=== PATIENT | male | born 1945 | race Caucasian/White ===

== ENCOUNTER 2020-03-22 06:31 | Outpatient (REF) | payer MEDICARE, SELFPAY ==
[2020-03-22 08:06] LABS: Cholesterol 104 mg/dL; Glucose Fasting 142 mg/dL (60-99); HDL Cholesterol 40 mg/dL; LDL Cholesterol Calculated 53 mg/dl; Triglycerides 58 mg/dL
[2020-03-22 10:31] LABS: Estimated Average Glucose 151 mg/dL; Hemoglobin A1c % 6.9 %
== END 2020-03-22 06:32 | disposition home or self-care (01) ==
LOC: HO.LAB 06:31
PROVIDERS: PCP Internal Medicine; Visit Provider Internal Medicine
DX: E11.9 Type 2 diabetes mellitus without complications (principal)
CPT/HCPCS: 36415; 80061; 82947; 83036

== ENCOUNTER → 2020-04-29 12:24 | Outpatient (BNVA) | payer MEDICARE, SELFPAY | PROVIDERS: PCP Internal Medicine; Referring Provider Internal Medicine; Visit Provider Internal Medicine Cardiovascular Disease | DX: I25.118 Atherosclerotic heart disease of native coronary artery with other forms of angina pectoris (principal); Z79.82 Long term (current) use of aspirin; Z79.899 Other long term (current) drug therapy | CPT/HCPCS: 99212 ==

== ENCOUNTER 2020-07-24 | Outpatient (REF) | payer MEDICARE, SELFPAY | END 2020-07-24 00:01 | disposition home or self-care (01) | LOC: HO.VC | PROVIDERS: Visit Provider Internal Medicine | DX: Z23 Encounter for immunization (principal) | CPT/HCPCS: 0011A ==

== ENCOUNTER 2020-08-20 | Outpatient (REF) | payer MEDICARE, SELFPAY | END 2020-08-20 00:01 | disposition home or self-care (01) | LOC: HO.VC | PROVIDERS: Visit Provider Internal Medicine | DX: Z23 Encounter for immunization (principal) | CPT/HCPCS: 0012A ==

== ENCOUNTER 2020-09-06 06:23 | Outpatient (REF) | payer MEDICARE, SELFPAY ==
[2020-09-06 07:34] LABS: Estimated Average Glucose 151 mg/dL; Hemoglobin A1c % 6.9 %
[2020-09-06 07:48] LABS: Cholesterol 114 mg/dL; HDL Cholesterol 42 mg/dL; LDL Cholesterol Calculated 57 mg/dl; Triglycerides 75 mg/dL
== END 2020-09-06 06:24 | disposition home or self-care (01) ==
LOC: HO.LAB 06:23
PROVIDERS: PCP Internal Medicine; Visit Provider Internal Medicine
DX: E11.9 Type 2 diabetes mellitus without complications (principal)
CPT/HCPCS: 36415; 80061; 83036

== ENCOUNTER → 2020-10-21 09:03 | Outpatient (BNVA) | payer MEDICARE, SELFPAY | PROVIDERS: PCP Internal Medicine; Referring Provider Internal Medicine; Visit Provider Internal Medicine Cardiovascular Disease | DX: I20.8 Other forms of angina pectoris (principal); I45.10 Unspecified right bundle-branch block | CPT/HCPCS: 99212 ==

== ENCOUNTER 2021-01-10 06:02 | Outpatient (REF) | payer MEDICARE, SELFPAY ==
[2021-01-10 08:07] LABS: Cholesterol 107 mg/dL; HDL Cholesterol 41 mg/dL; LDL Cholesterol Calculated 51 mg/dl; Triglycerides 75 mg/dL
[2021-01-10 08:12] LABS: Estimated Average Glucose 157 mg/dL; Hemoglobin A1c % 7.1 %
== END 2021-01-10 06:03 | disposition home or self-care (01) ==
LOC: HO.LAB 06:02
PROVIDERS: PCP Internal Medicine; Visit Provider Internal Medicine
DX: E11.9 Type 2 diabetes mellitus without complications (principal)
CPT/HCPCS: 36415; 80061; 83036

== ENCOUNTER 2021-03-17 08:51 | Outpatient (REF) | payer MEDICARE, SELFPAY | END 2021-03-17 08:52 | disposition home or self-care (01) | LOC: HO.LAB 08:51 | PROVIDERS: PCP Internal Medicine; Referring Provider Internal Medicine; Visit Provider Internal Medicine Cardiovascular Disease | DX: I25.10 Atherosclerotic heart disease of native coronary artery without angina pectoris (principal); I45.10 Unspecified right bundle-branch block | CPT/HCPCS: 36415; 84484; 93005; 99212 ==

== ENCOUNTER 2021-07-03 06:25 | Outpatient (REF) | payer MEDICARE, SELFPAY ==
[2021-07-03 06:35] LABS: MANUAL DIFF FLAG NO
[2021-07-03 07:17] LABS: Basophils Absolute Auto 0.1 X10*3/uL (0.0-0.2); Basophils Percent Auto 0.7 % (0-2); Eosinophils Percent Auto 0.2 % (0-4); Hematocrit 47.2 % (42.0-52.0); Hemoglobin 15.5 g/dl (14.0-18.0); Imm Gran Abs Auto 0.04 X10*3/uL (0.00-0.03); Imm Gran Pct Auto 0.5 % (0.0-0.4); Lymphocytes Absolute Auto 2.1 X10*3/uL (1.2-4.9); Lymphocytes Percent Auto 24.8 % (20-40); Mean Corpuscular HGB Conc 32.8 g/dl (31.0-36.0); Mean Corpuscular Hemoglobin 30.1 pg (27.0-33.0); Mean Corpuscular Volume 91.7 fL (80.0-98.0); Mean Platelet Volume 9.3 fL (9.4-12.4); Monocytes Absolute Auto 0.8 X10*3/uL (0.1-1.2); Monocytes Percent Auto 9.7 % (2-11); Neutrophils Absolute Auto 5.4 x10*3/uL (2.0-8.3); Neutrophils Percent Auto 64.1 % (45-73); Platelet Count 337 X10*3/uL (160-400); Red Blood Count 5.15 X10*6/uL (4.60-5.80); Red Cell Distribution Width 12.9 % (11.0-16.0); White Blood Count 8.4 X10*3/uL (4.8-10.8)
[2021-07-03 07:39] LABS: Alanine Aminotransferase 23 U/L (0-40); Alkaline Phosphatase 83 U/L (39-117); Anion Gap 10 (12-20); Aspartate Amino Transferase 18 U/L (5-37); Bilirubin Total 0.8 mg/dL (0.0-1.0); Blood Urea Nitrogen 18 mg/dL (9-16); Calcium 9.9 mg/dL (8.4-10.2); Carbon Dioxide 30 mmol/L (22-29); Chloride 104 mmol/L (96-108); Cholesterol 109 mg/dL; Estimated Glomerular Filt Rate > 60; Glucose Fasting 134 mg/dL (60-99); HDL Cholesterol 38 mg/dL; LDL Cholesterol Calculated 54 mg/dl; Potassium 4.7 mmol/L (3.3-5.1); Sodium 139 mmol/L (135-145); Total Protein 7.3 g/dL (6.5-8.0); Triglycerides 88 mg/dL
== END 2021-07-03 06:26 | disposition home or self-care (01) ==
LOC: HO.LAB 06:25
PROVIDERS: PCP Internal Medicine; Visit Provider Internal Medicine
DX: Z00.00 Encounter for general adult medical examination without abnormal findings (principal); Z13.0 Encounter for screening for diseases of the blood and blood-forming organs and certain disorders involving the immune mechanism
CPT/HCPCS: 36415; 80053; 80061; 85025

== ENCOUNTER → 2021-07-14 09:18 | Outpatient (BNVA) | payer MEDICARE, SELFPAY | PROVIDERS: PCP Internal Medicine; Referring Provider Internal Medicine; Visit Provider Internal Medicine Cardiovascular Disease | DX: I25.10 Atherosclerotic heart disease of native coronary artery without angina pectoris (principal); I45.10 Unspecified right bundle-branch block | CPT/HCPCS: 99212 ==

== ENCOUNTER 2021-11-20 09:58 | Outpatient (REF) | payer MEDICARE, SELFPAY ==
[2021-11-20 10:08] LABS: MANUAL DIFF FLAG NO
[2021-11-20 10:23] LABS: Basophils Percent Auto 0.5 % (0-2); Eosinophils Percent Auto 0.1 % (0-4); Hemoglobin 15.3 g/dl (14.0-18.0); Imm Gran Abs Auto 0.03 X10*3/uL (0.00-0.03); Imm Gran Pct Auto 0.4 % (0.0-0.4); Lymphocytes Absolute Auto 1.9 X10*3/uL (1.2-4.9); Lymphocytes Percent Auto 22.9 % (20-40); Mean Corpuscular Hemoglobin 30.7 pg (27.0-33.0); Mean Corpuscular Volume 90.4 fL (80.0-98.0); Mean Platelet Volume 9.4 fL (9.4-12.4); Monocytes Absolute Auto 0.9 X10*3/uL (0.1-1.2); Monocytes Percent Auto 10.5 % (2-11); Neutrophils Absolute Auto 5.3 x10*3/uL (2.0-8.3); Neutrophils Percent Auto 65.6 % (45-73); Platelet Count 315 X10*3/uL (160-400); Red Blood Count 4.98 X10*6/uL (4.60-5.80); Red Cell Distribution Width 13.4 % (11.0-16.0); White Blood Count 8.1 X10*3/uL (4.8-10.8)
[2021-11-20 10:40] LABS: Estimated Average Glucose 157 mg/dL; Hemoglobin A1c % 7.1 %
[2021-11-20 11:05] LABS: Alanine Aminotransferase 30 U/L (0-40); Albumin Level 4.2 g/dL (3.5-5.0); Alkaline Phosphatase 81 U/L (39-117); Anion Gap 12 (12-20); Aspartate Amino Transferase 21 U/L (5-37); Bilirubin Total 0.8 mg/dL (0.0-1.0); Blood Urea Nitrogen 18 mg/dL (9-16); Calcium 9.9 mg/dL (8.4-10.2); Carbon Dioxide 27 mmol/L (22-29); Chloride 103 mmol/L (96-108); Cholesterol 106 mg/dL; Estimated Glomerular Filt Rate > 60; Glucose Fasting 106 mg/dL (60-99); HDL Cholesterol 43 mg/dL; LDL Cholesterol Calculated 51 mg/dl; Potassium 4.8 mmol/L (3.3-5.1); Sodium 137 mmol/L (135-145); Total Protein 7.3 g/dL (6.5-8.0); Triglycerides 61 mg/dL
== END 2021-11-20 09:59 | disposition home or self-care (01) ==
LOC: HO.LAB 09:58
PROVIDERS: PCP Internal Medicine; Visit Provider Internal Medicine
DX: Z00.00 Encounter for general adult medical examination without abnormal findings (principal); E11.9 Type 2 diabetes mellitus without complications; Z13.0 Encounter for screening for diseases of the blood and blood-forming organs and certain disorders involving the immune mechanism
CPT/HCPCS: 36415; 80053; 80061; 83036; 85025

== ENCOUNTER → 2022-02-19 14:38 | Outpatient (BNVA) | payer MEDICARE, SELFPAY | PROVIDERS: PCP Internal Medicine; Referring Provider Internal Medicine; Visit Provider Nurse Practitioner Family | DX: I25.10 Atherosclerotic heart disease of native coronary artery without angina pectoris (principal); I49.3 Ventricular premature depolarization; I45.10 Unspecified right bundle-branch block; E78.5 Hyperlipidemia, unspecified | CPT/HCPCS: 93005; 99212 ==

== ENCOUNTER 2022-03-12 09:24 | Inpatient (IN) | payer MEDICARE, SELFPAY ==
--- NOTE | ~2022-03-12 | NM_ITS ---
RADIONUCLIDE GASTROINTESTINAL BLEEDING STUDY CLINICAL INDICATION: Suspected GI bleeding. PROCEDURE: Following the bolus intravenous administration of 25 millicuries technetium 99m labeled autologous red blood cells, rapid sequence dynamic gamma scintillation camera images were obtained over the abdomen and pelvis for an initial observation interval of 90 minutes. Subsequent frontal, lateral images were also obtained. FINDINGS: No abnormal accumulations of activity are seen in the abdomen or pelvis. Incidental note is made of progressive filling of distended bladder. NM/NM GI bleeding IMPRESSION: No gastrointestinal hemorrhage is identified. This critical result was discussed with Tonia Olson NP at 4:47 PM on 03/12/2022 and it was ascertained that the content and urgency of the report was understood at the time of direct communication.
[2022-03-12 09:35] VITALS: BP 128/76; PULSE 68; RESP 18; TEMP 36.2; O2SAT 95; BMI 25.0
--- NOTE | 2022-03-12 09:42 | ECG_ITS ---
Test Reason : gi bleed Blood Pressure : / mmHG Vent. Rate : 066 BPM Atrial Rate : 066 BPM P-R Int : 178 ms QRS Dur : 110 ms QT Int : 394 ms P-R-T Axes : 015 -24 036 degrees QTc Int : 413 ms Normal sinus rhythm Incomplete right bundle branch block Borderline ECG When compared with ECG of 07-JUL-2018 17:26, Premature ventricular complexes are no longer Present Referred By: Generic ED Physician Electronically Signed By:KAYLIN VELAZQUEZ
[2022-03-12 10:05] LABS: MANUAL DIFF FLAG NO
[2022-03-12 10:07] LABS: Basophils Absolute Auto 0.1 X10*3/uL (0.0-0.2); Basophils Percent Auto 0.5 % (0-2); Eosinophils Percent Auto 0.1 % (0-4); Hematocrit 40.8 % (42.0-52.0); Hemoglobin 13.8 g/dl (14.0-18.0); Imm Gran Abs Auto 0.03 X10*3/uL (0.00-0.03); Imm Gran Pct Auto 0.3 % (0.0-0.4); Lymphocytes Absolute Auto 1.7 X10*3/uL (1.2-4.9); Mean Corpuscular HGB Conc 33.8 g/dl (31.0-36.0); Mean Corpuscular Hemoglobin 30.6 pg (27.0-33.0); Mean Corpuscular Volume 90.5 fL (80.0-98.0); Mean Platelet Volume 9.2 fL (9.4-12.4); Monocytes Absolute Auto 0.9 X10*3/uL (0.1-1.2); Monocytes Percent Auto 9.3 % (2-11); Neutrophils Absolute Auto 6.6 x10*3/uL (2.0-8.3); Neutrophils Percent Auto 71.8 % (45-73); Platelet Count 319 X10*3/uL (160-400); Red Blood Count 4.51 X10*6/uL (4.60-5.80); Red Cell Distribution Width 12.8 % (11.0-16.0); White Blood Count 9.2 X10*3/uL (4.8-10.8)
[2022-03-12 10:23] LABS: Alanine Aminotransferase 23 U/L (0-40); Albumin Level 4.1 g/dL (3.5-5.0); Alkaline Phosphatase 74 U/L (39-117); Anion Gap 13 (12-20); Aspartate Amino Transferase 17 U/L (5-37); Bilirubin Direct 0.4 mg/dL (0.0-0.5); Bilirubin Total 0.9 mg/dL (0.0-1.0); Blood Urea Nitrogen 24 mg/dL (9-16); Calcium 9.2 mg/dL (8.4-10.2); Carbon Dioxide 26 mmol/L (22-29); Chloride 103 mmol/L (96-108); Creatinine Clr Calc Pharmacy 81.9; Estimated Glomerular Filt Rate > 60; Glucose Random 170 mg/dL (60-115); Lipase 35 U/L (8-78); Potassium 4.8 mmol/L (3.3-5.1); Sodium 137 mmol/L (135-145); Total Protein 6.9 g/dL (6.5-8.0)
[2022-03-12 10:28] LABS: Troponin-I High Sensitivity 9.7 ng/L (<3.5-35.0)
[2022-03-12 10:30] LABS: COVID-19 Test Negative (Negative); IDNOW Serial# 55D5AD1C
[2022-03-12 11:57] VITALS: BP 133/81; PULSE 62; RESP 18; TEMP 36.5; O2SAT 99
--- NOTE | 2022-03-12 11:58 | ED_ITS ---
HPI - GI Bleed General Chief complaint: GI Bleed Stated complaint: GI Bleed Time Seen by Provider: 03/12/22 10:26 Source: patient and family Mode of arrival: ambulatory Limitations: no limitations History of Present Illness HPI Narrative: 76 yo male with history of CAD on 81 mg ASA, divert with partial colectomy, HLD here with complaints of BRB per rectum since yesterday up to 6 episodes filling the toilet bowl with lower abdominal cramping. No nausea, vomiting, diarrhea, fevers, chills, urinary symptoms Last scope [address] Loza showed diverticulosis, colitis Related Data Home Medications Medication Instructions Recorded Confirmed aspirin 81 mg tablet,delayed 81 mg PO DAILY 04/29/20 03/12/22 release esomeprazole magnesium 40 mg 40 mg PO DAILY 04/29/20 03/12/22 capsule,delayed release mesalamine 0.375 gram 1.5 g PO DAILY 04/29/20 03/12/22 capsule,extended release 24 hr Previous Rx's Medication Instructions Recorded atorvastatin 40 mg tablet 40 mg PO DAILY #90 tabs 02/09/22 Allergies Allergy/AdvReac Type Severity Reaction Status Date / Time amoxicillin [Augmentin] Allergy Severe ANAPHYLAXIS Verified 02/19/22 14:52 clavulanic acid Allergy Severe ANAPHYLAXIS Verified 02/19/22 14:52 [CLAVULANIC ACID] Penicillins [PENICILLINS] Allergy Severe ANAPHYLAXIS Verified 02/19/22 14:52 sulfamethoxazole Allergy Severe Rash Verified 02/19/22 14:52 [From Bactrim] trimethoprim [From Bactrim] Allergy Severe Rash Verified 02/19/22 14:52 metronidazole [From FLAGYL] Allergy Intermediate RASH,NAUSEA Verified 02/19/22 14:52 VOMITING ciprofloxacin [From CIPRO] Allergy Mild RASH Verified 02/19/22 14:52 Iodinated Contrast Media Allergy Unknown RASH Verified 02/19/22 14:52 [IV Dye, Iodine Containing] levofloxacin [From LEVAQUIN] Allergy Unknown RASH Verified 02/19/22 14:52 metoprolol Allergy Unknown rash Verified 02/19/22 14:52 piperacillin [Zosyn] Allergy Unknown UNK. Verified 02/19/22 14:52 Sulfa (Sulfonamide Allergy Unknown rash Verified 02/19/22 14:52 Antibiotics) tazobactam [Zosyn] Allergy Unknown UNK. Verified 02/19/22 14:52 Review of Systems Review of Systems: Yes all other systems are reviewed and are negative Constitutional: Constitutional: Reports no additional constitutional complaints, Denies body ache(s), Denies chills, Denies fever(s), Denies he adache(s) and Denies weakness Eyes: Eyes: Reports no additional eye complaints and Denies change in vision ENT: Reports system reviewed and no additional complaints, except as documented, Denies dizziness, Denies headache(s), Denies nasal congestion, Denies nasal discharge and Denies neck pain Cardiovascular: Cardiovascular: Reports no additional cardiovascular complaints, Denies chest pain, Denies leg edema and Denies dyspnea Respiratory: Respiratory: Reports no additional respiratory complaints, Denies cough and Denies dyspnea Gastrointestinal: Gastrointestinal: Reports no additional gastrointestinal complaints, Reports abdominal pain, Reports hematochezia, Denies diarrhea, Denies nausea and Denies vomiting Genitourinary: Genitourinary: Denies urinary incontinence Musculoskeletal: Musculoskeletal: Reports no additional musculoskeletal complaints, Denies back pain, Denies arthralgias, Denies joint swelling, Denies neck pain, Denies numbness and Denies tingling Integumentary/Breasts: Skin/Breast: Reports system reviewed and no additional complaints, except as docu and Denies rash Neurologic: Reports system reviewed and no additional complaints, except as documented, Denies Abnormal speech present, Denies dizziness, Denies headache(s), Denies numbness, Denies tingling and Denies weakness PMFSH Past Medical History Attestation statement: The following information was validated with the patient. Source: old records reviewed and nursing notes reviewed Medical History CAD (coronary artery disease) Colitis Diverticulitis GERD (gastroesophageal reflux disease) Hepatic abscess Hyperglycemia Hyperlipidemia PVC (premature ventricular contraction) RBBB Stable angina Surgical History H/O colectomy History of colonoscopy History of surgery on arm Hx of hernia repair Family History Family History Family/Other Prostate cancer CVD (cardiovascular disease) Father CVD (cardiovascular disease) Social History Social History (Reviewed 03/12/22 @ 18:02 by MASSIEL Delvalle Housing: House Alcohol intake: current Alcohol intake frequency: holidays/special occasions only Patient Tobacco Use Status: Former Tobacco user e-Cigarette/Vaping Use: Never Used Second Hand Smoke Exposure: No Use of substances other than those prescribed or required for medical reasons: No Advance Directives: No Advance Directives Information Provided: No service: No Current occupational status: retired Cognitive needs: No Hearing needs: No Vision needs: No Physical Exam Vital Signs: Vital Signs: Last Vital Signs Temp 97.7 F 03/12/22 11:57 Pulse 67 03/12/22 16:18 Resp 18 03/12/22 11:57 BP 127/74 03/12/22 16:18 Pulse Ox 96 03/12/22 16:18 O2 Del Method 03/12/22 16:18 BMI result Body Mass Index 25.0 Const: General: cooperative, healthy appearing, comfortable and no acute distress Orientation/consciousness: patient oriented x3 Limitations: no limitations HEENT: Head: Yes normal to inspection Ears: hearing grossly normal bilaterally General nose exam: Normal external nose present Face and sinus: Yes normal facial exam Mouth: Normal oral and palatal mucosa present Throat: Yes posterior oropharynx normal Eyes: General: appearance normal, both eyes and all related structures Pupils: Equal, round and reactive pupils present Neck: Neck: Yes normal visual inspection Chest: Chest palpation & inspection: normal inspection of the chest Resp: Effort & Inspection: normal respiratory effort Auscultation: clear to auscultation bilaterally Cardio: Rate: regular rate Rhythm: regular rhythm Peripheral pulses: Peripheral pulses 2+ throughout GI: Other: Rectal exam with BRB Inspection: Yes normal to inspection Palpation (GI): Soft to palpation and Tenderness to palpation present (GI) (LLQ AP/no rebound or guarding ) Auscultation: normal bowel sounds Back/Spine/Pelvis: Thoracic/Lumbar Spine: thoracic and lumbar spine normal to inspection Skin: General skin exam: no rashes or lesions noted Neuro: General: patient oriented x3, no focal motor deficits and normal sensa tion to monofilament Cranial nerves: Yes Equal, round and reactive pupils present Cognition (Neuro): normal cognition Speech: No Abnormal speech present Gait exam (Neuro): Normal gait present Motor exam (neuro): 5/5 motor strength present throughout Extrem: General: Yes normal to inspection Course Course Course Narrative: After I saw the patient he went to the bathroom and had approximately 100ml of BRB in a hat. Spoke to Dr Loza. Recommended NM GIB study Reevaluation(s) Reevaluation #1: 1500-patient was seen at the bedside Dr. Mcclure. I did speak to the medicine te am (Dr Albert). At this point they are not comfortable admitting the patient and till his nuclear scan is back. They feel if he has active bleeding he will need transfer to a tertiary care center for IR angio. They will admit the patient if there is no active bleeding seen. Reevaluation #2: 1615-patient returned from nuclear med and had a large bowel movement of bloody stools 200ml. Nursing to place a 2nd IV. Blood pressure is stable. Will r epeat CBC Reevaluation #3: 1650-Received call from radiology. No active GIB on nuclear medicine study. distended bladder. will have patient void and obtain post void bladder scan. After patient returned from nuclear medicine he went to the bathroom and had 200ml of BRB from rectum in the hat. I did discuss this again with Dr Mcclure who recommended admission and observation, trending hemoglobin and keeping NPO if procedure is needed. Will speak to medicine. Additional Reevaluation(s): 1715-Spoke to Ellen HEIN who accepted admission. MDM - GI Bleed MDM Narrative Medical decision making narrative: 76 yo male here with BRB from rectum multiple episodes since yesterday with lower abdominal cramping on ASA only. Rectal exam with BRB Mild tenderness to LLQ Likely GIB. Would like to obtain GIB CT but patient reports he cannot have contrast allergy with reports of hives, chills. HGB in November 15.3, today 13.8. BUN elevated. Will repeat CBC, check lactic acid, PT/INR Will discuss with GI Differential Diagnosis Differential diagnosis: Likely Lower gastrointestinal hemorrhage Medical Records Attestation: I reviewed the patient's medical records. Lab Data Attestation: I reviewed the patient's lab results. Result diagrams: 03/12/22 22:17 03/12/22 09:57 Labs: Lab Results 03/12/22 03/12/22 03/12/22 Range/Units 09:57 09:57 09:57 WBC 9.2 (4.8-10.8) X10*3/uL RBC 4.51 L (4.60-5.80) X10*6/uL Hgb 13.8 L (14.0-18.0) g/dl Hct 40.8 L (42.0-52.0) % MCV 90.5 (80.0-98.0) fL MCH 30.6 (27.0-33.0) pg MCHC 33.8 (31.0-36.0) g/dl RDW 12.8 (11.0-16.0) % Plt Count 319 (160-400) X10*3/uL MPV 9.2 L (9.4-12.4) fL Immature Gran % (Auto) 0.3 (0.0-0.4) % Neut % (Auto) 71.8 (45-73) % Lymph % (Auto) 18.0 L (20-40) % [place] % (Auto) 9.3 (2-11) % Eos % (Auto) 0.1 (0-4) % Baso % (Auto) 0.5 (0-2) % Lymph # (Auto) 1.7 (1.2-4.9) X10*3/uL [place] # (Auto) 0.9 (0.1-1.2) X10*3/uL Eos # (Auto) 0.0 (0.0-0.4) X10*3/uL Baso # (Auto) 0.1 (0.0-0.2) X10*3/uL Abs Immat Gran (auto) 0.03 (0.00-0.03) X10*3/uL Absolute Neuts (auto) 6.6 (2.0-8.3) x10*3/uL Absolute Nucleated RBC 0.000 (0.0-0.012) X10*3/uL Nucleated RBC % (auto) 0.0 (0.0-0.2) /100WBC PT (10.0-13.1) SEC INR (0.9-1.1) Sodium 137 (135-145) mmol/L Potassium 4.8 (3.3-5.1) mmol/L Chloride 103 (96-108) mmol/L Carbon Dioxide 26 (22-29) mmol/L Anion Gap 13 (12-20) BUN 24 H (9-16) mg/dL Creatinine 0.73 (0.5-1.4) mg/dL Estim Creat Clear Calc 81.9 Estimated GFR > 60 Random Glucose 170 H (60-115) mg/dL Lactic Acid (0.5-2.0) mmol/L Calcium 9.2 D (8.4-10.2) mg/dL Total Bilirubin 0.9 (0.0-1.0) mg/dL Direct Bilirubin 0.4 (0.0-0.5) mg/dL AST 17 (5-37) U/L ALT 23 (0-40) U/L Alkaline Phosphatase 74 (39-117) U/L Troponin I High Sens 9.7 (<3.5-35.0) ng/L Total Protein 6.9 (6.5-8.0) g/dL Albumin 4.1 (3.5-5.0) g/dL Lipase 35 (8-78) U/L Stool Occult Blood (NEGATIVE) COVID-19 (DENISE) (Negative) COVID-19 Clin Com Blood Type Antibody Screen 03/12/22 03/12/22 03/12/22 Range/Units 09:57 09:57 12:16 WBC (4.8-10.8) X10*3/uL RBC (4.60-5.80) X10*6/uL Hgb (14.0-18.0) g/dl Hct (42.0-52.0) % MCV (80.0-98.0) fL MCH (27.0-33.0) pg MCHC (31.0-36.0) g/dl RDW (11.0-16.0) % Plt Count (160-400) X10*3/uL MPV (9.4-12.4) fL Immature Gran % (Auto) (0.0-0.4) % Neut % (Auto) (45-73) % Lymph % (Auto) (20-40) % [place] % (Auto) (2-11) % Eos % (Auto) (0-4) % Baso % (Auto) (0-2) % Lymph # (Auto) (1.2-4.9) X10*3/uL [place] # (Auto) (0.1-1.2) X10*3/uL Eos # (Auto) (0.0-0.4) X10*3/uL Baso # (Auto) (0.0-0.2) X10*3/uL Abs Immat Gran (auto) (0.00-0.03) X10*3/uL Absolute Neuts (auto) (2.0-8.3) x10*3/uL Absolute Nucleated RBC (0.0-0.012) X10*3/uL Nucleated RBC % (auto) (0.0-0.2) /100WBC PT (10.0-13.1) SEC INR (0.9-1.1) Sodium (135-145) mmol/L Potassium (3.3-5.1) mmol/L Chloride (96-108) mmol/L Carbon Dioxide (22-29) mmol/L Anion Gap (12-20) BUN (9-16) mg/dL Creatinine (0.5-1.4) mg/dL Estim Creat Clear Calc Estimated GFR Random Glucose (60-115) mg/dL Lactic Acid (0.5-2.0) mmol/L Calcium (8.4-10.2) mg/dL Total Bilirubin (0.0-1.0) mg/dL Direct Bilirubin (0.0-0.5) mg/dL AST (5-37) U/L ALT (0-40) U/L Alkaline Phosphatase (39-117) U/L Troponin I High Sens (<3.5-35.0) ng/L Total Protein (6.5-8.0) g/dL Albumin (3.5-5.0) g/dL Lipase (8-78) U/L Stool Occult Blood POSITIVE (NEGATIVE) COVID-19 (DENISE) Negative (Negative) COVID-19 Clin Com See Note Blood Type O Negative Antibody Screen NEGATIVE 03/12/22 03/12/22 03/12/22 Range/Units 12:21 12:21 12:21 WBC 8.7 (4.8-10.8) X10*3/uL RBC 4.48 L (4.60-5.80) X10*6/uL Hgb 13.5 L (14.0-18.0) g/dl Hct 40.8 L (42.0-52.0) % MCV 91.1 (80.0-98.0) fL MCH 30.1 (27.0-33.0) pg MCHC 33.1 (31.0-36.0) g/dl RDW 12.8 (11.0-16.0) % Plt Count 326 (160-400) X10*3/uL MPV 9.5 (9.4-12.4) fL Immature Gran % (Auto) 0.5 H (0.0-0.4) % Neut % (Auto) 68.0 (45-73) % Lymph % (Auto) 22.2 (20-40) % [place] % (Auto) 8.6 (2-11) % Eos % (Auto) 0.1 (0-4) % Baso % (Auto) 0.6 (0-2) % Lymph # (Auto) 1.9 (1.2-4.9) X10*3/uL [place] # (Auto) 0.8 (0.1-1.2) X10*3/uL Eos # (Auto) 0.0 (0.0-0.4) X10*3/uL Baso # (Auto) 0.1 (0.0-0.2) X10*3/uL Abs Immat Gran (auto) 0.04 H (0.00-0.03) X10*3/uL Absolute Neuts (auto) 5.9 (2.0-8.3) x10*3/uL Absolute Nucleated RBC 0.000 (0.0-0.012) X10*3/uL Nucleated RBC % (auto) 0.0 (0.0-0.2) /100WBC PT 13.3 H (10.0-13.1) SEC INR 1.2 H (0.9-1.1) Sodium (135-145) mmol/L Potassium (3.3-5.1) mmol/L Chloride (96-108) mmol/L Carbon Dioxide (22-29) mmol/L Anion Gap (12-20) BUN (9-16) mg/dL Creatinine (0.5-1.4) mg/dL Estim Creat Clear Calc Estimated GFR Random Glucose (60-115) mg/dL Lactic Acid 1.0 (0.5-2.0) mmol/L Calcium (8.4-10.2) mg/dL Total Bilirubin (0.0-1.0) mg/dL Direct Bilirubin (0.0-0.5) mg/dL AST (5-37) U/L ALT (0-40) U/L Alkaline Phosphatase (39-117) U/L Troponin I High Sens (<3.5-35.0) ng/L Total Protein (6.5-8.0) g/dL Albumin (3.5-5.0) g/dL Lipase (8-78) U/L Stool Occult Blood (NEGATIVE) COVID-19 (DENISE) (Negative) COVID-19 Clin Com Blood Type Antibody Screen 03/12/22 Range/Units 16:26 WBC 8.7 (4.8-10.8) X10*3/uL RBC 4.39 L (4.60-5.80) X10*6/uL Hgb 13.6 L (14.0-18.0) g/dl Hct 40.0 L (42.0-52.0) % MCV 91.1 (80.0-98.0) fL MCH 31.0 (27.0-33.0) pg MCHC 34.0 (31.0-36.0) g/dl RDW 12.8 (11.0-16.0) % Plt Count 312 (160-400) X10*3/uL MPV 9.2 L (9.4-12.4) fL Immature Gran % (Auto) 0.7 H (0.0-0.4) % Neut % (Auto) 65.6 (45-73) % Lymph % (Auto) 23.4 (20-40) % [place] % (Auto) 9.5 (2-11) % Eos % (Auto) 0.1 (0-4) % Baso % (Auto) 0.7 (0-2) % Lymph # (Auto) 2.0 (1.2-4.9) X10*3/uL [place] # (Auto) 0.8 (0.1-1.2) X10*3/uL Eos # (Auto) 0.0 (0.0-0.4) X10*3/uL Baso # (Auto) 0.1 (0.0-0.2) X10*3/uL Abs Immat Gran (auto) 0.06 H (0.00-0.03) X10*3/uL Absolute Neuts (auto) 5.7 (2.0-8.3) x10*3/uL Absolute Nucleated RBC 0.000 (0.0-0.012) X10*3/uL Nucleated RBC % (auto) 0.0 (0.0-0.2) /100WBC PT (10.0-13.1) SEC INR (0.9-1.1) Sodium (135-145) mmol/L Potassium (3.3-5.1) mmol/L Chloride (96-108) mmol/L Carbon Dioxide (22-29) mmol/L Anion Gap (12-20) BUN (9-16) mg/dL Creatinine (0.5-1.4) mg/dL Estim Creat Clear Calc Estimated GFR Random Glucose (60-115) mg/dL Lactic Acid (0.5-2.0) mmol/L Calcium (8.4-10.2) mg/dL Total Bilirubin (0.0-1.0) mg/dL Direct Bilirubin (0.0-0.5) mg/dL AST (5-37) U/L ALT (0-40) U/L Alkaline Phosphatase (39-117) U/L Troponin I High Sens (<3.5-35.0) ng/L Total Protein (6.5-8.0) g/dL Albumin (3.5-5.0) g/dL Lipase (8-78) U/L Stool Occult Blood (NEGATIVE) COVID-19 (DENISE) (Negative) COVID-19 Clin Com Blood Type Antibody Screen Imaging Data nuclear medicine GIB study: Attestation: I personally reviewed and interpreted this imaging study as follows: Radiologist's impression: TECHNIQUE: Ultrasound of the deep veins is performed from the hip to the calf with compression sonography and color and pulse Doppler assessment. Spectral analysis with color-flow imaging is performed. FINDINGS: There is normal venous compression and respiratory variation and augmented flow. The visualized common femoral vein, superficial femoral vein, profunda femoral vein, popliteal vein, and the trifurcation region shows no evidence of deep venous thrombosis. ? There is a complex Hayden's cyst in the popliteal fossa measuring a maximum length of 3.3 cm. If the patient's symptoms persist, followup ultrasound in 5 days 7 days might be of value to exclude proximal propagation from a non-visualized calf vein. US/US venous duplex LE LT IMPRESSION: Left-sided Hayden's cyst as described above. No DVT demonstrated in the left lower extremity. ECG Data Attestation: I personally reviewed and interpreted this ECG as follows: ECG interpretation date: 03/12/22 ECG interpretation time: 09:46 Interpretation: NSR with rate 66, normal pr, normal qrs, normal qt, RBBB Discharge Plan Discharge Clinical Impression: Bright red rectal bleeding Patient Disposition: Admitted As Inpatient
[2022-03-12 12:27] LABS: MANUAL DIFF FLAG NO
[2022-03-12 12:42] LABS: OBS Int Ctl Valid YES; OBS1 POSITIVE (NEGATIVE)
[2022-03-12 12:42] LABS: Basophils Absolute Auto 0.1 X10*3/uL (0.0-0.2); Basophils Percent Auto 0.6 % (0-2); Eosinophils Percent Auto 0.1 % (0-4); Hematocrit 40.8 % (42.0-52.0); Hemoglobin 13.5 g/dl (14.0-18.0); Imm Gran Abs Auto 0.04 X10*3/uL (0.00-0.03); Imm Gran Pct Auto 0.5 % (0.0-0.4); Lymphocytes Absolute Auto 1.9 X10*3/uL (1.2-4.9); Lymphocytes Percent Auto 22.2 % (20-40); Mean Corpuscular HGB Conc 33.1 g/dl (31.0-36.0); Mean Corpuscular Hemoglobin 30.1 pg (27.0-33.0); Mean Corpuscular Volume 91.1 fL (80.0-98.0); Mean Platelet Volume 9.5 fL (9.4-12.4); Monocytes Absolute Auto 0.8 X10*3/uL (0.1-1.2); Monocytes Percent Auto 8.6 % (2-11); Neutrophils Absolute Auto 5.9 x10*3/uL (2.0-8.3); Platelet Count 326 X10*3/uL (160-400); Red Blood Count 4.48 X10*6/uL (4.60-5.80); Red Cell Distribution Width 12.8 % (11.0-16.0); White Blood Count 8.7 X10*3/uL (4.8-10.8)
[2022-03-12 12:46] LABS: INTERNATIONAL NORM RATIO 1.2 (0.9-1.1); Prothrombin Time 13.3 SEC (10.0-13.1)
--- NOTE | 2022-03-12 13:19 | PHA.MEDREC ---
Pharmacy Consult ? Medication Reconciliation Pharmacy has completed the medication reconciliation. Patient states he was on mesalamine 2 qd (his doctor told him to decrease dose) but now went back to 4 caps. Thanks Julissa
--- NOTE | 2022-03-12 15:13 | P.EN_ITS ---
Event Note Date of Service: 03/12/22 Event Note: GI Consult-Full note dictated. Patient is being seen in the [facility] Med Dept during his bleeding scan. Imp: Lower GI bleed most c/w a diverticular bleed. I don't think this is due to his underlying colitis. He seems to have stabilized since arrival in the ER. His Hgb is only minimally decreased and has remained stable, and the scan does not seem to be showing any activity in first 15 minutes. His abdominal exam is benign. Rec: Supportive care, follow Hgb, NPO for today. I don't think he will need a colonoscopy at this time given the most recent exam being in 2019. If he has active bleeding he may need IR angiography for control of bleeding. Will follow with you. D/W patient in detail. Thanks
[2022-03-12 16:18] VITALS: BP 127/74; PULSE 67; O2SAT 96
[2022-03-12] MEDS: Acetaminophen 325 MG TABLET 975 MG PO (16:19)
[2022-03-12 16:31] LABS: MANUAL DIFF FLAG NO
[2022-03-12 16:33] LABS: Basophils Absolute Auto 0.1 X10*3/uL (0.0-0.2); Basophils Percent Auto 0.7 % (0-2); Eosinophils Percent Auto 0.1 % (0-4); Hemoglobin 13.6 g/dl (14.0-18.0); Imm Gran Abs Auto 0.06 X10*3/uL (0.00-0.03); Imm Gran Pct Auto 0.7 % (0.0-0.4); Lymphocytes Percent Auto 23.4 % (20-40); Mean Corpuscular Volume 91.1 fL (80.0-98.0); Mean Platelet Volume 9.2 fL (9.4-12.4); Monocytes Absolute Auto 0.8 X10*3/uL (0.1-1.2); Monocytes Percent Auto 9.5 % (2-11); Neutrophils Absolute Auto 5.7 x10*3/uL (2.0-8.3); Neutrophils Percent Auto 65.6 % (45-73); Platelet Count 312 X10*3/uL (160-400); Red Blood Count 4.39 X10*6/uL (4.60-5.80); Red Cell Distribution Width 12.8 % (11.0-16.0); White Blood Count 8.7 X10*3/uL (4.8-10.8)
--- NOTE | 2022-03-12 16:50 | PC.NURSE ---
pt up to bathroom, 40z piotr blood in hat, PROFESSOR OF THEOLOGY Tonia made aware, repeat CBC ordered
--- NOTE | 2022-03-12 17:55 | PM.IMHP ---
History of Present Illness Date of Service: 03/12/22 Attending physician on admission: Keiko Hsieh Chief Complaint: Rectal Bleeding This is a 76-year-old male who presents to the emergency department today with complaints of rectal bleeding. Patient began having crampy lower abdominal pain followed by bouts of rectal bleeding. No significant associated diarrhea, no fever, no chills. Patient has history of recurrent diverticulitis necessitating laparoscopic sigmoid colectomy in 2010. He had recurrent episode diverticular bleeding in 2013. Since that time he has not had any issues with rectal bleeding or diverticulitis. He has had multiple episodes of rectal bleeding yesterday as well as today. Today in the emergency department he had few episodes of rectal bleeding including clots. He underwent a nuclear bleeding scan which showed no evidence of acute GI bleeding. He was seen in the emergency department by GI who recommended admission for close monitoring and conservative management. His H/H was repeated in the ED and has remained stable as well as his vital sign despite multiple episodes of rectal bleeding. He will be admitted to the hospital for further management. COVID-19 vaccination status: Moderna x2 as well as 2 booster shots Review of Systems Review of Systems: Yes all other systems are reviewed and are negative Constitutional: Constitutional: Denies chills and Denies fever(s) ENT: Reports dizziness Cardiovascular: Cardiovascular: Denies chest pain and Denies palpitations Respiratory: Respiratory: Denies cough Gastrointestinal: Gastrointestinal: Reports abdominal pain, Reports hematochezia, Denies nausea and Denies vomiting Neurologic: Reports dizziness Endocrine: Endocrine: Denies palpitations [facility] Medical History CAD (coronary artery disease) Colitis Diverticulitis GERD (gastroesophageal reflux disease) Hepatic abscess Hyperglycemia Hyperlipidemia PVC (premature ventricular contraction) RBBB Stable angina Functional capacity: independent ambulation Family History Family/Other Prostate cancer CVD (cardiovascular disease) Father CVD (cardiovascular disease) Surgical History H/O colectomy History of colonoscopy History of surgery on arm Hx of hernia repair Social History Housing: House Alcohol intake: current Alcohol intake frequency: holidays/special occasions only Patient Tobacco Use Status: Former Tobacco user e-Cigarette/Vaping Use: Never Used Second Hand Smoke Exposure: No Use of substances other than those prescribed or required for medical reasons: No Advance Directives: No Advance Directives Information Provided: No service: No Current occupational status: retired Cognitive needs: No Hearing needs: No Vision needs: No Meds Allergies Allergy/AdvReac Type Severity Reaction Status Date / Time amoxicillin [Augmentin] Allergy Severe ANAPHYLAXIS Verified 02/19/22 14:52 clavulanic acid Allergy Severe ANAPHYLAXIS Verified 02/19/22 14:52 [CLAVULANIC ACID] Penicillins [PENICILLINS] Allergy Severe ANAPHYLAXIS Verified 02/19/22 14:52 sulfamethoxazole Allergy Severe Rash Verified 02/19/22 14:52 [From Bactrim] trimethoprim [From Bactrim] Allergy Severe Rash Verified 02/19/22 14:52 metronidazole [From FLAGYL] Allergy Intermediate RASH,NAUSEA Verified 02/19/22 14:52 VOMITING ciprofloxacin [From CIPRO] Allergy Mild RASH Verified 02/19/22 14:52 Iodinated Contrast Media Allergy Unknown RASH Verified 02/19/22 14:52 [IV Dye, Iodine Containing] levofloxacin [From LEVAQUIN] Allergy Unknown RASH Verified 02/19/22 14:52 metoprolol Allergy Unknown rash Verified 02/19/22 14:52 piperacillin [Zosyn] Allergy Unknown UNK. Verified 02/19/22 14:52 Sulfa (Sulfonamide Allergy Unknown rash Verified 02/19/22 14:52 Antibiotics) tazobactam [Zosyn] Allergy Unknown UNK. Verified 02/19/22 14:52 Active Medications: Current Medications Acetaminophen (Acetaminophen 325 Mg Tablet) 650 mg PO Q6H PRN PRN Reason: Pain, Mild (Pain Scale 1-3) Melatonin (Melatonin 3 Mg Tablet) 3 mg PO BEDTIME PRN PRN Reason: Insomnia Ondansetron HCl (Ondansetron Hcl 4 Mg/2 Ml Vial) 4 mg IVPUSH Q8H PRN PRN Reason: Nausea and Vomiting Pharmacy Consult (Consult Rx Perform Med Rec) 1 each MISCELLANE ONCE PRN PRN Reason: Consult order Sodium Chloride (0.9 % Sodium Chloride Flush 3 Ml Syringe) 3 ml IVFLUSH [facility] Medications Medication Instructions Recorded Confirmed Last Taken Type aspirin 81 mg tablet,delayed 81 mg PO DAILY 04/29/20 03/12/22 03/11/22 History release esomeprazole magnesium 40 mg 40 mg PO DAILY 04/29/20 03/12/22 03/12/22 History capsule,delayed release mesalamine 0.375 gram 1.5 g PO DAILY 04/29/20 03/12/22 03/12/22 History capsule,extended release 24 hr Physical Exam Vital Signs and Narrative: Vital Signs: Last Vital Signs Temp 97.7 F 03/12/22 11:57 Pulse 67 03/12/22 16:18 Resp 18 03/12/22 11:57 BP 127/74 03/12/22 16:18 Pulse Ox 96 03/12/22 16:18 O2 Del Method 03/12/22 16:18 BMI result Body Mass Index 25.0 Const: General: cooperative, comfortable, alert and awake Nutritional Appearance: average body habitus Orientation/consciousness: patient oriented x3 Resp: Effort & Inspection: normal respiratory effort and able to speak in complete sentences Cardio: Rate: regular rate Heart sounds: S1 normal heart sound present and S2 normal heart sound present GI: Inspection: No distended Palpation (GI): Soft to palpation and nontender Neuro: General: patient oriented x3 and CN's II-XI intact bilaterally Extrem: Other: Able to move all 4 extremities spontaneously General: Yes no pedal edema Results Labs CBC and Chem 7: 03/12/22 16:26 03/12/22 09:57 Labs: Laboratory Results - last 24 hr 03/12/22 03/12/22 03/12/22 09:57 09:57 09:57 MCV 90.5 MCH 30.6 MCHC 33.8 RDW 12.8 Plt Count 319 MPV 9.2 L Immature Gran % (Auto) 0.3 Neut % (Auto) 71.8 Lymph % (Auto) 18.0 L [place] % (Auto) 9.3 Eos % (Auto) 0.1 Baso % (Auto) 0.5 Lymph # (Auto) 1.7 [place] # (Auto) 0.9 Eos # (Auto) 0.0 Baso # (Auto) 0.1 Abs Immat Gran (auto) 0.03 Absolute Neuts (auto) 6.6 Absolute Nucleated RBC 0.000 Nucleated RBC % (auto) 0.0 PT INR Anion Gap 13 Estim Creat Clear Calc 81.9 Estimated GFR > 60 Random Glucose 170 H Lactic Acid Calcium 9.2 D Total Bilirubin 0.9 Direct Bilirubin 0.4 AST 17 ALT 23 Alkaline Phosphatase 74 Total Protein 6.9 Albumin 4.1 Lipase 35 Stool Occult Blood COVID-19 (DENISE) Negative COVID-19 Clin Com See Note Blood Type Antibody Screen 03/12/22 03/12/22 03/12/22 09:57 12:16 12:21 MCV 91.1 MCH 30.1 MCHC 33.1 RDW 12.8 Plt Count 326 MPV 9.5 Immature Gran % (Auto) 0.5 H Neut % (Auto) 68.0 Lymph % (Auto) 22.2 [place] % (Auto) 8.6 Eos % (Auto) 0.1 Baso % (Auto) 0.6 Lymph # (Auto) 1.9 [place] # (Auto) 0.8 Eos # (Auto) 0.0 Baso # (Auto) 0.1 Abs Immat Gran (auto) 0.04 H Absolute Neuts (auto) 5.9 Absolute Nucleated RBC 0.000 Nucleated RBC % (auto) 0.0 PT INR Anion Gap Estim Creat Clear Calc Estimated GFR Random Glucose Lactic Acid Calcium Total Bilirubin Direct Bilirubin AST ALT Alkaline Phosphatase Total Protein Albumin Lipase Stool Occult Blood POSITIVE COVID-19 (DENISE) COVID-19 Clin Com Blood Type O Negative Antibody Screen NEGATIVE 03/12/22 03/12/22 03/12/22 12:21 12:21 16:26 MCV 91.1 MCH 31.0 MCHC 34.0 RDW 12.8 Plt Count 312 MPV 9.2 L Immature Gran % (Auto) 0.7 H Neut % (Auto) 65.6 Lymph % (Auto) 23.4 [place] % (Auto) 9.5 Eos % (Auto) 0.1 Baso % (Auto) 0.7 Lymph # (Auto) 2.0 [place] # (Auto) 0.8 Eos # (Auto) 0.0 Baso # (Auto) 0.1 Abs Immat Gran (auto) 0.06 H Absolute Neuts (auto) 5.7 Absolute Nucleated RBC 0.000 Nucleated RBC % (auto) 0.0 PT 13.3 H INR 1.2 H Anion Gap Estim Creat Clear Calc Estimated GFR Random Glucose Lactic Acid 1.0 Calcium Total Bilirubin Direct Bilirubin AST ALT Alkaline Phosphatase Total Protein Albumin Lipase Stool Occult Blood COVID-19 (DENISE) COVID-19 Clin Com Blood Type Antibody Screen Imaging Radiologist's Impressions: Impressions GI Bleed Scan Nuclear Medicine 03/12/22 16:00 IMPRESSION: No gastrointestinal hemorrhage is identified. This critical result was discussed with Tonia Olson NP at 4:47 PM on 03/12/2022 and it was ascertained that the content and urgency of the report was understood at the time of direct communication. Assessment and Plan (1) Bright red rectal bleeding: Status: Acute Plan This is a 76-year-old male with history of recurrent diverticulitis status post sigmoid colectomy in 2010, CAD, gerd who presents to the ED with rectal bleeding Acute GI bleeding Probable diverticular bleeding Negative nuclear bleeding scan Hemodynamically stable -keep NPO -follow q.6 hours CBC -seen by HENRY, jc appreciated -H/H thus far stable, transfuse prn CAD has been unable to tolerate BB asa on hold for GIB, will hold statin as well while NPO gerd continue dvt ppx - mechanical devices due to GIB attending - dr. kowalski HCP - Code status - Full code Given persistent rectal bleeding patient will likely require 2 midnight stay in the hospital for management of GI bleeding Quality Stroke Does the patient have a stroke diagnosis?: No VTE Prior VTE?: No VTE Risk Level:: Medical - moderate - high VTE Device Contraindication: N/A - Device Ordered VTE Drug Contraindication: Treatment Not Indicated
[2022-03-12] MEDS: Lactated Ringers 1,000 ML 100 ML IVCONT (18:14)
[2022-03-12 22:22] LABS: Hemoglobin 11.9 g/dl (14.0-18.0); Mean Corpuscular Hemoglobin 30.4 pg (27.0-33.0); Mean Corpuscular Volume 89.3 fL (80.0-98.0); Mean Platelet Volume 9.1 fL (9.4-12.4); Platelet Count 273 X10*3/uL (160-400); Red Blood Count 3.92 X10*6/uL (4.60-5.80); Red Cell Distribution Width 12.9 % (11.0-16.0); White Blood Count 8.6 X10*3/uL (4.8-10.8)
[2022-03-13] VITALS (7 sets, daily range): BP systolic 102–159; BP diastolic 64–76; PULSE 67–92; RESP 15–20; TEMP 36–36.6; O2SAT 95–99
--- NOTE | 2022-03-13 04:15 | CONS_ITS ---
DATE OF SERVICE: 03/12/2022 REASON FOR CONSULTATION: Lower GI bleeding. HISTORY OF PRESENT ILLNESS: The patient is a 76-year-old male with a known history of diverticular disease, as well as some underlying colitis, who was in his usual state of health up until yesterday. He describes having had a couple of loose brown stools during the day. He was otherwise feeling well. He was awakened in the middle of the night, which was at about 3 a.m. this morning with the sudden onset of hematochezia with bright red blood. This occurred several more times at home prompting his ER visit. During this time, he did have some cramping in association with the urge to have the bowel movement and bleeding, but no other abdominal pain. He did not have any associated nausea, nor vomiting. He did not notice any melena. In the ER, he did have 1 more episode of bleeding which he describes as somewhat darker in color. He remained hemodynamically stable and did not have any significant drop in the hemoglobin. At the time of this interview with him, he is actually having a nuclear medicine bleeding scan. He does take a daily aspirin and 1 Advil every other day. He does not smoke nor use any significant amount of alcohol. His most recent colonoscopy was in August 2019 that described some diverticulosis but with a normal sigmoid anastomosis other than some mild inflammation. Internal hemorrhoids were noted. There were no polyps at that time. MEDICATIONS: At home included aspirin 81 mg, atorvastatin, esomeprazole, and mesalamine 1.5 g daily. His medications here include only acetaminophen. He has not yet been admitted to the hospital and is still an ER patient. PAST MEDICAL HISTORY: Sigmoid resection for diverticulitis. Colon polyps. Colitis. Hepatic abscesses. Reflux. Hyperlipidemia. He denies any history of [place], diabetes, lung disease, stroke, nor kidney disease. Surgeries have included hernia, sigmoid resection, and appendectomy. SOCIAL HISTORY: He is . He does not smoke nor drink. FAMILY HISTORY: Noncontributory. REVIEW OF SYSTEMS: CONSTITUTIONAL: Prior to yesterday, he was feeling well with good energy and good appetite. SKIN: No rash. No pruritus. CARDIAC: No chest pain. PULMONARY: No cough and no hemoptysis. GI: As above. PHYSICAL EXAMINATION: GENERAL: The patient is presently laying on the nuclear medicine table, but appears very comfortable. SKIN: Warm and dry. Nonjaundiced. HEENT: Anicteric sclerae. NECK: Supple. ABDOMEN: Soft, nondistended, and nontender. LABORATORY DATA: The initial phase of the nuclear medicine bleeding scan in the first 15 minutes does not show any active sign of bleeding by my reading. His initial hemoglobin was 13.8 with a repeat of 13.5. Hemoglobin in November 2021 was 15.3. Platelets 326,000. PT 13.3 with INR 1.2. Normal electrolytes, BUN 24, creatinine 0.7. LFTs normal. Lipase 35. IMPRESSION: Given the patient's clinical history, this seems quite consistent with a lower GI bleed in relation to a diverticular source of bleeding. I do not think this represents a flare of his underlying colitis nor any other pathology such as neoplasm. At this point, things do seem to have spontaneously stabilized based on his description of less bleeding and just somewhat darker blood than when he was home. At this point, since he appears stable. I do not think any other intervention is required such as colonoscopy nor angiography. Given the colonoscopy done in 2019, as well as his previous exams, I do not think he requires a colonoscopy during this admission nor in general as long as he remains stable. Clearly if he begins having active bleeding, then he may need reassessment for interventional radiology angiography for treatment of the bleeding. In the meantime, I will continue supportive measures, follow his hemoglobin, and keep him n.p.o. for at least today. Obviously hold his aspirin and all NSAIDs. This has all been discussed in detail with the patient and he is comfortable with this plan. Thank you for the consultation. MD WILFRID Gustafson/QING / [id number] LETY
[2022-03-13 05:20] LABS: Hematocrit 34.3 % (42.0-52.0); Hemoglobin 11.6 g/dl (14.0-18.0); Mean Corpuscular HGB Conc 33.8 g/dl (31.0-36.0); Mean Corpuscular Hemoglobin 30.7 pg (27.0-33.0); Mean Corpuscular Volume 90.7 fL (80.0-98.0); Mean Platelet Volume 9.7 fL (9.4-12.4); Platelet Count 285 X10*3/uL (160-400); Red Blood Count 3.78 X10*6/uL (4.60-5.80); Red Cell Distribution Width 12.8 % (11.0-16.0); White Blood Count 7.6 X10*3/uL (4.8-10.8)
[2022-03-13 05:41] LABS: Anion Gap 14 (12-20); Blood Urea Nitrogen 21 mg/dL (9-16); Calcium 8.6 mg/dL (8.4-10.2); Carbon Dioxide 22 mmol/L (22-29); Chloride 105 mmol/L (96-108); Estimated Glomerular Filt Rate > 60; Glucose Random 126 mg/dL (60-115); Potassium 4.3 mmol/L (3.3-5.1); Sodium 137 mmol/L (135-145)
[2022-03-13] MEDS: Omeprazole 20 MG CAPSULE.DR PO (06:10)
[2022-03-13 09:05] LABS: Hematocrit 36.4 % (42.0-52.0); Hemoglobin 12.2 g/dl (14.0-18.0); Mean Corpuscular HGB Conc 33.5 g/dl (31.0-36.0); Mean Corpuscular Hemoglobin 30.8 pg (27.0-33.0); Mean Corpuscular Volume 91.9 fL (80.0-98.0); Mean Platelet Volume 9.8 fL (9.4-12.4); Platelet Count 331 X10*3/uL (160-400); Red Blood Count 3.96 X10*6/uL (4.60-5.80); Red Cell Distribution Width 12.9 % (11.0-16.0); White Blood Count 10.2 X10*3/uL (4.8-10.8)
[2022-03-13] MEDS: Acetaminophen 325 MG TABLET 650 MG PO (10:18)
[2022-03-13] MEDS: 0.9 % Sodium Chloride Flush 3 ML SYRINGE IVFLUSH (10:18)
[2022-03-13] MEDS: Lactated Ringers 1,000 ML 100 ML IVCONT ×3 (10:19→21:29)
--- NOTE | 2022-03-13 10:54 | MHC.CM.PN ---
IMM 03/13/22 Male 76 DX GIB. He lives with his with. He is independent with all functional mobility. VAXX status: Moderna x3 A copy of the pt's HCP has been requested. DP home no services. The patient's will provide transportation home.
--- NOTE | 2022-03-13 13:01 | HO.PM.IMPN ---
Subjective Subjective Date of Service: 03/13/22 Interval History: seen and examined this morning follow up for GI bleeding had episode of bleeding overnight around midnight and this am around 8 Still with intermittent crampy abdominal pain. No nausea, vomiting. No fever, chills. Denies dizziness Review of Systems Review of Systems: Yes all other systems are reviewed and are negative Constitutional Constitutional: Denies chills and Denies fever(s) ENT Ears, Nose, Mouth, and Throat: Denies dizziness Cardiovascular Cardiovascular: Denies chest pain, Denies palpitations and Denies dyspnea Respiratory Respiratory: Denies cough and Denies dyspnea Gastrointestinal Gastrointestinal: Reports abdominal pain, Reports hematochezia, Denies nausea and Denies vomiting Neurologic Neurologic: Denies dizziness Endocrine Endocrine: Denies palpitations Physical Exam Vital Signs: Vital Signs: Last Vital Signs Temp 97.1 F 03/13/22 11:31 Pulse 88 03/13/22 11:31 Resp 20 03/13/22 11:31 BP 108/68 03/13/22 11:31 Pulse Ox 96 03/13/22 11:31 O2 Del Method 03/13/22 11:31 BMI result Body Mass Index 25.0 Const: General: cooperative, comfortable, alert and awake Nutritional Appearance: average body habitus Orientation/consciousness: patient oriented x3 Resp: Effort & Inspection: normal respiratory effort and able to speak in complete sentences Cardio: Rate: regular rate Heart sounds: S1 normal heart sound present and S2 normal heart sound present GI: Inspection: No distended Palpation (GI): Soft to palpation and nontender Neuro: General: patient oriented x3 and CN's II-XI intact bilaterally Extrem: Other: Able to move all 4 extremities spontaneously General: Yes no pedal edema Objective Data Active Medications Acetaminophen (Acetaminophen 325 Mg Tablet) 650 mg PO Q6H PRN PRN Reason: Pain, Mild (Pain Scale 1-3) Last Admin: 03/13/22 10:18 Dose: 650 mg Documented By: RICHARD Lactated Ringer's (Lr) 1,000 mls @ 100 mls/hr IVCONT .Q10H IRASEMA Last Admin: 03/13/22 10:19 Dose: 100 mls/hr Documented By: RICHARD Melatonin (Melatonin 3 Mg Tablet) 3 mg PO BEDTIME PRN PRN Reason: Insomnia Morphine Sulfate (Morphine Sulfate 2 Mg/Ml Cartridge) 2 mg IVPUSH Q3H PRN; Protocol PRN Reason: Pain, Severe (Pain Scale 7-10) Non-Formulary Medication (Mesalamine) 1.5 gm PO DAILY [facility] Omeprazole (Omeprazole 20 Mg Capsule.Dr) 20 mg PO DAILY@0630 [facility] Last Admin: 03/13/22 06:10 Dose: 20 mg Documented By: JUAN C Ondansetron HCl (Ondansetron Hcl 4 Mg/2 Ml Vial) 4 mg IVPUSH Q8H PRN PRN Reason: Nausea and Vomiting Pharmacy Consult (Consult Rx Perform Med Rec) 1 each MISCELLANE ONCE PRN PRN Reason: Consult order Sodium Chloride (0.9 % Sodium Chloride Flush 3 Ml Syringe) 3 ml IVFLUSH QSHIFT [facility] Last Admin: 03/13/22 10:18 Dose: 3 ml Documented By: RICHARD Labs CBC & Chem 7: 03/13/22 08:56 03/13/22 04:45 Labs: Laboratory Results - last 24 hr 03/12/22 03/12/22 03/13/22 16:26 22:17 04:45 MCV 91.1 89.3 90.7 MCH 31.0 30.4 30.7 MCHC 34.0 34.0 33.8 RDW 12.8 12.9 12.8 Plt Count 312 273 285 MPV 9.2 L 9.1 L 9.7 Immature Gran % (Auto) 0.7 H Neut % (Auto) 65.6 Lymph % (Auto) 23.4 [place] % (Auto) 9.5 Eos % (Auto) 0.1 Baso % (Auto) 0.7 Lymph # (Auto) 2.0 [place] # (Auto) 0.8 Eos # (Auto) 0.0 Baso # (Auto) 0.1 Abs Immat Gran (auto) 0.06 H Absolute Neuts (auto) 5.7 Absolute Nucleated RBC 0.000 0.000 0.000 Nucleated RBC % (auto) 0.0 0.0 0.0 Anion Gap Estim Creat Clear Calc Estimated GFR Random Glucose Calcium 03/13/22 03/13/22 04:45 08:56 MCV 91.9 MCH 30.8 MCHC 33.5 RDW 12.9 Plt Count 331 MPV 9.8 Immature Gran % (Auto) Neut % (Auto) Lymph % (Auto) [place] % (Auto) Eos % (Auto) Baso % (Auto) Lymph # (Auto) [place] # (Auto) Eos # (Auto) Baso # (Auto) Abs Immat Gran (auto) Absolute Neuts (auto) Absolute Nucleated RBC 0.000 Nucleated RBC % (auto) 0.0 Anion Gap 14 Estim Creat Clear Calc 92.0 Estimated GFR > 60 Random Glucose 126 H Calcium 8.6 D Assessment and Plan (1) Bright red rectal bleeding: Status: Acute Plan This is a 76-year-old male with history of recurrent diverticulitis status post sigmoid colectomy in 2010, CAD, gerd who presents to the ED with rectal bleeding Acute GI bleeding. Small amount of bleeding Probable diverticular bleeding Negative nuclear bleeding scan Hemodynamically stable -keep NPO -follow CBC -seen by GI, recs appreciated -if persistent bleeding may require IR angiography Acute blood loss anemia r/t acute GIB slight dop in H/H overnight -follow CBC CAD has been unable to tolerate BB in past asa on hold for GIB, will hold statin as well while NPO gerd continue chronic colitis, not defined continue mesalamine not infectious dvt ppx - mechanical devices due to GIB attending - dr. Heredia HCP - Code status - Full code Requires ongoing inpatient hospitalization for close monitoring due to active GI bleeding Quality Stroke Does the patient have a stroke diagnosis?: No VTE Prior VTE?: No VTE Risk Level:: Medical - moderate - high VTE Device Contraindication: N/A - Device Ordered VTE Drug Contraindication: Treatment Not Indicated
--- NOTE | 2022-03-13 15:58 | PM.GIPN ---
Subjective Subjective Date of Service: 03/13/22 Interval History: streaks of old blood today cramping better Critical Care Time (minutes): 0 Physical Exam Vital Signs: Vital Signs: Last Vital Signs Temp 96.9 F 03/13/22 15:18 Pulse 86 03/13/22 15:18 Resp 18 03/13/22 15:18 BP 122/76 03/13/22 15:18 Pulse Ox 98 03/13/22 15:18 O2 Del Method 03/13/22 15:18 BMI result Body Mass Index 25.0 GI: Other: abdomen is soft and nontender Objective Data Labs CBC & Chem 7: 03/13/22 08:56 03/13/22 04:45 Procedures Date of Service Date of Service: 03/13/22 Progress Note: A&P Assessment and plan (1) Bright red rectal bleeding: Status: Acute Assessment and Plan: bleeding appears to have stopped start clear liquids, advance diet as [place] should be ok fir dc in am if stable Time Spent With Patient Time: Total time spent is greater than 50% in coordination of care (as documented) at patient's floor/unit and/or counseling patient: Quality Stroke Does the patient have a stroke diagnosis?: No VTE Prior VTE?: No VTE Risk Level:: Medical - moderate - high VTE Device Contraindication: N/A - Device Ordered VTE Drug Contraindication: Treatment Not Indicated
[2022-03-13 18:10] LABS: Hematocrit 33.6 % (42.0-52.0); Hemoglobin 11.3 g/dl (14.0-18.0); Mean Corpuscular HGB Conc 33.6 g/dl (31.0-36.0); Mean Corpuscular Hemoglobin 30.5 pg (27.0-33.0); Mean Corpuscular Volume 90.8 fL (80.0-98.0); Mean Platelet Volume 9.6 fL (9.4-12.4); Platelet Count 309 X10*3/uL (160-400); Red Cell Distribution Width 12.8 % (11.0-16.0); White Blood Count 10.1 X10*3/uL (4.8-10.8)
[2022-03-14 03:15] VITALS: BP 112/65; PULSE 78; RESP 15; TEMP 36.4; O2SAT 98
[2022-03-14] MEDS: Omeprazole 20 MG CAPSULE.DR PO (05:28)
[2022-03-14 06:30] LABS: Hematocrit 26.7 % (42.0-52.0); Mean Corpuscular HGB Conc 33.7 g/dl (31.0-36.0); Mean Corpuscular Hemoglobin 30.3 pg (27.0-33.0); Mean Corpuscular Volume 89.9 fL (80.0-98.0); Mean Platelet Volume 9.8 fL (9.4-12.4); Platelet Count 247 X10*3/uL (160-400); Red Blood Count 2.97 X10*6/uL (4.60-5.80); Red Cell Distribution Width 12.8 % (11.0-16.0)
[2022-03-14 07:40] VITALS: BP 109/71; PULSE 86; RESP 18; TEMP 36.1; O2SAT 98
[2022-03-14] MEDS: 0.9 % Sodium Chloride Flush 3 ML SYRINGE IVFLUSH (08:33)
--- NOTE | 2022-03-14 10:54 | HO.PM.IMPN ---
Subjective Subjective Date of Service: 03/14/22 Interval History: Seen and examined this morning Follow-up for GI bleeding Had rectal bleeding overnight until around 03:00. Abdominal pain has improved this morning. Review of Systems Review of Systems: Yes all other systems are reviewed and are negative Constitutional Constitutional: Denies chills and Denies fever(s) Cardiovascular Cardiovascular: Denies chest pain, Denies palpitations and Denies dyspnea Respiratory Respiratory: Denies dyspnea Gastrointestinal Gastrointestinal: Reports abdominal pain, Reports hematochezia, Denies nausea and Denies vomiting Endocrine Endocrine: Denies palpitations Physical Exam Vital Signs: Vital Signs: Last Vital Signs Temp 97.0 F 03/14/22 07:40 Pulse 86 03/14/22 07:40 Resp 18 03/14/22 07:40 BP 109/71 03/14/22 07:40 Pulse Ox 98 03/14/22 07:40 O2 Del Method 03/14/22 07:40 BMI result Body Mass Index 25.0 Const: General: cooperative, comfortable, alert and awake Nutritional Appearance: average body habitus Orientation/consciousness: patient oriented x3 Resp: Effort & Inspection: normal respiratory effort and able to speak in complete sentences Cardio: Rate: regular rate Heart sounds: S1 normal heart sound present and S2 normal heart sound present GI: Inspection: No distended Palpation (GI): Soft to palpation and nontender Neuro: General: patient oriented x3 and CN's II-XI intact bilaterally Extrem: Other: Able to move all 4 extremities spontaneously General: Yes no pedal edema Objective Data Active Medications Acetaminophen (Acetaminophen 325 Mg Tablet) 650 mg PO Q6H PRN PRN Reason: Pain, Mild (Pain Scale 1-3) Last Admin: 03/13/22 10:18 Dose: 650 mg Documented By: RICHARD Melatonin (Melatonin 3 Mg Tablet) 3 mg PO BEDTIME PRN PRN Reason: Insomnia Morphine Sulfate (Morphine Sulfate 2 Mg/Ml Cartridge) 2 mg IVPUSH Q3H PRN; Protocol PRN Reason: Pain, Severe (Pain Scale 7-10) Non-Formulary Medication (Mesalamine) 1.5 gm PO DAILY [facility] Omeprazole (Omeprazole 20 Mg Capsule.) 20 mg PO DAILY@0630 [facility] Last Admin: 03/14/22 05:28 Dose: 20 mg Documented By: BROCK Ondansetron HCl (Ondansetron Hcl 4 Mg/2 Ml Vial) 4 mg IVPUSH Q8H PRN PRN Reason: Nausea and Vomiting Pharmacy Consult (Consult Rx Perform Med Rec) 1 each MISCELLANE ONCE PRN PRN Reason: Consult order Sodium Chloride (0.9 % Sodium Chloride Flush 3 Ml Syringe) 3 ml IVFLUSH QSHIFT [facility] Last Admin: 03/14/22 08:33 Dose: 3 ml Documented By: CRISTOFER Labs CBC & Chem 7: 03/14/22 06:01 03/13/22 04:45 Labs: Laboratory Results - last 24 hr 03/13/22 03/14/22 18:03 06:01 MCV 90.8 89.9 MCH 30.5 30.3 MCHC 33.6 33.7 RDW 12.8 12.8 Plt Count 309 247 MPV 9.6 9.8 Absolute Nucleated RBC 0.000 0.000 Nucleated RBC % (auto) 0.0 0.0 Assessment and Plan (1) Bright red rectal bleeding: Status: Acute Plan This is a 76-year-old male with history of recurrent diverticulitis status post sigmoid colectomy in 2010, CAD, gerd who presents to the ED with rectal bleeding Acute GI bleeding. had more rectal bleeding overnight with drop in H/H today Probable diverticular bleeding Negative nuclear bleeding scan Hemodynamically stable -advanced to clear liquids -seen by GI, recs appreciated -follow CBC -if persistent bleeding may require IR angiography Acute blood loss anemia r/t acute GIB drop in H/H overnight, no indication from transfusion at this time; H/H has dropped from 13.5/40.8 on day of admission to 9.0/26.7 -follow CBC CAD has been unable to tolerate BB in past asa on hold for GIB, will hold statin as well until tolerating regular diet gerd continue chronic colitis, not defined continue mesalamine not infectious dvt ppx - mechanical devices due to GIB attending - dr. Mcmanus HCP - Code status - Full code Requires ongoing inpatient hospitalization for close monitoring due to active GI bleeding Quality Stroke Does the patient have a stroke diagnosis?: No VTE Prior VTE?: No VTE Risk Level:: Medical - moderate - high VTE Device Contraindication: N/A - Device Ordered VTE Drug Contraindication: Treatment Not Indicated
[2022-03-14] MEDS: Lactated Ringers 1,000 ML 100 ML IVCONT ×2 (11:05→23:29)
[2022-03-14 12:00] VITALS: BP 130/69; PULSE 77; RESP 18; TEMP 36.7; O2SAT 99
[2022-03-14 16:00] VITALS: BP 108/63; PULSE 80; RESP 18; TEMP 36.8; O2SAT 98
[2022-03-14 20:00] VITALS: BP 107/64; PULSE 80; RESP 20; TEMP 37.2; O2SAT 98
[2022-03-15] VITALS (13 sets, daily range): BP systolic 100–139; BP diastolic 50–75; PULSE 67–93; RESP 14–20; TEMP 36.3–37.2; O2SAT 97–100
[2022-03-15] MEDS: Omeprazole 20 MG CAPSULE.DR PO (06:02)
[2022-03-15] MEDS: Lactated Ringers 1,000 ML 100 ML IVCONT (08:56)
--- NOTE | 2022-03-15 10:13 | HO.PM.IMPN ---
Subjective Subjective Date of Service: 03/15/22 Interval History: Seen and examined this morning Follow-up for GI bleeding Had 2 epsisode dark maroon stool overnight, Abdominal pain has improved this morning. no dizziness Review of Systems dark stool no dizziness, no sob Physical Exam Vital Signs: Vital Signs: Last Vital Signs Temp 97.4 F 03/15/22 07:51 Pulse 93 03/15/22 07:51 Resp 18 03/15/22 07:51 BP 109/56 L 03/15/22 07:51 Pulse Ox 99 03/15/22 07:51 O2 Del Method 03/15/22 07:51 BMI result Body Mass Index 25.0 Const: General: cooperative, comfortable, alert and awake Nutritional Appearance: average body habitus Orientation/consciousness: patient oriented x3 Resp: Effort & Inspection: normal respiratory effort and able to speak in complete sentences Cardio: Rate: regular rate Heart sounds: S1 normal heart sound present and S2 normal heart sound present GI: Inspection: No distended Palpation (GI): Soft to palpation and nontender Neuro: General: patient oriented x3 and CN's II-XI intact bilaterally Extrem: Other: Able to move all 4 extremities spontaneously General: Yes no pedal edema Objective Data Active Medications Acetaminophen (Acetaminophen 325 Mg Tablet) 650 mg PO Q6H PRN PRN Reason: Pain, Mild (Pain Scale 1-3) Last Admin: 03/13/22 10:18 Dose: 650 mg Documented By: RICHARD Lactated Ringer's (Lr) 1,000 mls @ 100 mls/hr IVCONT .Q10H [facility] Last Admin: 03/15/22 08:56 Dose: 100 mls/hr Documented By: CRISTOFER Melatonin (Melatonin 3 Mg Tablet) 3 mg PO BEDTIME PRN PRN Reason: Insomnia Morphine Sulfate (Morphine Sulfate 2 Mg/Ml Cartridge) 2 mg IVPUSH Q3H PRN; Protocol PRN Reason: Pain, Severe (Pain Scale 7-10) Non-Formulary Medication (Mesalamine) 1.5 gm PO DAILY [facility] Omeprazole (Omeprazole 20 Mg Capsule.) 20 mg PO DAILY@0630 [facility] Last Admin: 03/15/22 06:02 Dose: 20 mg Documented By: PHYLLIS Ondansetron HCl (Ondansetron Hcl 4 Mg/2 Ml Vial) 4 mg IVPUSH Q8H PRN PRN Reason: Nausea and Vomiting Pharmacy Consult (Consult Rx Perform Med Rec) 1 each MISCELLANE ONCE PRN PRN Reason: Consult order Sodium Chloride (0.9 % Sodium Chloride Flush 3 Ml Syringe) 3 ml IVFLUSH QSHIFT [facility] Last Admin: 03/15/22 08:53 Dose: Not Given Documented By: CRISTOFER Non-Admin Reason: IV Running Labs CBC & Chem 7: 03/14/22 06:01 03/13/22 04:45 Assessment and Plan (1) Bright red rectal bleeding: Status: Acute Plan This is a 76-year-old male with history of recurrent diverticulitis status post sigmoid colectomy in 2010, CAD, gerd who presents to the ED with rectal bleeding Acute GI bleeding. had more rectal bleeding overnight, H/H pending this morning Probable diverticular bleeding but doesn't sound active right now Negative nuclear bleeding scan Hemodynamically stable -advanced to clear liquids -seen by GI, recs appreciated -follow CBC -if persistent bleeding may require IR angiography Acute blood loss anemia r/t acute GIB drop in H/H overnight, no indication from transfusion at this time; H/H has dropped from 13.5/40.8 on day of admission to 9.0/26.7 on 03/14, repeat pending -follow CBC CAD has been unable to tolerate BB in past asa on hold for GIB, will hold statin as well until tolerating regular diet gerd continue chronic colitis, not defined continue mesalamine not infectious dvt ppx - mechanical devices due to GIB attending - dr. Mcmanus HCP - Code status - Full code Requires ongoing inpatient hospitalization for close monitoring due to active GI bleeding, and frequent lab check if H/H stable, DC tomorrow Quality Stroke Does the patient have a stroke diagnosis?: No VTE Prior VTE?: No VTE Risk Level:: Medical - moderate - high VTE Device Contraindication: N/A - Device Ordered VTE Drug Contraindication: Treatment Not Indicated
[2022-03-15 10:21] LABS: Hematocrit 22.5 % (42.0-52.0); Hemoglobin 7.4 g/dl (14.0-18.0); Mean Corpuscular HGB Conc 32.9 g/dl (31.0-36.0); Mean Corpuscular Hemoglobin 30.2 pg (27.0-33.0); Mean Corpuscular Volume 91.8 fL (80.0-98.0); Mean Platelet Volume 9.5 fL (9.4-12.4); Platelet Count 293 X10*3/uL (160-400); Red Blood Count 2.45 X10*6/uL (4.60-5.80); Red Cell Distribution Width 13.2 % (11.0-16.0); White Blood Count 10.6 X10*3/uL (4.8-10.8)
--- NOTE | 2022-03-15 13:16 | PM.GIPN ---
Subjective Subjective Date of Service: 03/15/22 Interval History: Asked by Dr Moore to evaluate this patient due to LGI bleeding. Pt was admitted with LGI bleeding on 03/12/22. Pt was started on a regular diet evening of 03/13/22 No BM yesterday and passed 3 marroon/burgundy large BMs today containing some clots this morning. Pt notes some lower abdominal cramps which subside after he has a BM. He denies additional BMs since 10:00 am today. He has a hx of diverticular bleeding 2010 and had sigmoid colectomy (per pt 9 of colon was removed) He had a self limited episode of LGI bleeding in 2013 and none since. Last colonoscopy [place] [address] Loza and showed mild sigmoid diverticulosis. Anastomosis at 25 cms with focal ulcerations at anastomotic site. Critical Care Time (minutes): 26 Physical Exam Vital Signs: Vital Signs: Last Vital Signs Temp 97.6 F 03/15/22 12:59 Pulse 74 03/15/22 12:59 Resp 14 03/15/22 12:59 BP 113/65 03/15/22 12:59 Pulse Ox 100 03/15/22 12:45 O2 Del Method 03/15/22 12:45 BMI result Body Mass Index 25.0 Const: General: cooperative and no acute distress Nutritional Appearance: average body habitus Orientation/consciousness: patient oriented x3 Limitations: no limitations HEENT: Head: Yes normal to inspection Ears: hearing grossly normal bilaterally Eyes: Sclerae: sclerae normal Pupils: Equal, round and reactive pupils present Neck: Neck: Yes normal visual inspection Chest: Chest palpation & inspection: normal inspection of the chest Resp: Effort & Inspection: normal respiratory effort Auscultation: clear to auscultation bilaterally Cardio: Palpation: normal PMI Rate: regular rate Rhythm: regular rhythm Heart sounds: S1 normal heart sound present, S2 normal heart sound present and no murmurs GI: Palpation (GI): Soft to palpation, nontender and No hepatosplenomegaly present Auscultation: normal bowel sounds Rectal Exam - Male: Yes deferred Skin: General skin exam: no rashes or lesions noted Neuro: General: patient oriented x3 Cranial nerves: Yes Equal, round and reactive pupils present Psych: Appearance: grossly normal Mental Status: mental status grossly normal Objective Data Labs CBC & Chem 7: 03/18/22 06:43 03/13/22 04:45 Labs: Laboratory Results - last 24 hr 03/15/22 03/15/22 10:01 11:29 WBC 10.6 RBC 2.45 L Hgb 7.4 L Hct 22.5 L MCV 91.8 MCH 30.2 MCHC 32.9 RDW 13.2 Plt Count 293 MPV 9.5 Absolute Nucleated RBC 0.000 Nucleated RBC % (auto) 0.0 Blood Type O Negative Antibody Screen NEGATIVE Crossmatch See Detail Procedures Date of Service Date of Service: 03/15/22 Progress Note: A&P Assessment and plan (1) Bright red rectal bleeding: Status: Resolved (2) Diverticulosis of colon: Status: Acute Plan 76 YM admitted on 03/12/22 with LGI bleeding on 03/12/22. Pt passed 3 marroon/burgundy large BMs today containing some clots this morning and no additional BMs since 10:00 am today. Not orthostatic at present on physical exam. Last colonoscopy [place] [address] Loza and showed mild sigmoid diverticulosis. Anastomosis at 25 cms with focal ulcerations at anastomotic site RECOMMENDATIONS: 1. Agree with transfusion of 2 units of PRBC and check repeat H & H 2 hrs post transfusion. 2. Clear liquid diet with golytely prep today for COLON +/- EGD in the am 3. If pt has recurrent bleeding obtain urgent tagged red cell scan. If scan is positive for bleeding, pt can be transferred to [facility] for angiography with embolization. Pt and family are reluctant for angiography due to a hx of contrast allergy. Pt reports he developed generalized skin rash with some shortness of breath after coronary angiography despite pre-medication. Time Spent With Patient Time: Total time spent is greater than 50% in coordination of care (as documented) at patient's floor/unit and/or counseling patient: Quality Stroke Does the patient have a stroke diagnosis?: No VTE Prior VTE?: No VTE Risk Level:: Medical - moderate - high VTE Device Contraindication: N/A - Device Ordered VTE Drug Contraindication: Treatment Not Indicated
[2022-03-15 13:34] LABS: Hematocrit 22.4 % (42.0-52.0); Hemoglobin 7.5 g/dl (14.0-18.0); Mean Corpuscular HGB Conc 33.5 g/dl (31.0-36.0); Mean Corpuscular Hemoglobin 30.6 pg (27.0-33.0); Mean Corpuscular Volume 91.4 fL (80.0-98.0); Mean Platelet Volume 9.5 fL (9.4-12.4); Platelet Count 254 X10*3/uL (160-400); Red Blood Count 2.45 X10*6/uL (4.60-5.80); Red Cell Distribution Width 13.3 % (11.0-16.0); White Blood Count 9.8 X10*3/uL (4.8-10.8)
--- NOTE | 2022-03-15 13:57 | P.CONGS_ITS ---
History of Present Illness Consult details Consult date: 03/15/22 Narrative: 76-year-old male referred for rectal bleeding. He has a history of diverticular disease and had undergone sigmoid resection in 2010 for diverticulitis with a phlegmon at that time. He was admitted in 2013 because of rectal bleeding deemed to be diverticular in origin. He has had multiple multiple colonoscopies throughout the years. His last colonoscopy was in 2018 and at that time, he was noted to some sigmoid diverticulosis He had been in his usual state of health when he again started to pass bright blood per rectum periodically while he was on vacation in [place] last . They therefore came back home to the area and were admitted by the ER after calling his military technology specialist Dr. Loza. He had tumor episodes of bright blood per rectum on his 1st day of admission. This had on its own so he was restarted on diet yesterday. He says that the bathroom at around 03:00 o'clock this morning and again had an episode of bright blood per rectum. He had another episode around 09:00 o'clock this morning. He has had no further episodes since then. His hemoglobin was down to 7.4 this morning so he was started on blood transfusion. He currently says he feels well does not seem to be orthostatic. Review of Systems Constitutional: Constitutional: Denies chills and Denies fever(s) Cardiovascular: Cardiovascular: Denies chest pain, Denies dyspnea and Denies dyspnea on exertion Respiratory: Respiratory: Denies cough, Denies dyspnea and Denies dyspnea on exertion Gastrointestinal: Gastrointestinal: Reports hematochezia and Denies change in bowel habits Genitourinary: Genitourinary: Denies hematuria and Denies difficulty urinating Musculoskeletal: Musculoskeletal: Denies back pain and Denies limited range of motion Neurologic: Denies focal weakness and Denies convulsions Psychiatric: Psychiatric: Denies depression and Denies mood swings [facility] Past Medical History Medical History CAD (coronary artery disease) Colitis Diverticulitis GERD (gastroesophageal reflux disease) Hepatic abscess Hyperglycemia Hyperlipidemia PVC (premature ventricular contraction) RBBB Stable angina Functional capacity: independent ambulation Family History Family History Family/Other Prostate cancer CVD (cardiovascular disease) Father CVD (cardiovascular disease) Surgical History Surgical History H/O colectomy History of colonoscopy History of surgery on arm Hx of hernia repair Social History Social History Household Members: Spouse Housing: House Do you presently have visiting nurse or other home services: No Alcohol intake: current Alcohol intake frequency: holidays/special occasions only Patient Tobacco Use Status: Former Tobacco user Quit Date: Tobacco use type: Cigarette e-Cigarette/Vaping Use: Never Used Second Hand Smoke Exposure: No service: Yes Current occupational status: retired Cognitive needs: No Hearing needs: No Vision needs: No Meds Allergies Allergy/AdvReac Type Severity Reaction Status Date / Time amoxicillin [Augmentin] Allergy Severe ANAPHYLAXIS Verified 02/19/22 14:52 clavulanic acid Allergy Severe ANAPHYLAXIS Verified 02/19/22 14:52 [CLAVULANIC ACID] Penicillins [PENICILLINS] Allergy Severe ANAPHYLAXIS Verified 02/19/22 14:52 sulfamethoxazole Allergy Severe Rash Verified 02/19/22 14:52 [From Bactrim] trimethoprim [From Bactrim] Allergy Severe Rash Verified 02/19/22 14:52 metronidazole [From FLAGYL] Allergy Intermediate RASH,NAUSEA Verified 02/19/22 14:52 VOMITING ciprofloxacin [From CIPRO] Allergy Mild RASH Verified 02/19/22 14:52 Iodinated Contrast Media Allergy Unknown RASH Verified 02/19/22 14:52 [IV Dye, Iodine Containing] levofloxacin [From LEVAQUIN] Allergy Unknown RASH Verified 02/19/22 14:52 metoprolol Allergy Unknown rash Verified 02/19/22 14:52 piperacillin [Zosyn] Allergy Unknown UNK. Verified 02/19/22 14:52 Sulfa (Sulfonamide Allergy Unknown rash Verified 02/19/22 14:52 Antibiotics) tazobactam [Zosyn] Allergy Unknown UNK. Verified 02/19/22 14:52 Active Medications: Current Medications Acetaminophen (Acetaminophen 325 Mg Tablet) 650 mg PO Q6H PRN PRN Reason: Pain, Mild (Pain Scale 1-3) Last Admin: 03/13/22 10:18 Dose: 650 mg Lactated Ringer's (Lr) 1,000 mls @ 100 mls/hr IVCONT .Q10H [facility] Last Admin: 03/15/22 08:56 Dose: 100 mls/hr Melatonin (Melatonin 3 Mg Tablet) 3 mg PO BEDTIME PRN PRN Reason: Insomnia Morphine Sulfate (Morphine Sulfate 2 Mg/Ml Cartridge) 2 mg IVPUSH Q3H PRN; Protocol PRN Reason: Pain, Severe (Pain Scale 7-10) Non-Formulary Medication (Mesalamine) 1.5 gm PO DAILY [facility] Omeprazole (Omeprazole 20 Mg Capsule.) 20 mg PO DAILY@0630 [facility] Last Admin: 03/15/22 06:02 Dose: 20 mg Ondansetron HCl (Ondansetron Hcl 4 Mg/2 Ml Vial) 4 mg IVPUSH Q8H PRN PRN Reason: Nausea and Vomiting Pharmacy Consult (Consult Rx Perform Med Rec) 1 each MISCELLANE ONCE PRN PRN Reason: Consult order Sodium Chloride (0.9 % Sodium Chloride Flush 3 Ml Syringe) 3 ml IVFLUSH QSHIFT [facility] Last Admin: 03/15/22 08:53 Dose: Not Given Home Medications Medication Instructions Recorded Confirmed Last Taken Type aspirin 81 mg tablet,delayed 81 mg PO DAILY 04/29/20 03/12/22 03/11/22 History release esomeprazole magnesium 40 mg 40 mg PO DAILY 04/29/20 03/12/22 03/12/22 History capsule,delayed release mesalamine 0.375 gram 1.5 g PO DAILY 04/29/20 03/12/22 03/12/22 History capsule,extended release 24 hr Physical Exam Vital Signs: Vital Signs: Last Vital Signs Temp 97.9 F 03/15/22 13:16 Pulse 74 03/15/22 13:16 Resp 14 03/15/22 13:16 BP 117/69 03/15/22 13:16 Pulse Ox 100 03/15/22 12:45 O2 Del Method 03/15/22 12:45 BMI result Body Mass Index 25.0 Const: General: comfortable and no acute distress Orientation/consciousness: patient oriented x3 Neck: Neck: Yes no lymphadenopathy Resp: Auscultation: clear to auscultation bilaterally Cardio: Rhythm: regular rhythm GI: Palpation (GI): Soft to palpation, nontender and no guarding Neuro: General: patient oriented x3 Results Labs Result diagrams: 03/18/22 06:43 03/13/22 04:45 Labs: Abnormal lab results 03/15/22 03/15/22 03/15/22 Range/Units 10:01 11:29 13:26 RBC 2.45 L 2.45 L (4.60-5.80) X10*6/uL Hgb 7.4 L 7.5 L (14.0-18.0) g/dl Hct 22.5 L 22.4 L (42.0-52.0) % Crossmatch See Detail Short CBC 03/15/22 03/15/22 Range/Units 10:01 13:26 WBC 10.6 9.8 (4.8-10.8) X10*3/uL Hgb 7.4 L 7.5 L (14.0-18.0) g/dl Hct 22.5 L 22.4 L (42.0-52.0) % Plt Count 293 254 (160-400) X10*3/uL All other labs normal. Assessment and Plan (1) Bright red rectal bleeding: Status: Acute He has had periodic passage of bright blood per rectum. This likely diverticular in origin. He has been ordered to be transfused today because of a hemoglobin of 7.4 this morning. He has had no passage of rectum since around 09:00 o'clock this morning he states. I would keep him NPO for now. His hemoglobin should be followed closely. I had a long discussion with the family about management. I explained to them that standard of care would be to do an angiogram if he has significant bleeding again to localize source. Angiogram can also be therapeutic as the bleeding vessel embolized or plugged with a hemostatic agent/ coil to stop the bleeding. Otherwise, the other option would be to proceed with a subtotal colectomy with a likely ileostomyif he again bleeds actively without any localization of the source. The patient and the family of stated that the would like to avoid surgery as best as possible. In the meantime, he appears to be hemodynamically stable. His hemoglobin should be followed. The gastroenterology service is also following for possible repeat colonoscopy. Procedures Date of Service Date of Service: 03/15/22
[2022-03-15] MEDS: PEG 3350/Na Sulf,Bicarb,Cl/KCL 4,000 ML SOLN.RECON 4000 ML PO (16:36)
--- NOTE | 2022-03-15 17:00 | PC.NURSE ---
Pt received 2 units PRBC's 03/15/22 - confirmed with blood bank
--- NOTE | 2022-03-15 17:57 | PM.EVENT ---
Event Note Date of Service: 03/16/22 Event Note: seen on late afternoon rounds appears comfortable sitting on chair no further episodes of rectal bleeding stable VS followed by GI - colonoscopy planned for tomorrow bowel prep started
[2022-03-15] MEDS: 0.9 % Sodium Chloride Flush 3 ML SYRINGE IVFLUSH (23:18)
[2022-03-16] VITALS (11 sets, daily range): BP systolic 102–134; BP diastolic 58–69; PULSE 63–84; RESP 12–18; TEMP 36.3–36.8; O2SAT 96–99
[2022-03-16] MEDS: Omeprazole 20 MG CAPSULE.DR PO (05:26)
[2022-03-16] MEDS: 0.9 % Sodium Chloride Flush 3 ML SYRINGE IVFLUSH ×2 (07:34→20:17)
--- NOTE | 2022-03-16 07:59 | P.PNGS_ITS ---
Subjective Subjective Date of Service: 03/17/22 Interval history: feels well had bowel prep overnight - no bleeding Physical Exam Vital Signs: Vital Signs: Last Vital Signs Temp 97.8 F 03/16/22 03:17 Pulse 79 03/16/22 03:17 Resp 18 03/16/22 03:17 BP 114/65 03/16/22 03:17 Pulse Ox 98 03/16/22 03:17 O2 Del Method 03/16/22 03:17 BMI result Body Mass Index 25.0 Const: General: comfortable and no acute distress Resp: Effort & Inspection: normal respiratory effort Cardio: Rate: regular rate GI: Palpation (GI): Soft to palpation, not firm and nontender Objective Data Active Medications Acetaminophen (Acetaminophen 325 Mg Tablet) 650 mg PO Q6H PRN PRN Reason: Pain, Mild (Pain Scale 1-3) Last Admin: 03/13/22 10:18 Dose: 650 mg Documented By: RICHARD Lactated Ringer's (Lr) 1,000 mls @ 100 mls/hr IVCONT .Q10H [facility] Last Admin: 03/15/22 23:18 Dose: Not Given Documented By: PERRY Non-Admin Reason: on hold Melatonin (Melatonin 3 Mg Tablet) 3 mg PO BEDTIME PRN PRN Reason: Insomnia Morphine Sulfate (Morphine Sulfate 2 Mg/Ml Cartridge) 2 mg IVPUSH Q3H PRN; Protocol PRN Reason: Pain, Severe (Pain Scale 7-10) Non-Formulary Medication (Mesalamine) 1.5 gm PO DAILY [facility] Omeprazole (Omeprazole 20 Mg Capsule.Dr) 20 mg PO DAILY@0630 [facility] Last Admin: 03/16/22 05:26 Dose: 20 mg Documented By: PERRY Ondansetron HCl (Ondansetron Hcl 4 Mg/2 Ml Vial) 4 mg IVPUSH Q8H PRN PRN Reason: Nausea and Vomiting Pharmacy Consult (Consult Rx Perform Med Rec) 1 each MISCELLANE ONCE PRN PRN Reason: Consult order Sodium Chloride (0.9 % Sodium Chloride Flush 3 Ml Syringe) 3 ml IVFLUSH QSHIFT [facility] Last Admin: 03/16/22 07:34 Dose: 3 ml Documented By: JABARI Labs CBC & Chem 7: 03/17/22 05:39 03/13/22 04:45 Labs: Laboratory Results - last 24 hr 03/15/22 03/15/22 03/15/22 10:01 11:29 13:26 MCV 91.8 91.4 MCH 30.2 30.6 MCHC 32.9 33.5 RDW 13.2 13.3 Plt Count 293 254 MPV 9.5 9.5 Absolute Nucleated RBC 0.000 0.000 Nucleated RBC % (auto) 0.0 0.0 Blood Type O Negative Antibody Screen NEGATIVE Crossmatch See Detail Procedures Date of Service Date of Service: 03/17/22 Progress Note: A&P Assessment and plan (1) Bright red rectal bleeding: Status: Acute Assessment and Plan: no bleeding overnight looks well was transfused yesterday colonoscopy planned by GI today has been stable Time Spent With Patient Time: Total time spent is greater than 50% in coordination of care (as documented) at patient's floor/unit and/or counseling patient: Quality Stroke Does the patient have a stroke diagnosis?: No VTE Prior VTE?: No VTE Risk Level:: Medical - moderate - high VTE Device Contraindication: N/A - Device Ordered VTE Drug Contraindication: Treatment Not Indicated
[2022-03-16 08:10] LABS: MANUAL DIFF FLAG NO
[2022-03-16 08:13] LABS: Basophils Percent Auto 0.4 % (0-2); Hematocrit 23.2 % (42.0-52.0); Imm Gran Abs Auto 0.06 X10*3/uL (0.00-0.03); Imm Gran Pct Auto 0.9 % (0.0-0.4); Lymphocytes Absolute Auto 1.5 X10*3/uL (1.2-4.9); Lymphocytes Percent Auto 22.7 % (20-40); Mean Corpuscular HGB Conc 34.5 g/dl (31.0-36.0); Mean Corpuscular Hemoglobin 31.1 pg (27.0-33.0); Mean Corpuscular Volume 90.3 fL (80.0-98.0); Mean Platelet Volume 9.6 fL (9.4-12.4); Monocytes Absolute Auto 0.6 X10*3/uL (0.1-1.2); Monocytes Percent Auto 9.4 % (2-11); Neutrophils Absolute Auto 4.5 x10*3/uL (2.0-8.3); Neutrophils Percent Auto 66.6 % (45-73); Platelet Count 232 X10*3/uL (160-400); Red Blood Count 2.57 X10*6/uL (4.60-5.80); Red Cell Distribution Width 14.6 % (11.0-16.0); White Blood Count 6.8 X10*3/uL (4.8-10.8)
--- NOTE | 2022-03-16 09:39 | HO.PM.IMPN ---
Subjective Subjective Date of Service: 03/16/22 Interval History: [facility]Ac[facility] blood loss anemia Had episodes of bleeding yesterday with drop in H/H and was transfused 2 units overnight and had not had further bleeding since, and remains hemodynamically stable. Review of Systems no bloody bm overnight no dizziness, no sob Physical Exam Vital Signs: Vital Signs: Last Vital Signs Temp 97.7 F 03/16/22 07:57 Pulse 67 03/16/22 07:57 Resp 12 03/16/22 07:57 BP 118/58 L 03/16/22 07:57 Pulse Ox 97 03/16/22 07:57 O2 Del Method 03/16/22 07:57 BMI result Body Mass Index 25.0 Const: General: cooperative, comfortable, alert and awake Nutritional Appearance: average body habitus Orientation/consciousness: patient oriented x3 Resp: Effort & Inspection: normal respiratory effort and able to speak in complete sentences Cardio: Rate: regular rate Heart sounds: S1 normal heart sound present and S2 normal heart sound present GI: Inspection: No distended Palpation (GI): Soft to palpation and nontender Neuro: General: patient oriented x3 and CN's II-XI intact bilaterally Extrem: Other: Able to move all 4 extremities spontaneously General: Yes no pedal edema Objective Data Active Medications Acetaminophen (Acetaminophen 325 Mg Tablet) 650 mg PO Q6H PRN PRN Reason: Pain, Mild (Pain Scale 1-3) Last Admin: 03/13/22 10:18 Dose: 650 mg Documented By: RICHARD Lactated Ringer's (Lr) 1,000 mls @ 100 mls/hr IVCONT .Q10H COUNTS INCLUDE 234 BEDS AT THE [facility] Last Admin: 03/15/22 23:18 Dose: Not Given Documented By: PERRY Non-Admin Reason: on hold Melatonin (Melatonin 3 Mg Tablet) 3 mg PO BEDTIME PRN PRN Reason: Insomnia Morphine Sulfate (Morphine Sulfate 2 Mg/Ml Cartridge) 2 mg IVPUSH Q3H PRN; Protocol PRN Reason: Pain, Severe (Pain Scale 7-10) Non-Formulary Medication (Mesalamine) 1.5 gm PO DAILY COUNTS INCLUDE 234 BEDS AT THE [facility] Omeprazole (Omeprazole 20 Mg Capsule.Dr) 20 mg PO DAILY@0630 COUNTS INCLUDE 234 BEDS AT THE [facility] Last Admin: 03/16/22 05:26 Dose: 20 mg Documented By: HO.N-DRAKJ Ondansetron HCl (Ondansetron Hcl 4 Mg/2 Ml Vial) 4 mg IVPUSH Q8H PRN PRN Reason: Nausea and Vomiting Pharmacy Consult (Consult Rx Perform Med Rec) 1 each MISCELLANE ONCE PRN PRN Reason: Consult order Sodium Chloride (0.9 % Sodium Chloride Flush 3 Ml Syringe) 3 ml IVFLUSH QSHIFT COUNTS INCLUDE 234 BEDS AT THE [facility] Last Admin: 03/16/22 07:34 Dose: 3 ml Documented By: JABARI Labs CBC & Chem 7: 03/16/22 07:38 03/13/22 04:45 Labs: Laboratory Results - last 24 hr 03/15/22 03/15/22 03/15/22 10:01 11:29 13:26 MCV 91.8 91.4 MCH 30.2 30.6 MCHC 32.9 33.5 RDW 13.2 13.3 Plt Count 293 254 MPV 9.5 9.5 Immature Gran % (Auto) Neut % (Auto) Lymph % (Auto) [place] % (Auto) Eos % (Auto) Baso % (Auto) Lymph # (Auto) [place] # (Auto) Eos # (Auto) Baso # (Auto) Abs Immat Gran (auto) Absolute Neuts (auto) Absolute Nucleated RBC 0.000 0.000 Nucleated RBC % (auto) 0.0 0.0 Blood Type O Negative Antibody Screen NEGATIVE Crossmatch See Detail 03/16/22 07:38 MCV 90.3 MCH 31.1 MCHC 34.5 RDW 14.6 Plt Count 232 MPV 9.6 Immature Gran % (Auto) 0.9 H Neut % (Auto) 66.6 Lymph % (Auto) 22.7 [place] % (Auto) 9.4 Eos % (Auto) 0.0 Baso % (Auto) 0.4 Lymph # (Auto) 1.5 [place] # (Auto) 0.6 Eos # (Auto) 0.0 Baso # (Auto) 0.0 Abs Immat Gran (auto) 0.06 H Absolute Neuts (auto) 4.5 Absolute Nucleated RBC 0.000 Nucleated RBC % (auto) 0.0 Blood Type Antibody Screen Crossmatch Assessment and Plan (1) Diverticulosis of colon: Status: Acute (2) Bright red rectal bleeding: Status: Acute Plan This is a 76-year-old male with history of recurrent diverticulitis status post sigmoid colectomy in 2010, CAD, gerd who presents to the ED with rectal bleeding #Acute GI bleeding. #Acute blood loss anemia No further BM overnight Probable diverticular bleeding but doesn't sound active right now Negative nuclear bleeding scan -Hemodynamically stable -For colonoscopy today Hgb has dropped from 13.8 to 7.4 s/p 2 units of RBC on 03/15--> hgb 8 today -follow CBC -if persistent bleeding may require IR angiography (he is allergic to dye) #CAD has been unable to tolerate BB in past asa on hold for GIB, will hold statin as well until tolerating regular diet #Gerd continue #chronic colitis, not defined continue mesalamine not infectious dvt ppx - mechanical devices due to GIB attending - dr. Mcmanus HCP - Code status - Full code Requires ongoing inpatient hospitalization for close monitoring due to active GI bleeding, and frequent lab check and need for colonoscopy Quality Stroke Does the patient have a stroke diagnosis?: No VTE Prior VTE?: No VTE Risk Level:: Medical - moderate - high VTE Device Contraindication: N/A - Device Ordered VTE Drug Contraindication: Treatment Not Indicated
--- NOTE | 2022-03-16 11:38 | MHC.CM.PN ---
Per ROUNDS discussion, Patient is not yet medically cleared for dc (GIB/COLONOSCOPY TODAY); Home is the goal and CM will follow.
--- NOTE | 2022-03-16 13:30 | PC.NURSE ---
Pt to colonscop at this time via transport and stretcher.
--- NOTE | 2022-03-16 15:10 | HO.ANESPROP2 ---
[facility] Active Problems Active Problems: All Active Problems (Updated 03/15/22 @ 15:10 by Ovi Valencia MD) Diverticulosis of colon (Acute) Bright red rectal bleeding (Acute) PVC (premature ventricular contraction) (Acute) Preop exam for internal medicine (Acute) Adult general medical exam (Acute) Hyperglycemia (Acute) Hyperlipidemia (Acute) RBBB (Acute) Stable angina (Acute) CAD (coronary artery disease) (Acute) Diverticulitis (Acute) Past Medical History Medical History CAD (coronary artery disease) Colitis Diverticulitis GERD (gastroesophageal reflux disease) Hepatic abscess Hyperglycemia Hyperlipidemia PVC (premature ventricular contraction) RBBB Stable angina Functional capacity: independent ambulation Family History Family History Family/Other Prostate cancer CVD (cardiovascular disease) Father CVD (cardiovascular disease) Family history of problems with anesthesia: No Surgical History Surgical History H/O colectomy History of colonoscopy History of surgery on arm Hx of hernia repair History of Problems with Anesthesia: No Social History Social History Household Members: Spouse Housing: House Do you presently have visiting nurse or other home services: No Alcohol intake: current Alcohol intake frequency: holidays/special occasions only Patient Tobacco Use Status: Former Tobacco user Quit Date: Tobacco use type: Cigarette Smoked in Last 30 Days: No e-Cigarette/Vaping Use: Never Used Patient Interested in Nicotine Replacement: No Date Education Initiated: 03/13/22 Second Hand Smoke Exposure: No Use of substances other than those prescribed or required for medical reasons: No Currently Displaying Signs/Symptoms of Drug Intoxication Withdrawal: No Have you been hit, kicked, punched, or otherwise hurt by someone within the past year? If so, by whom?: No Do you feel safe in your current relationship?: Yes Is there a partner from a previous relationship who is making you feel unsafe now?: No Are you made to feel afraid or neglected: No Are you DNR?: No Advance Directives: No Advance Directives Information Provided: No Advance Directives on File: No Do you have thoughts of harming others: None Do you have a plan to hurt others: No Plan Recently lost weight without trying: No Eating poorly because of decreased appetite: No Nutrition Risks: No Nutritional Risk Poor oral hygiene: No service: Yes Current occupational status: retired Cognitive needs: No Hearing needs: No Vision needs: No Meds Allergies Allergy/AdvReac Type Severity Reaction Status Date / Time amoxicillin [Augmentin] Allergy Severe ANAPHYLAXIS Verified 02/19/22 14:52 clavulanic acid Allergy Severe ANAPHYLAXIS Verified 02/19/22 14:52 [CLAVULANIC ACID] Penicillins [PENICILLINS] Allergy Severe ANAPHYLAXIS Verified 02/19/22 14:52 sulfamethoxazole Allergy Severe Rash Verified 02/19/22 14:52 [From Bactrim] trimethoprim [From Bactrim] Allergy Severe Rash Verified 02/19/22 14:52 metronidazole [From FLAGYL] Allergy Intermediate RASH,NAUSEA Verified 02/19/22 14:52 VOMITING ciprofloxacin [From CIPRO] Allergy Mild RASH Verified 02/19/22 14:52 Iodinated Contrast Media Allergy Unknown RASH Verified 02/19/22 14:52 [IV Dye, Iodine Containing] levofloxacin [From LEVAQUIN] Allergy Unknown RASH Verified 02/19/22 14:52 metoprolol Allergy Unknown rash Verified 02/19/22 14:52 piperacillin [Zosyn] Allergy Unknown UNK. Verified 02/19/22 14:52 Sulfa (Sulfonamide Allergy Unknown rash Verified 02/19/22 14:52 Antibiotics) tazobactam [Zosyn] Allergy Unknown UNK. Verified 02/19/22 14:52 Active Medications: Current Medications Acetaminophen (Acetaminophen 325 Mg Tablet) 650 mg PO Q6H PRN PRN Reason: Pain, Mild (Pain Scale 1-3) Last Admin: 03/13/22 10:18 Dose: 650 mg Melatonin (Melatonin 3 Mg Tablet) 3 mg PO BEDTIME PRN PRN Reason: Insomnia Morphine Sulfate (Morphine Sulfate 2 Mg/Ml Cartridge) 2 mg IVPUSH Q3H PRN; Protocol PRN Reason: Pain, Severe (Pain Scale 7-10) Non-Formulary Medication (Mesalamine) 1.5 gm PO DAILY [facility] Omeprazole (Omeprazole 20 Mg Capsule.Dr) 20 mg PO DAILY@0630 [facility] Last Admin: 03/16/22 05:26 Dose: 20 mg Ondansetron HCl (Ondansetron Hcl 4 Mg/2 Ml Vial) 4 mg IVPUSH Q8H PRN PRN Reason: Nausea and Vomiting Pharmacy Consult (Consult Rx Perform Med Rec) 1 each MISCELLANE ONCE PRN PRN Reason: Consult order Sodium Chloride (0.9 % Sodium Chloride Flush 3 Ml Syringe) 3 ml IVFLUSH QSHIFT [facility] Last Admin: 03/16/22 07:34 Dose: 3 ml Home Medications Medication Instructions Recorded Confirmed Last Taken Type aspirin 81 mg tablet,delayed 81 mg PO DAILY 04/29/20 03/12/22 03/11/22 History release esomeprazole magnesium 40 mg 40 mg PO DAILY 04/29/20 03/12/22 03/12/22 History capsule,delayed release mesalamine 0.375 gram 1.5 g PO DAILY 04/29/20 03/12/22 03/12/22 History capsule,extended release 24 hr Exam Exam Date and Time: March 16, 2022 1510 Height,Weight and Vital Signs: Height 5 ft 8 in Weight 74.843 kg Last Vital Signs Temp 98.3 F 03/16/22 13:47 Pulse 63 03/16/22 13:47 Resp 16 03/16/22 13:47 BP 113/69 03/16/22 13:47 Pulse Ox 98 03/16/22 13:47 O2 Del Method 03/16/22 13:47 Pertinent Lab Results Pertinent Lab Results: Laboratory Tests 03/12/22 03/12/22 03/12/22 09:57 09:57 09:57 WBC 9.2 RBC 4.51 L Hgb 13.8 L Hct 40.8 L MCV 90.5 MCH 30.6 MCHC 33.8 RDW 12.8 Plt Count 319 MPV 9.2 L Immature Gran % (Auto) 0.3 Neut % (Auto) 71.8 Lymph % (Auto) 18.0 L [place] % (Auto) 9.3 Eos % (Auto) 0.1 Baso % (Auto) 0.5 Lymph # (Auto) 1.7 [place] # (Auto) 0.9 Eos # (Auto) 0.0 Baso # (Auto) 0.1 Abs Immat Gran (auto) 0.03 Absolute Neuts (auto) 6.6 Absolute Nucleated RBC 0.000 Nucleated RBC % (auto) 0.0 PT INR Sodium 137 Potassium 4.8 Chloride 103 Carbon Dioxide 26 Anion Gap 13 BUN 24 H Creatinine 0.73 Estim Creat Clear Calc 81.9 Estimated GFR > 60 Random Glucose 170 H Lactic Acid Calcium 9.2 D Total Bilirubin 0.9 Direct Bilirubin 0.4 AST 17 ALT 23 Alkaline Phosphatase 74 Troponin I High Sens 9.7 Total Protein 6.9 Albumin 4.1 Lipase 35 Stool Occult Blood COVID-19 (DENISE) COVID-19 Clin Com Blood Type Antibody Screen Crossmatch 03/12/22 03/12/22 03/12/22 09:57 09:57 12:16 WBC RBC Hgb Hct MCV MCH MCHC RDW Plt Count MPV Immature Gran % (Auto) Neut % (Auto) Lymph % (Auto) [place] % (Auto) Eos % (Auto) Baso % (Auto) Lymph # (Auto) [place] # (Auto) Eos # (Auto) Baso # (Auto) Abs Immat Gran (auto) Absolute Neuts (auto) Absolute Nucleated RBC Nucleated RBC % (auto) PT INR Sodium Potassium Chloride Carbon Dioxide Anion Gap BUN Creatinine Estim Creat Clear Calc Estimated GFR Random Glucose Lactic Acid Calcium Total Bilirubin Direct Bilirubin AST ALT Alkaline Phosphatase Troponin I High Sens Total Protein Albumin Lipase Stool Occult Blood POSITIVE COVID-19 (DENISE) Negative COVID-19 Clin Com See Note Blood Type O Negative Antibody Screen NEGATIVE Crossmatch 03/12/22 03/12/22 03/12/22 12:21 12:21 12:21 WBC 8.7 RBC 4.48 L Hgb 13.5 L Hct 40.8 L MCV 91.1 MCH 30.1 MCHC 33.1 RDW 12.8 Plt Count 326 MPV 9.5 Immature Gran % (Auto) 0.5 H Neut % (Auto) 68.0 Lymph % (Auto) 22.2 [place] % (Auto) 8.6 Eos % (Auto) 0.1 Baso % (Auto) 0.6 Lymph # (Auto) 1.9 [place] # (Auto) 0.8 Eos # (Auto) 0.0 Baso # (Auto) 0.1 Abs Immat Gran (auto) 0.04 H Absolute Neuts (auto) 5.9 Absolute Nucleated RBC 0.000 Nucleated RBC % (auto) 0.0 PT 13.3 H INR 1.2 H Sodium Potassium Chloride Carbon Dioxide Anion Gap BUN Creatinine Estim Creat Clear Calc Estimated GFR Random Glucose Lactic Acid 1.0 Calcium Total Bilirubin Direct Bilirubin AST ALT Alkaline Phosphatase Troponin I High Sens Total Protein Albumin Lipase Stool Occult Blood COVID-19 (DENISE) COVID-19 Clin Com Blood Type Antibody Screen Crossmatch 03/12/22 03/12/22 03/13/22 16:26 22:17 04:45 WBC 8.7 8.6 7.6 RBC 4.39 L 3.92 L 3.78 L Hgb 13.6 L 11.9 L 11.6 L Hct 40.0 L 35.0 L 34.3 L MCV 91.1 89.3 90.7 MCH 31.0 30.4 30.7 MCHC 34.0 34.0 33.8 RDW 12.8 12.9 12.8 Plt Count 312 273 285 MPV 9.2 L 9.1 L 9.7 Immature Gran % (Auto) 0.7 H Neut % (Auto) 65.6 Lymph % (Auto) 23.4 [place] % (Auto) 9.5 Eos % (Auto) 0.1 Baso % (Auto) 0.7 Lymph # (Auto) 2.0 [place] # (Auto) 0.8 Eos # (Auto) 0.0 Baso # (Auto) 0.1 Abs Immat Gran (auto) 0.06 H Absolute Neuts (auto) 5.7 Absolute Nucleated RBC 0.000 0.000 0.000 Nucleated RBC % (auto) 0.0 0.0 0.0 PT INR Sodium Potassium Chloride Carbon Dioxide Anion Gap BUN Creatinine Estim Creat Clear Calc Estimated GFR Random Glucose Lactic Acid Calcium Total Bilirubin Direct Bilirubin AST ALT Alkaline Phosphatase Troponin I High Sens Total Protein Albumin Lipase Stool Occult Blood COVID-19 (DENISE) COVID-19 Clin Com Blood Type Antibody Screen Crossmatch 03/13/22 03/13/22 03/13/22 04:45 08:56 18:03 WBC 10.2 10.1 RBC 3.96 L 3.70 L Hgb 12.2 L 11.3 L Hct 36.4 L 33.6 L MCV 91.9 90.8 MCH 30.8 30.5 MCHC 33.5 33.6 RDW 12.9 12.8 Plt Count 331 309 MPV 9.8 9.6 Immature Gran % (Auto) Neut % (Auto) Lymph % (Auto) [place] % (Auto) Eos % (Auto) Baso % (Auto) Lymph # (Auto) [place] # (Auto) Eos # (Auto) Baso # (Auto) Abs Immat Gran (auto) Absolute Neuts (auto) Absolute Nucleated RBC 0.000 0.000 Nucleated RBC % (auto) 0.0 0.0 PT INR Sodium 137 Potassium 4.3 Chloride 105 Carbon Dioxide 22 Anion Gap 14 BUN 21 H Creatinine 0.65 Estim Creat Clear Calc 92.0 Estimated GFR > 60 Random Glucose 126 H Lactic Acid Calcium 8.6 D Total Bilirubin Direct Bilirubin AST ALT Alkaline Phosphatase Troponin I High Sens Total Protein Albumin Lipase Stool Occult Blood COVID-19 (DENISE) COVID-19 Clin Com Blood Type Antibody Screen Crossmatch 03/14/22 03/15/22 03/15/22 06:01 10:01 11:29 WBC 10.0 10.6 RBC 2.97 L 2.45 L Hgb 9.0 L D 7.4 L Hct 26.7 L D 22.5 L MCV 89.9 91.8 MCH 30.3 30.2 MCHC 33.7 32.9 RDW 12.8 13.2 Plt Count 247 293 MPV 9.8 9.5 Immature Gran % (Auto) Neut % (Auto) Lymph % (Auto) [place] % (Auto) Eos % (Auto) Baso % (Auto) Lymph # (Auto) [place] # (Auto) Eos # (Auto) Baso # (Auto) Abs Immat Gran (auto) Absolute Neuts (auto) Absolute Nucleated RBC 0.000 0.000 Nucleated RBC % (auto) 0.0 0.0 PT INR Sodium Potassium Chloride Carbon Dioxide Anion Gap BUN Creatinine Estim Creat Clear Calc Estimated GFR Random Glucose Lactic Acid Calcium Total Bilirubin Direct Bilirubin AST ALT Alkaline Phosphatase Troponin I High Sens Total Protein Albumin Lipase Stool Occult Blood COVID-19 (DENISE) COVID-19 Clin Com Blood Type O Negative Antibody Screen NEGATIVE Crossmatch See Detail 03/15/22 03/16/22 13:26 07:38 WBC 9.8 6.8 RBC 2.45 L 2.57 L Hgb 7.5 L 8.0 L Hct 22.4 L 23.2 L MCV 91.4 90.3 MCH 30.6 31.1 MCHC 33.5 34.5 RDW 13.3 14.6 Plt Count 254 232 MPV 9.5 9.6 Immature Gran % (Auto) 0.9 H Neut % (Auto) 66.6 Lymph % (Auto) 22.7 [place] % (Auto) 9.4 Eos % (Auto) 0.0 Baso % (Auto) 0.4 Lymph # (Auto) 1.5 [place] # (Auto) 0.6 Eos # (Auto) 0.0 Baso # (Auto) 0.0 Abs Immat Gran (auto) 0.06 H Absolute Neuts (auto) 4.5 Absolute Nucleated RBC 0.000 0.000 Nucleated RBC % (auto) 0.0 0.0 PT INR Sodium Potassium Chloride Carbon Dioxide Anion Gap BUN Creatinine Estim Creat Clear Calc Estimated GFR Random Glucose Lactic Acid Calcium Total Bilirubin Direct Bilirubin AST ALT Alkaline Phosphatase Troponin I High Sens Total Protein Albumin Lipase Stool Occult Blood COVID-19 (DENISE) COVID-19 Clin Com Blood Type Antibody Screen Crossmatch Airway Mallampati Class: II TM Dist: >3cm Neck ROM: Full Assessment and Plan Assessment Anesthesia Assessment: Anesthesia Plan Discussed and Chart Reviewed Final Anesthetic Review Family History of Problems with Anesthesia: No History of Problems with Anesthesia: No NPO: Yes ASA Class: III Final Preanesthetic Review: Meds/Allgs Chart Reviewed, Consent Obtained/Reviewed and Anes Risks/Benef Reviewed Patient Risk: Intermediate Procedure Risk: Low Anesthetic Plan Anesthetic Plan: MAC: Disposition: Standard PACU
--- NOTE | 2022-03-16 16:18 | PM.EVENT ---
Event Note Date of Service: 03/16/22 Event Note: GI EGD: no bleeding, benign gastric polyps Colon:anastomotic stricuture at 25cm dilated to 15mm and bx'd. no active bleeding, old blood in L colon and sigmoid near diverticuli. Rec: recheck h/h tonight, give 1 more unit if necessary advance diet d/c in next 24 hrs if h/h stable. no nsaids or asa
[2022-03-16 17:15] LABS: Hemoglobin 8.1 g/dl (14.0-18.0)
[2022-03-16] MEDS: Acetaminophen 325 MG TABLET 650 MG PO (17:44)
[2022-03-17] VITALS (11 sets, daily range): BP systolic 100–126; BP diastolic 51–70; PULSE 65–85; RESP 16–20; TEMP 36.4–36.8; O2SAT 96–98
--- NOTE | 2022-03-17 00:56 | OP_ITS ---
SURGEON: Shantanu Loza MD INDICATIONS: GI bleeding. PREOPERATIVE DIAGNOSIS: POSTOPERATIVE DIAGNOSIS: PROCEDURE PERFORMED: Upper endoscopy, colonoscopy to the terminal ileum with balloon dilation and biopsy. ESTIMATED BLOOD LOSS: COMPLICATIONS: ANESTHESIA: Monitored anesthesia care. ASSISTANTS: SPECIMENS: DESCRIPTION OF PROCEDURE: History and physical performed the risks and benefits of the procedure were explained to the patient. Informed consent was obtained. The patient was placed in the left lateral decubitus position. The Olympus video gastroscope was introduced into the esophagus, stomach, and duodenum. Examination was performed. The scope was removed. He was repositioned for colonoscopy. Digital rectal exam was performed and was found to be normal. The Olympus video colonoscope was introduced into the rectum and advanced to the cecum. The cecum was identified by transillumination, palpation, and identification of the ileocecal valve examination was performed. The scope was removed. He tolerated the procedure well and was taken to recovery area in stable condition. The procedure was done on 03/16/2022. FINDINGS: Upper endoscopy: 1. Esophagus: The esophagus was normal. 2. Stomach: The stomach showed some fundic gland polyps in the fundus of the stomach. There was no ulceration and no bleeding. 3. Duodenum: The bulb and second portion were normal. Colonoscopy: There was old blood in the left colon with no active bleeding site identified. There was an anastomotic stricture with some inflammatory change at 25 cm, which did not permit passage of the colonoscope. This was dilated from 10 to 15 mm sequentially with dilating balloon passed through the scope and inflated to the recommended pressure for 60 seconds incrementally each time. The scope easily passed through the stricture at the dilation. There was more old blood above the stricture with some diverticulosis. No active bleeding site was identified in any of the diverticula. Biopsies were obtained from the anastomotic stricture. The remainder of the colon showed some liquid stool in the transverse and right colon that was nonbloody, suggesting that the source of bleeding was in the descending colon or sigmoid. The terminal ileum was entirely within normal limits. Retroflexed examination was normal. IMPRESSION: 1. Gastric polyps. 2. Anastomotic stricture. 3. Diverticulosis. RECOMMENDATION: Follow up the biopsy results. Screening colonoscopy is not recommended based on the patient's age. MD BULMARO Grigsby/QING / [phone]
[2022-03-17] MEDS: Omeprazole 20 MG CAPSULE.DR PO (06:11)
[2022-03-17 06:21] LABS: Hematocrit 23.4 % (42.0-52.0); Hemoglobin 7.7 g/dl (14.0-18.0); Mean Corpuscular HGB Conc 32.9 g/dl (31.0-36.0); Mean Corpuscular Hemoglobin 30.2 pg (27.0-33.0); Mean Corpuscular Volume 91.8 fL (80.0-98.0); Mean Platelet Volume 9.7 fL (9.4-12.4); Platelet Count 245 X10*3/uL (160-400); Red Blood Count 2.55 X10*6/uL (4.60-5.80); Red Cell Distribution Width 14.6 % (11.0-16.0); White Blood Count 6.3 X10*3/uL (4.8-10.8)
[2022-03-17] MEDS: 0.9 % Sodium Chloride Flush 3 ML SYRINGE IVFLUSH ×2 (08:43→15:46)
--- NOTE | 2022-03-17 08:47 | HO.POSTANES ---
Post Anesthesia Evaluation Post Anesthesia Evaluation Vital Signs: Vital Signs Temp Pulse Resp BP Pulse Ox O2 Del Method 03/17/22 08:00 97.9 F 69 20 110/65 97 Room Air 03/17/22 03:00 97.9 F 80 18 100/51 L 98 Room Air 03/17/22 00:02 100/56 L 03/16/22 23:42 98.0 F 84 18 134/66 96 Nasal Cannula 03/16/22 23:38 97.9 F 64 14 99 Room Air Anesthesia: Monitored Mental Status: Awake Pain Control: Satisfactory Nausea/Vomiting: None Hydration: Adequate Anesthesia-Related Issues: No Anes. Related Issues
[2022-03-17] MEDS: Acetaminophen 325 MG TABLET 650 MG PO ×2 (08:53→15:47)
--- NOTE | 2022-03-17 10:59 | P.PNIM_ITS ---
Subjective Subjective Date of Service: 03/17/22 Interval History: Seen and examined in for [facility] up for GIB/Acute blood loss anemia no bleeding overnight, H/H is lower and is being given blood Review of Systems no bloody bm overnight no dizziness, no sob Physical Exam Vital Signs: Vital Signs: Last Vital Signs Temp 97.9 F 03/17/22 09:53 Pulse 85 03/17/22 09:53 Resp 16 03/17/22 09:53 BP 112/61 03/17/22 09:53 Pulse Ox 97 03/17/22 08:00 O2 Del Method 03/17/22 08:00 BMI result Body Mass Index 25.0 Const: General: cooperative, comfortable, alert and awake Nutritional Appearance: average body habitus Orientation/consciousness: patient oriented x3 Resp: Effort & Inspection: normal respiratory effort and able to speak in complete sentences Cardio: Rate: regular rate Heart sounds: S1 normal heart sound present and S2 normal heart sound present GI: Inspection: No distended Palpation (GI): Soft to palpation and nontender Neuro: General: patient oriented x3 and CN's II-XI intact bilaterally Extrem: Other: Able to move all 4 extremities spontaneously General: Yes no pedal edema Objective Data Active Medications Acetaminophen (Acetaminophen 325 Mg Tablet) 650 mg PO Q6H PRN PRN Reason: Pain, Mild (Pain Scale 1-3) Last Admin: 03/17/22 08:53 Dose: 650 mg Documented By: JINNY Melatonin (Melatonin 3 Mg Tablet) 3 mg PO BEDTIME PRN PRN Reason: Insomnia Morphine Sulfate (Morphine Sulfate 2 Mg/Ml Cartridge) 2 mg IVPUSH Q3H PRN; Protocol PRN Reason: Pain, Severe (Pain Scale 7-10) Non-Formulary Medication (Mesalamine) 1.5 gm PO DAILY [facility] Omeprazole (Omeprazole 20 Mg Capsule.Dr) 20 mg PO DAILY@0630 [facility] Last Admin: 03/17/22 06:11 Dose: 20 mg Documented By: ZULMA Ondansetron HCl (Ondansetron Hcl 4 Mg/2 Ml Vial) 4 mg IVPUSH Q8H PRN PRN Reason: Nausea and Vomiting Pharmacy Consult (Consult Rx Perform Med Rec) 1 each MISCELLANE ONCE PRN PRN Reason: Consult order Sodium Chloride (0.9 % Sodium Chloride Flush 3 Ml Syringe) [facility] Last Admin: 03/17/22 08:43 Dose: 3 ml Documented By: JINNY Labs CBC & Chem 7: 03/17/22 05:39 03/13/22 04:45 Labs: Laboratory Results - last 24 hr 03/15/22 03/17/22 11:29 05:39 MCV 91.8 MCH 30.2 MCHC 32.9 RDW 14.6 Plt Count 245 MPV 9.7 Absolute Nucleated RBC 0.000 Nucleated RBC % (auto) 0.0 Blood Type O Negative Antibody Screen NEGATIVE Crossmatch See Detail Assessment and Plan (1) Diverticulosis of colon: Status: Acute (2) Bright red rectal bleeding: Status: Acute Plan This is a 76-year-old male with history of recurrent diverticulitis status post sigmoid colectomy in 2010, CAD, gerd who presents to the ED with rectal bleeding #Acute GI bleeding. #Acute blood loss anemia--initially was observed. However given peristent ongoing bleeding, he had a bleeding scan on 03/12 which turned out to be negative. His initial hemoglobin was 13.8 and dropped to 7.4 on 03/14 and was transfused 2 units. He was reevaluated by GI and subsequently underwent EGD and colonoscopy by Dr. Loza on 03/16 with the following finding. on bleeding, benign gastric polyps Colon:anastomotic stricuture at 25cm dilated to 15mm and bx'd. no active bleeding, old blood in L colon and sigmoid near diverticuli. Hemoglobin after EGD, colonoscopy is 7.7 and will be transfused 2 more units. There is no further bleeding and he is tolerating diet at this time. Will repeat H/H after tranasfusion. So in all transfused 4 units. Hold ASA for a week #CAD has been unable to tolerate BB in past asa on hold for GIB, will hold statin as well until tolerating regular diet #Gerd continue #chronic colitis, not defined continue mesalamine not infectious dvt ppx - mechanical devices due to GIB attending - dr. Mcmanus HCP - Code status - Full code Requires ongoing inpatient hospitalization for close monitoring due to active GI bleeding, and frequent lab check and need for colonoscopy Quality Stroke Does the patient have a stroke diagnosis?: No VTE Prior VTE?: No VTE Risk Level:: Medical - moderate - high VTE Device Contraindication: N/A - Device Ordered VTE Drug Contraindication: Treatment Not Indicated
--- NOTE | 2022-03-17 11:35 | PM.DS ---
DS: Providers Provider Date of Service: 03/17/22 Date of admission: 03/12/22 17:41 Primary care physician: Tawanda Yu MD Consults: 03/12/22 13:04 Consult to Gastroenterology Stat Consulting Provider: Shantanu Loza Reason for consultation: GIB 03/15/22 12:20 Consult to General Surgery Routine Consulting Provider: Gamal Priest Reason for consultation: GI bleeding, anemia Has provider been notified: No DS: Diagnosis Discharge Diagnosis (1) Diverticulosis of colon: Status: Acute (2) Bright red rectal bleeding: Status: Acute DS: Summary Hospital Course Hospital Course: #Acute GI bleeding. #Acute blood loss anemia--initially was observed. However given peristent ongoing bleeding, he had a bleeding scan on 03/12 which turned out to be negative. His initial hemoglobin was 13.8 and dropped to 7.4 on 03/14 and was transfused 2 units. He was reevaluated by GI? and subsequently underwent EGD and colonoscopy by Dr. Loza on 03/16 with the following finding. on bleeding, benign gastric polyps Colon:anastomotic stricuture at 25cm dilated to 15mm and bx'd. no active bleeding, old blood in L colon and sigmoid near diverticuli.? Hemoglobin after EGD, colonoscopy is 7.7 and will be transfused 2 more units. There is no further bleeding and he is tolerating diet at this time. Will repeat H/H after tranasfusion. So in all transfused 4 units. Hold ASA for a week #CAD has been unable to tolerate BB in past asa on hold for GIB, will hold statin as well until tolerating regular diet #Gerd continue #chronic colitis, not defined continue mesalamine not infectious dvt ppx - mechanical devices due to GIB attending - dr. Mcmanus HCP - Code status - Full code Requires ongoing inpatient hospitalization for close monitoring due to active GI bleeding, and frequent lab check? and need for colonoscopy Time Spent with Patient Time attestation: Total time spent providing and/or coordinating discharge services: Discharge coordination time: Greater than 30 minutes Quality: Safe Use of Opioids Does Pt have an Active Cancer Diagnosis on the Problem List?: No Quality: Stroke Does the patient have a stroke diagnosis?: No Physical Exam Vital Signs: Vital Signs: Last Vital Signs Temp 97.9 F 03/17/22 09:53 Pulse 85 03/17/22 09:53 Resp 16 03/17/22 09:53 BP 112/61 03/17/22 09:53 Pulse Ox 97 03/17/22 08:00 O2 Del Method 03/17/22 08:00 BMI result Body Mass Index 25.0 DS: Data Data Completed and Pending Pending studies at discharge: Pending at discharge 03/16/22 15:38 Surgical [PTH] Routine Labs on day of discharge: Laboratory Results - last 24 hr 03/15/22 03/16/22 03/17/22 11:29 17:07 05:39 WBC 6.3 RBC 2.55 L Hgb 8.1 L 7.7 L Hct 24.0 L 23.4 L MCV 91.8 MCH 30.2 MCHC 32.9 RDW 14.6 Plt Count 245 MPV 9.7 Absolute Nucleated RBC 0.000 Nucleated RBC % (auto) 0.0 Blood Type O Negative Antibody Screen NEGATIVE Crossmatch See Detail Discharge Plan Discharge Anticipated Discharge Date/Time: 03/17/22 11:26 Patient Disposition: Home, Self-Care Discharge Diagnosis: Acute blood loss anemia, Rectal bleeding Referrals: Tawanda Yu MD [Primary Care Provider] - 1 Week Discharge Medications: Continued atorvastatin 40 mg tablet 40 mg PO DAILY Qty: 90 3RF mesalamine 0.375 gram capsule,extended release 24hr 1.5 g PO DAILY esomeprazole magnesium 40 mg capsule,delayed release(DR/EC) 40 mg PO DAILY Held aspirin 81 mg tablet,delayed release (DR/EC) 81 mg PO DAILY Hold Instructions: Resume on 03/24/22. Diet: Advance to usual diet Activity on Discharge: As tolerated Stand Alone Forms: Patient Portal Discharge page Care Plan Goals: Full recovery from GI bleeding, and anemia Health Concerns: GI bleeding, diverticulosis, anemia Plan of Treatment: if you notice a sings of bleeding, espcially with shortness of breath, dizziness call 911 Assessment: As above
--- NOTE | 2022-03-17 15:52 | P.PNGS_ITS ---
Subjective Subjective Date of Service: 03/17/22 Interval history: denies complaints denies recurrent bleeding colonoscopy done yesterday does not reveal bleeding Physical Exam Vital Signs: Vital Signs: Last Vital Signs Temp 97.6 F 03/17/22 15:45 Pulse 68 03/17/22 15:45 Resp 16 03/17/22 15:45 BP 111/67 03/17/22 15:45 Pulse Ox 97 03/17/22 15:34 O2 Del Method 03/17/22 15:34 BMI result Body Mass Index 25.0 Const: General: comfortable and no acute distress Resp: Effort & Inspection: normal respiratory effort Cardio: Rate: regular rate GI: Palpation (GI): Soft to palpation and not firm Objective Data Active Medications Acetaminophen (Acetaminophen 325 Mg Tablet) 650 mg PO Q6H PRN PRN Reason: Pain, Mild (Pain Scale 1-3) Last Admin: 03/17/22 15:47 Dose: 650 mg Documented By: JABARI Melatonin (Melatonin 3 Mg Tablet) 3 mg PO BEDTIME PRN PRN Reason: Insomnia Morphine Sulfate (Morphine Sulfate 2 Mg/Ml Cartridge) 2 mg IVPUSH Q3H PRN; Protocol PRN Reason: Pain, Severe (Pain Scale 7-10) Non-Formulary Medication (Mesalamine) 1.5 gm PO DAILY [facility] Omeprazole (Omeprazole 20 Mg Capsule.Dr) 20 mg PO DAILY@0630 [facility] Last Admin: 03/17/22 06:11 Dose: 20 mg Documented By: ZULMA Ondansetron HCl (Ondansetron Hcl 4 Mg/2 Ml Vial) 4 mg IVPUSH Q8H PRN PRN Reason: Nausea and Vomiting Pharmacy Consult (Consult Rx Perform Med Rec) 1 each MISCELLANE ONCE PRN PRN Reason: Consult order Sodium Chloride (0.9 % Sodium Chloride Flush 3 Ml Syringe) 3 ml IVFLUSH QSHIFT [facility] Last Admin: 03/17/22 15:46 Dose: 3 ml Documented By: JABARI Labs CBC & Chem 7: 03/17/22 05:39 03/13/22 04:45 Labs: Laboratory Results - last 24 hr 03/15/22 03/17/22 11:29 05:39 MCV 91.8 MCH 30.2 MCHC 32.9 RDW 14.6 Plt Count 245 MPV 9.7 Absolute Nucleated RBC 0.000 Nucleated RBC % (auto) 0.0 Blood Type O Negative Antibody Screen NEGATIVE Crossmatch See Detail Procedures Date of Service Date of Service: 03/17/22 Progress Note: A&P Assessment and plan (1) Bright red rectal bleeding: Status: Acute Assessment and Plan: has had no bleeding times more than 48 hours colonoscopy done yesterday does not show any bleeding hemoglobin was still low so it was transfused again today bleeding likely diverticular in origin explained to patient and family that this may be recurrent possible DC home tomorrow Time Spent With Patient Time: Total time spent is greater than 50% in coordination of care (as documented) at patient's floor/unit and/or counseling patient: Quality Stroke Does the patient have a stroke diagnosis?: No VTE Prior VTE?: No VTE Risk Level:: Medical - moderate - high VTE Device Contraindication: N/A - Device Ordered VTE Drug Contraindication: Treatment Not Indicated
--- NOTE | 2022-03-17 16:30 | PM.GIPN ---
Subjective Subjective Date of Service: 03/17/22 Interval History: bm this am without blood. no abd pain Critical Care Time (minutes): 0 Physical Exam Vital Signs: Vital Signs: Last Vital Signs Temp 97.6 F 03/17/22 15:45 Pulse 68 03/17/22 15:45 Resp 16 03/17/22 15:45 BP 111/67 03/17/22 15:45 Pulse Ox 97 03/17/22 15:34 O2 Del Method 03/17/22 15:34 BMI result Body Mass Index 25.0 GI: Other: abdomen is soft and nontender Objective Data Labs CBC & Chem 7: 03/17/22 05:39 03/13/22 04:45 Procedures Date of Service Date of Service: 03/17/22 Progress Note: A&P Assessment and plan (1) Bright red rectal bleeding: Status: Acute Assessment and Plan: s/p 2U prbc's today. tolerating diet without bleeding repeat hematocrit pending. Time Spent With Patient Time: Total time spent is greater than 50% in coordination of care (as documented) at patient's floor/unit and/or counseling patient: Quality Stroke Does the patient have a stroke diagnosis?: No VTE Prior VTE?: No VTE Risk Level:: Medical - moderate - high VTE Device Contraindication: N/A - Device Ordered VTE Drug Contraindication: Treatment Not Indicated
[2022-03-17 20:38] LABS: Hematocrit 30.2 % (42.0-52.0); Hemoglobin 10.3 g/dl (14.0-18.0); Mean Corpuscular HGB Conc 34.1 g/dl (31.0-36.0); Mean Corpuscular Hemoglobin 31.1 pg (27.0-33.0); Mean Corpuscular Volume 91.2 fL (80.0-98.0); Mean Platelet Volume 9.1 fL (9.4-12.4); Platelet Count 262 X10*3/uL (160-400); Red Blood Count 3.31 X10*6/uL (4.60-5.80); White Blood Count 7.8 X10*3/uL (4.8-10.8)
[2022-03-18] VITALS: BP 103/56; PULSE 58; RESP 16; TEMP 36.9; O2SAT 97
[2022-03-18] MEDS: 0.9 % Sodium Chloride Flush 3 ML SYRINGE IVFLUSH (03:28)
[2022-03-18 04:00] VITALS: BP 111/64; PULSE 57; RESP 16; TEMP 36.9; O2SAT 95
[2022-03-18] MEDS: Omeprazole 20 MG CAPSULE.DR PO (07:05)
[2022-03-18 07:19] LABS: Hemoglobin 10.5 g/dl (14.0-18.0); Mean Corpuscular HGB Conc 33.9 g/dl (31.0-36.0); Mean Corpuscular Hemoglobin 30.5 pg (27.0-33.0); Mean Corpuscular Volume 90.1 fL (80.0-98.0); Mean Platelet Volume 9.2 fL (9.4-12.4); Platelet Count 281 X10*3/uL (160-400); Red Blood Count 3.44 X10*6/uL (4.60-5.80); Red Cell Distribution Width 15.3 % (11.0-16.0); White Blood Count 7.9 X10*3/uL (4.8-10.8)
[2022-03-18 07:34] VITALS: BP 105/69; PULSE 60; RESP 16; TEMP 36.7; O2SAT 99
--- NOTE | 2022-03-18 07:42 | PC.NURSE ---
Assumed care of patient at this time
--- NOTE | 2022-03-18 08:28 | MHC.CM.PN ---
IMM 03/18/22 Male 76 DX GIB is discharged to home today with family support and transportation.
== END 2022-03-18 10:25 | disposition home or self-care (01) | DRG 378 ==
LOC: HO.ED 17:01 → HO.EDOVER 18:08 → HO.IMC 03-13 07:12
PROVIDERS: Internal Medicine; Internal Medicine Gastroenterology; Nurse Practitioner Family; Admitting Provider Physician Assistant Medical; Emergency Provider Emergency Medicine; PCP Internal Medicine; Visit Provider Internal Medicine
PROC: 0DJ08ZZ Inspection of Upper Intestinal Tract, Via Natural or Artificial Opening Endoscopic (ICD-10-PCS; principal; 2022-03-16 14:00)
DX: K57.33 Diverticulitis of large intestine without perforation or abscess with bleeding (principal); D62 Acute posthemorrhagic anemia; K91.30 Postprocedural intestinal obstruction, unspecified as to partial versus complete; I25.118 Atherosclerotic heart disease of native coronary artery with other forms of angina pectoris; K21.9 Gastro-esophageal reflux disease without esophagitis; K31.7 Polyp of stomach and duodenum; Z20.822 Contact with and (suspected) exposure to COVID-19; Z87.891 Personal history of nicotine dependence; Z91.041 Radiographic dye allergy status; Z88.0 Allergy status to penicillin; Z88.2 Allergy status to sulfonamides; Z88.1 Allergy status to other antibiotic agents; Z88.8 Allergy status to other drugs, medicaments and biological substances; Z79.82 Long term (current) use of aspirin; Z79.899 Other long term (current) drug therapy
CPT/HCPCS: 36415; 78278; 80048; 80076; 82272; 83605; 83690; 84484; 85014; 85018; 85025; 85027; 85610; 86850; 86900; 86901; 86923; 87635; 88305; 93005; 99285; A9560; C1726; P9016

== ENCOUNTER 2022-03-20 14:54 | Outpatient (REF) | payer MEDICARE, SELFPAY ==
[2022-03-20 15:26] LABS: MANUAL DIFF FLAG NO
[2022-03-20 15:30] LABS: Basophils Percent Auto 0.4 % (0-2); Eosinophils Percent Auto 0.1 % (0-4); Hematocrit 34.6 % (42.0-52.0); Hemoglobin 11.4 g/dl (14.0-18.0); Imm Gran Abs Auto 0.06 X10*3/uL (0.00-0.03); Imm Gran Pct Auto 0.8 % (0.0-0.4); Lymphocytes Absolute Auto 1.6 X10*3/uL (1.2-4.9); Lymphocytes Percent Auto 20.1 % (20-40); Mean Corpuscular HGB Conc 32.9 g/dl (31.0-36.0); Mean Corpuscular Hemoglobin 30.4 pg (27.0-33.0); Mean Corpuscular Volume 92.3 fL (80.0-98.0); Mean Platelet Volume 8.7 fL (9.4-12.4); Monocytes Absolute Auto 0.7 X10*3/uL (0.1-1.2); Monocytes Percent Auto 8.7 % (2-11); Neutrophils Absolute Auto 5.5 x10*3/uL (2.0-8.3); Neutrophils Percent Auto 69.9 % (45-73); Platelet Count 306 X10*3/uL (160-400); Red Blood Count 3.75 X10*6/uL (4.60-5.80); Red Cell Distribution Width 14.5 % (11.0-16.0); White Blood Count 7.9 X10*3/uL (4.8-10.8)
[2022-03-20 15:40] LABS: Estimated Average Glucose 126 mg/dL
[2022-03-20 15:56] LABS: Anion Gap 15 (12-20); Blood Urea Nitrogen 14 mg/dL (9-16); Calcium 8.7 mg/dL (8.4-10.2); Carbon Dioxide 23 mmol/L (22-29); Chloride 105 mmol/L (96-108); Estimated Glomerular Filt Rate > 60; Glucose Random 183 mg/dL (60-115); Potassium 4.3 mmol/L (3.3-5.1); Sodium 139 mmol/L (135-145)
== END 2022-03-20 14:55 | disposition home or self-care (01) ==
LOC: HO.LAB 14:54
PROVIDERS: PCP Internal Medicine; Visit Provider Internal Medicine
DX: Z13.0 Encounter for screening for diseases of the blood and blood-forming organs and certain disorders involving the immune mechanism (principal); R51.9 Headache, unspecified; E11.9 Type 2 diabetes mellitus without complications
CPT/HCPCS: 36415; 80048; 83036; 85025

== ENCOUNTER 2022-06-10 06:45 | Outpatient (REF) | payer MEDICARE, SELFPAY ==
[2022-06-10 07:37] LABS: Estimated Average Glucose 154 mg/dL
[2022-06-10 07:45] LABS: Cholesterol 110 mg/dL; Glucose Fasting 135 mg/dL (60-99); HDL Cholesterol 45 mg/dL; LDL Cholesterol Calculated 51 mg/dl; Triglycerides 70 mg/dL
== END 2022-06-10 06:46 | disposition home or self-care (01) ==
LOC: HO.LAB 06:45
PROVIDERS: PCP Internal Medicine; Visit Provider Internal Medicine
DX: E78.5 Hyperlipidemia, unspecified (principal); E11.65 Type 2 diabetes mellitus with hyperglycemia
CPT/HCPCS: 36415; 80061; 82947; 83036

== ENCOUNTER → 2022-08-27 09:05 | Outpatient (BNVA) | payer MEDICARE, SELFPAY | PROVIDERS: PCP Internal Medicine; Referring Provider Internal Medicine; Visit Provider Internal Medicine Cardiovascular Disease | DX: I49.3 Ventricular premature depolarization (principal); I45.10 Unspecified right bundle-branch block; I20.8 Other forms of angina pectoris; Z79.899 Other long term (current) drug therapy | CPT/HCPCS: 99212 ==

== ENCOUNTER 2022-12-15 09:54 | Outpatient (REF) | payer MEDICARE, SELFPAY ==
[2022-12-15 10:04] LABS: MANUAL DIFF FLAG NO
[2022-12-15 10:50] LABS: Basophils Absolute Auto 0.1 X10*3/uL (0.0-0.2); Hematocrit 40.2 % (42.0-52.0); Hemoglobin 12.6 g/dl (14.0-18.0); Imm Gran Abs Auto 0.02 X10*3/uL (0.00-0.03); Imm Gran Pct Auto 0.2 % (0.0-0.4); Lymphocytes Absolute Auto 2.1 X10*3/uL (1.2-4.9); Lymphocytes Percent Auto 24.7 % (20-40); Mean Corpuscular HGB Conc 31.3 g/dl (31.0-36.0); Mean Corpuscular Hemoglobin 25.3 pg (27.0-33.0); Mean Corpuscular Volume 80.7 fL (80.0-98.0); Mean Platelet Volume 10.2 fL (9.4-12.4); Monocytes Absolute Auto 0.9 X10*3/uL (0.1-1.2); Monocytes Percent Auto 10.7 % (2-11); Neutrophils Absolute Auto 5.3 x10*3/uL (2.0-8.3); Neutrophils Percent Auto 63.4 % (45-73); Platelet Count 349 X10*3/uL (160-400); Red Blood Count 4.98 X10*6/uL (4.60-5.80); Red Cell Distribution Width 17.1 % (11.0-16.0); White Blood Count 8.3 X10*3/uL (4.8-10.8)
[2022-12-15 11:32] LABS: Alanine Aminotransferase 22 U/L (0-40); Alkaline Phosphatase 71 U/L (39-117); Anion Gap 10 (12-20); Aspartate Amino Transferase 20 U/L (5-37); Blood Urea Nitrogen 19 mg/dL (9-16); Calcium 9.6 mg/dL (8.4-10.2); Carbon Dioxide 28 mmol/L (22-29); Chloride 105 mmol/L (96-108); Cholesterol 115 mg/dL; Estimated Glomerular Filt Rate > 60; Glucose Fasting 109 mg/dL (60-99); HDL Cholesterol 43 mg/dL; LDL Cholesterol Calculated 57 mg/dl; Sodium 139 mmol/L (135-145); Total Protein 7.1 g/dL (6.5-8.0); Triglycerides 75 mg/dL
== END 2022-12-15 09:55 | disposition home or self-care (01) ==
LOC: HO.LAB 09:54
PROVIDERS: PCP Internal Medicine; Visit Provider Internal Medicine
DX: N28.9 Disorder of kidney and ureter, unspecified (principal); D64.9 Anemia, unspecified; E78.5 Hyperlipidemia, unspecified
CPT/HCPCS: 36415; 80053; 80061; 85025

== ENCOUNTER 2023-03-03 08:58 | Outpatient (AMB) | payer MEDICARE, SELFPAY ==
--- NOTE | 2023-03-03 09:10 | MHC.OFFVIS ---
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 Allergies amoxicillin [Augmentin] Allergy (Severe, Verified 03/03/23 09:22) ANAPHYLAXIS clavulanic acid [CLAVULANIC ACID] Allergy (Severe, Verified 03/03/23 09:22) ANAPHYLAXIS Penicillins [PENICILLINS] Allergy (Severe, Verified 03/03/23 09:22) ANAPHYLAXIS sulfamethoxazole [From Bactrim] Allergy (Severe, Verified 03/03/23 09:22) Rash trimethoprim [From Bactrim] Allergy (Severe, Verified 03/03/23 09:22) Rash metronidazole [From FLAGYL] Allergy (Intermediate, Verified 03/03/23 09:22) RASH,NAUSEA VOMITING ciprofloxacin [From CIPRO] Allergy (Mild, Verified 03/03/23 09:22) RASH Iodinated Contrast Media [IV Dye, Iodine Containing] Allergy (Unknown, Verified 03/03/23 09:22) RASH levofloxacin [From LEVAQUIN] Allergy (Unknown, Verified 03/03/23 09:22) RASH metoprolol Allergy (Unknown, Verified 03/03/23 09:22) rash piperacillin [Zosyn] Allergy (Unknown, Verified 03/03/23 09:22) UNK. Sulfa (Sulfonamide Antibiotics) Allergy (Unknown, Verified 03/03/23 09:22) rash tazobactam [Zosyn] Allergy (Unknown, Verified 03/03/23 09:22) UNK. Medication List - Last Reconciled 03/03/23 by Luis Roach MD aspirin 81 mg PO DAILY atorvastatin 40 mg PO DAILY blood sugar diagnostic (FreeStyle Test strips) As directed esomeprazole magnesium 40 mg PO DAILY gabapentin 300 mg PO DAILY lancets (FreeStyle Lancets) As directed mesalamine ER 1.5 grams PO DAILY HPI HPI Comments History of Present Illness Details 77-year-old gentleman here for follow-up. He was previously seen for palpitations which would happen to stressful situations. His Holter monitor showed 4000 monomorphic PVCs. He underwent echocardiography which showed low normal ejection fraction of 50 for 55% he in does no symptoms. Given mildly dropped ejection fraction as well as premature ventricular complexes, I sent him for exercise stress test. He exercised for 1-1/2 minute and stopped due to dyspnea as per the documentation. Patient is saying that he was feeling tired and probably was hypoglycemic and that is why stop but he is unsure. He did not have any chest discomfort. He was changed to a Lexiscan which did not show any perfusion defects. He is returning for follow-up and continues to stay active. He is saying he can walk on a plain surface up to 3 mile. His repeat Holter is showing relatively less number PVCs (1743/24 hours). After discussion we plan cardiac catheterization. Cardiac catheterization showed a proximal LAD 70% stenosis. This was FFR positive at 0.73. After discussion with the patient was started on aspirin and statin. We did not intervene given the lack of symptoms. Unfortunately he had rash on his body 24 hour after the procedure. He was started on prednisone and this persisted for 2-3 weeks. He was also given metoprolol tartrate 25 mg twice a day but developed a rash. He has followed up after cardiac catheterization multiple times and has no symptoms. Clinically stable and denying any exertional symptoms. Also does not feel limited in his day-to-day life. Returns for follow-up. He continues to have no chest discomfort shortness of breath. He did have rectal bleeding and required blood transfusions. He is following with GI closely and is on mesalamine. 03/03/2023: He returns for follow-up. He is denying any chest discomfort or shortness of breath. He is saying that he gets tired by mid day and has to rest. He also feels that he has not been as strong as he was last year. He had rectal bleeding requiring 4 units of blood last year but has not had any further bleeding recently. Has been taking baby aspirin regularly. [facility] Medical History CAD (coronary artery disease) Colitis Diverticulitis GERD (gastroesophageal reflux disease) Hepatic abscess Hyperglycemia Hyperlipidemia PVC (premature ventricular contraction) RBBB Stable angina Surgical History History of colonoscopy Hx of hernia repair History of surgery on arm H/O colectomy Family History Family/Other Prostate cancer CVD (cardiovascular disease) Father CVD (cardiovascular disease) Social History Household Members: Spouse Housing: House Do you presently have visiting nurse or other home services: No Alcohol intake: current Alcohol intake frequency: holidays/special occasions only Patient Tobacco Use Status: Former Tobacco user Quit Date: Tobacco use type: Cigarette e-Cigarette/Vaping Use: Never Used Second Hand Smoke Exposure: No service: Yes Current occupational status: retired Cognitive needs: No Hearing needs: No Vision needs: No Review of Systems ENT Reports dizziness Card Denies chest pain, Denies chest pain at rest, Denies chest pain with activity, Denies rapid heart rate, Denies pedal edema, Denies edema, Denies leg edema, Denies lightheadedness, Denies palpitations, Denies dyspnea, Denies dyspnea on exertion and Denies orthopnea Resp Denies cough, Denies dyspnea and Denies dyspnea on exertion GI Denies hematochezia and Denies change in stool character Musc Denies abnormal gait, Reports limited range of motion, Reports muscle cramps, Denies muscle weakness, Denies numbness, Denies radiating pain into limb, Denies stiffness and Denies tingling Neuro Denies abnormal gait, Reports dizziness, Denies numbness and Denies tingling Endo Denies palpitations Physical Exam Vital Signs: Last Vital Signs Pulse 73 03/03/23 09:11 BP 114/74 03/03/23 09:11 BMI result Body Mass Index 25.3 GENERAL APPEARANCE: in no acute distress. NECK/THYROID: no carotid bruit, no lymphadenopathy. SKIN: no suspicious lesions, warm and dry. HEART: no murmurs, regular rate and rhythm, S1, S2 normal. LUNGS: clear to auscultation bilaterally. ABDOMEN: normal, bowel sounds present, soft, nontender, nondistended. EXTREMITIES: no edema. PERIPHERAL PULSES: equal. NEUROLOGIC: nonfocal, alert and oriented. Office Procedures EKG Details: NSR 73/min, PACs, RBBB, QTc 467 msec. [id number], Complete Assessment & Plan Assessment & Plan (1) RBBB: Code(s): I45.10 - Unspecified right bundle-branch block (2) Stable angina: Code(s): I20.8 - Other forms of angina pectoris (3) PVC (premature ventricular contraction): Code(s): I49.3 - Ventricular premature depolarization Plan 77-year-old gentleman here for follow-up. He has history of coronary disease and had LAD stenosis which was IFR positive. Does not have significant symptoms from coronary disease and denies chest pain or shortness of breath. He has colitis and had rectal bleeding requiring blood transfusions last year. He is currently taking baby aspirin without any recent bleeding. Continues to be asymptomatic at this stage. We had a detailed discussion about management of coronary artery disease in particular in his case with bleeding concerns and significant contrast reaction despite receiving steroids and antihistamines. Given the fact that he has no significant symptoms currently, we have decided to medically treat him for now. If he developed any symptoms in the future specifically chest discomfort or shortness of breath then we may have to consider angiography with PCI but would avoided as much as possible because of unpredictable risk of bleeding due to his history of colitis. Continue statin therapy. Follow-up in 4 months. Thank you for allowing me to participate in the care of your patient. Please feel free to contact me if you have any questions. Coding Level of Care Code Est Pt Level 4 (62917) Diagnoses RBBB I45.10 Stable angina I20.8 PVC (premature ventricular contraction) I49.3 CPT Codes EKG - CPT: 83942-[id number], Complete ([id number])
[2023-03-03 09:11] VITALS: BP 114/74; PULSE 73; BMI 25.3
== END 2023-03-03 09:48 | disposition home or self-care (01) ==
PROVIDERS: PCP Internal Medicine; Referring Provider Internal Medicine; Visit Provider Internal Medicine Cardiovascular Disease
DX: I45.10 Unspecified right bundle-branch block (principal); I20.8 Other forms of angina pectoris; I49.3 Ventricular premature depolarization
CPT/HCPCS: 93010; 99214

== ENCOUNTER → 2023-03-03 08:58 | Outpatient (BNVA) | payer MEDICARE, SELFPAY | PROVIDERS: PCP Internal Medicine; Referring Provider Internal Medicine; Visit Provider Internal Medicine Cardiovascular Disease | DX: I45.10 Unspecified right bundle-branch block (principal); I20.8 Other forms of angina pectoris; I49.3 Ventricular premature depolarization | CPT/HCPCS: 93005; 99212 ==

== ENCOUNTER 2023-05-13 08:07 | Emergency (ER) | payer MEDICARE, SELFPAY ==
--- NOTE | ~2023-05-13 | CT_ITS ---
EXAMINATION: CT ABDOMEN AND PELVIS WITHOUT CONTRAST CLINICAL INFORMATION: Left lower quadrant pain COMPARISON: CT abdomen and pelvis 12/28/2016 TECHNIQUE: Multidetector volumetric imaging was performed from the superior aspect of the liver through the pubic symphysis. Sagittal and coronal reformatted images were obtained on the technologist's workstation. This CT examination was performed using dose optimization techniques as appropriate, variously including the following: *Automated exposure control *Adjustment of mA and/or kV according to patient size (this includes techniques or standardized protocols for targeted exams where dose is matched to indication/reason for exam; i.e. extremities or head) *Use of iterative reconstruction technique DLP: 504 mGy-cm FINDINGS: LUNG BASES: There is bibasilar compressive atelectasis/scarring. Heart size is normal. LIVER, GALLBLADDER, AND BILIARY TREE: The liver is normal in size, shape, and attenuation. No focal hepatic lesion or biliary ductal dilatation is present. The gallbladder is unremarkable with no evidence of radiopaque gallstones, gallbladder wall thickening, or obvious pericholecystic inflammatory changes. PANCREAS: Unremarkable. SPLEEN: Unremarkable. ADRENAL GLANDS: Unremarkable. KIDNEYS AND URETERS: The kidneys are normal in size, shape, and attenuation. No hydronephrosis, hydroureter, or calculi seen. No perinephric stranding. BLADDER: The urinary bladder is distended without radiopaque calculi wall thickening.. GASTROINTESTINAL TRACT: There is scattered diverticula seen throughout the colon. There is thickening involving distal descending and proximal sigmoid colon with scattered diverticuli and pericolic fat stranding most suggestive of likely diverticulitis. Similar findings were seen on the previous CT 2017. Remote possibility of underlying lesion cannot be excluded due to similar location of abnormality seen on 2017 exam. There is no proximal bowel obstruction, free air or free fluid. Appendix is not visualized ABDOMINAL WALL: Wide opening of umbilical hernia containing fat is again visualized. LYMPH NODES: There are a few retroperitoneal lymph nodes. The largest aortocaval lymph node measuring 1.2 cm is stable compared to previous exam from 2017. VASCULAR: The abdominal aorta is mildly dilated in the mid segment measuring 2.8 x 3.3 cm on axial slice 34/3. PELVIC VISCERA: The prostate gland is enlarged likely resulting in bladder outlet obstruction and distention.. OSSEOUS STRUCTURES: There is grade 1 anterolisthesis L4 S1. Severe degenerative disc changes with vacuum disc phenomena and mild ventral and posterior spondylosis seen throughout lumbar spine. No fracture, lytic or sclerotic process seen. CT/CT abdomen pelvis wo IV con IMPRESSION: Distal descending and sigmoid colon likely diverticulitis. No proximal obstruction, extraluminal collection or free air seen. Similar findings were seen in 2017 at the same location. Moderate prostate enlargement resulting in bladder outlet obstruction and significant distended urinary bladder. Wide necked umbilical hernia containing fat similar to previous study Grade 1 anterolisthesis L4 S1 with severe degenerative disc changes and ventral and posterior spondylosis. 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 Stable retroperitoneal lymphadenopathy Fleischner guidelines were followed.
--- NOTE | 2023-05-13 08:27 | ED_ITS ---
HPI - Abdominal Pain General Chief Complaint: General Medical Stated Complaint: hx of GID , diharea since wednesday Time Seen by Provider: 05/13/23 08:11 Source: patient and family ( Spouse) Mode of arrival: ambulatory Limitations: no limitations History of Present Illness HPI narrative: 77-year-old male came in for evaluation of left lower quadrant abdominal plans and nonbloody watery diarrhea for 3 days. Started after eating dinner on Wednesday patient thing the food was bad started with brownish nonbloody watery diarrhea with no blood noticed by the patient, with intermittent left lower quadrant abdominal crampy pain mostly with diarrhea, no blood thinner, no nausea, no vomiting, no fever, no chills,passing flatus. Abdominal surgeries significant for appendectomy, partial colectomy, hernia repair. Related Data Home Medications Medication Instructions Recorded Confirmed aspirin 81 mg tablet,delayed 81 mg PO DAILY 04/29/20 03/03/23 release esomeprazole magnesium 40 mg 40 mg PO DAILY 04/29/20 03/03/23 capsule,delayed release mesalamine 0.375 gram 1.5 g PO DAILY 04/29/20 03/03/23 capsule,extended release 24 hr gabapentin 300 mg capsule 300 mg PO DAILY 06/09/22 03/03/23 Previous Rx's Medication Instructions Recorded lancets 28 gauge (FreeStyle #100 ea 06/09/22 Lancets) blood sugar diagnostic (FreeStyle #50 ea 06/16/22 Test strips) atorvastatin 40 mg tablet 40 mg PO DAILY #90 tabs 01/01/23 doxycycline hyclate 100 mg tablet 100 mg PO BID #14 tabs 05/13/23 Allergies Allergy/AdvReac Type Severity Reaction Status Date / Time amoxicillin [Augmentin] Allergy Severe ANAPHYLAXIS Verified 05/13/23 08:39 clavulanic acid Allergy Severe ANAPHYLAXIS Verified 05/13/23 08:39 [CLAVULANIC ACID] Penicillins [PENICILLINS] Allergy Severe ANAPHYLAXIS Verified 05/13/23 08:39 sulfamethoxazole Allergy Severe Rash Verified 05/13/23 08:39 [From Bactrim] trimethoprim [From Bactrim] Allergy Severe Rash Verified 05/13/23 08:39 metronidazole [From FLAGYL] Allergy Intermediate RASH,NAUSEA Verified 05/13/23 08:39 VOMITING ciprofloxacin [From CIPRO] Allergy Mild RASH Verified 05/13/23 08:39 Iodinated Contrast Media Allergy Unknown RASH Verified 05/13/23 08:39 [IV Dye, Iodine Containing] levofloxacin [From LEVAQUIN] Allergy Unknown RASH Verified 05/13/23 08:39 metoprolol Allergy Unknown rash Verified 05/13/23 08:39 piperacillin [Zosyn] Allergy Unknown UNK. Verified 03/03/23 09:22 Sulfa (Sulfonamide Allergy Unknown rash Verified 03/03/23 09:22 Antibiotics) tazobactam [Zosyn] Allergy Unknown UNK. Verified 03/03/23 09:22 Review of Systems Review of Systems all other systems are reviewed and are negative Constitutional: Reports as per HPI and Reports no additional constitutional complaints Eyes: Reports as per HPI and Reports no additional eye complaints Reports system reviewed and no additional complaints, except as documented Cardiovascular: Reports as per HPI and Reports no additional cardiovascular complaints Respiratory: Reports as per HPI and Reports no additional respiratory complaints Gastrointestinal: Reports as per HPI and Reports no additional gastrointestinal complaints Genitourinary: Reports no additional female genitourinary complaints Musculoskeletal: Reports no additional musculoskeletal complaints Skin/Breast: Reports system reviewed and no additional complaints, except as docu Psychiatric: Reports no additional psychiatric complaints Endocrine: Reports no additional endocrine complaints Hematologic/Lymphatic: Reports no additional hematologic/lymphatic complaints Allergic/Immunologic: Reports no additional allergic/immunologic complaints Reports system reviewed and no additional complaints, except as documented and Reports Abnormal speech present [facility] [place] Past Medical History Medical History Hepatic abscess Hyperglycemia Hyperlipidemia PVC (premature ventricular contraction) RBBB Stable angina CAD (coronary artery disease) Colitis Diverticulitis GERD (gastroesophageal reflux disease) Surgical History History of colonoscopy Hx of hernia repair History of surgery on arm H/O colectomy Family History Family History Family/Other Prostate cancer CVD (cardiovascular disease) Father CVD (cardiovascular disease) Social History Household Members: Spouse Housing: House Do you presently have visiting nurse or other home services: No Alcohol intake: current Alcohol intake frequency: holidays/special occasions only Patient Tobacco Use Status: Former Tobacco user Quit Date: Tobacco use type: Cigarette Smoked in Last 30 Days: No e-Cigarette/Vaping Use: Never Used Second Hand Smoke Exposure: No Use of substances other than those prescribed or required for medical reasons: No Advance Directives: Yes Advance Directives Information Provided: No Advance Directives on File: No service: Yes Current occupational status: retired Cognitive needs: No Hearing needs: No Vision needs: No Physical Exam ED Vital Signs: Vital Signs - 24 hr 05/13/23 08:39 05/13/23 08:44 05/13/23 08:45 Temperature 97.9 F Pulse Rate 62 60 65 Respiratory Rate 18 Blood Pressure 125/75 110/74 122/75 Pulse Oximetry 97 Oxygen Delivery Method Room Air 05/13/23 08:48 Temperature Pulse Rate 70 Respiratory Rate Blood Pressure 129/77 Pulse Oximetry Oxygen Delivery Method BMI result Body Mass Index 24.9 Vital signs have been reviewed and appear to be correct. Blood pressure elevated. Heart rate normal. Respiratory rate normal. Temperature normal. Oxygen saturation normal. Appearance: Alert. Oriented X3. No acute distress. Head: Normal external exam. Normocephalic. Atraumatic. No Marsh signs noted. No raccoon eyes noted Eyes: PERRLA. EOMI. Conjunctiva and sclera normal. Eyelids normal. ENT: TM's Normal. Pharynx normal. Uvula midline. Moist mucous membranes. No trismus noted. No drooling noted. No muffled voice noted. Neck: Normal inspection. Neck supple. FROM. No adenopathy. Thyroid Normal. No meningeal signs. No neck mass noted. CVS: Normal heart rate and rhythm. Heart sound normal. No murmurs noted. Pulses normal throughout. Respiratory: No respiratory distress. Painless inspiration. Breath sounds normal. No wheezes/rales/rhonchi noted. Chest nontender. No accessory muscle usage noted or decreased air movement noted. Abdomen: Soft and nontender. Bowel sounds normal in all 4 quadrants. No distention noted. No organomegaly noted. No visible injury noted. Rectal exam: No external or internal hemorrhoid, brownish liquid stool with guaiac negative. Back: No CVA tenderness. Full range of motion noted. Skin: Skin warm and dry. Normal skin color. Normal skin turgor. No rashes/lesions/lacerations noted. Extremities: No lower extremity edema. Extremities exhibit normal range of motion. Extremities nontender. Neuro: Oriented X 3. Cranial nerve exam: II-XII are grossly intact No motor deficit. No sensory deficit. Reflexes normal. Course Reevaluation(s) Reevaluation #1: 77-year-old male with history of diverticular disease presented with left lower quadrant abdominal cramps for the past 2-3 days with nonbloody watery diarrhea CT confirmed diagnosis of acute diverticulitis mild leukocytosis without left shift, patient is allergic to most of antibiotic, he would like to take oral antibiotic trial and be discharged today to celebrate thanksgiven with the family today will try doxycycline for 1 week course, patient was instructed to start with clear diet and advance as tolerated. Time: 10:40 Medical Decision Making Differential Diagnosis Differential Diagnoses: The differential diagnosis associated with the presentation includes ( Colitis, diverticulitis, perforated viscus, gastroenteritis, pancreatitis, dehydration, electrolyte abnormality, anemia.) Admission/Observation Consideration of admission/observation: Escalation of care including admission/observation considered Lab Data MDM Lab Attestation statement: I reviewed the patient's lab results. 05/13/23 08:59 05/13/23 08:59 Labs: Lab Results 05/13/23 Range/Units 08:59 WBC 11.3 H (4.8-10.8) X10*3/uL RBC 5.03 (4.60-5.80) X10*6/uL Hgb 13.4 L (14.0-18.0) g/dl Hct 41.6 L (42.0-52.0) % MCV 82.7 (80.0-98.0) fL MCH 26.6 L (27.0-33.0) pg MCHC 32.2 (31.0-36.0) g/dl RDW 15.8 (11.0-16.0) % Plt Count 344 (160-400) X10*3/uL MPV 9.3 L (9.4-12.4) fL Immature Gran % (Auto) 0.3 (0.0-0.4) % Neut % (Auto) 80.6 H (45-73) % Lymph % (Auto) 11.0 L (20-40) % Corson % (Auto) 7.7 (2-11) % Eos % (Auto) 0.0 (0-4) % Baso % (Auto) 0.4 (0-2) % Lymph # (Auto) 1.2 (1.2-4.9) X10*3/uL [place]on # (Auto) 0.9 (0.1-1.2) X10*3/uL Eos # (Auto) 0.0 (0.0-0.4) X10*3/uL Baso # (Auto) 0.1 (0.0-0.2) X10*3/uL Abs Immat Gran (auto) 0.03 (0.00-0.03) X10*3/uL Absolute Neuts (auto) 9.1 H (2.0-8.3) x10*3/uL Absolute Nucleated RBC 0.000 (0.0-0.012) X10*3/uL Nucleated RBC % (auto) 0.0 (0.0-0.2) /100WBC Sodium 139 (135-145) mmol/L Potassium 4.2 (3.3-5.1) mmol/L Chloride 108 (96-108) mmol/L Carbon Dioxide 26 (22-29) mmol/L Anion Gap 9 L (12-20) BUN 11 (9-16) mg/dL Creatinine 0.69 (0.5-1.4) mg/dL Estim Creat Clear Calc 85.3 Estimated GFR > 60 Random Glucose 122 H (60-115) mg/dL Calcium 9.1 (8.4-10.2) mg/dL Total Bilirubin 0.6 (0.0-1.0) mg/dL Direct Bilirubin 0.3 (0.0-0.5) mg/dL AST 25 (5-37) U/L ALT 34 (0-40) U/L Alkaline Phosphatase 72 (39-117) U/L Total Protein 7.0 (6.5-8.0) g/dL Albumin 4.0 (3.5-5.0) g/dL Lipase 21 (8-78) U/L Influenza Type A (PCR) NEGATIVE (Negative) Influenza Type B (PCR) NEGATIVE (Negative) RSV RNA Qual (PCR) NEGATIVE (Negative) SARS-CoV-2 RNA (RT-PCR) NEGATIVE (Negative) Independent Interpretation I performed an independent interpretation of an: CT Scan (Distal descending and sigmoid colon likely diverticulitis. No proximal obstruction, extraluminal collection or free air seen. Similar findings were seen in 2017 at the same location. Moderate prostate enlargement resulting in bladder outlet obstruction and significant distended urinary bladder. ) Radiology Impression Discussion of test interpretation with radiology: I have reviewed the radiologist's reading. Medications Administered Discontinued Medications Generic Name Dose Route Start Last Admin Trade Name Freq PRN Reason Stop Dose Admin Sodium Chloride 1,000 mls @ 999 mls/hr 05/13/23 08:24 05/13/23 09:00 Ns IV 05/13/23 09:24 999 mls/hr .Q1H1M ONE Administration Loperamide HCl 2 mg 05/13/23 08:26 05/13/23 09:19 Loperamide Hcl 2 Mg Capsule PO 05/13/23 08:27 2 mg ONCE ONE Administration Discharge Plan Discharge Clinical Impression: Diverticulitis Patient Disposition: Home, Self-Care Instructions: Diverticulitis (ED), Diverticulitis Diet (ED) Prescriptions: New doxycycline hyclate 100 mg tablet 100 mg PO BID Qty: 14 0RF No Action (DME) FreeStyle Test Strip See Rx Instructions .Route Qty: 50 8RF Rx Instructions: As directed atorvastatin 40 mg tablet 40 mg PO DAILY Qty: 90 3RF gabapentin 300 mg capsule 300 mg PO DAILY (DME) lancets [FreeStyle Lancets] 28 gauge misc See Rx Instructions .Route Qty: 100 7RF Rx Instructions: As directed mesalamine 0.375 gram capsule,extended release 24hr 1.5 g PO DAILY esomeprazole magnesium 40 mg capsule,delayed release(DR/EC) 40 mg PO DAILY aspirin 81 mg tablet,delayed release (DR/EC) 81 mg PO DAILY Hold Instructions: Resume on 03/24/22. Referrals: Tawanda Yu MD [Primary Care Provider] -
[2023-05-13 08:39] VITALS: BP 125/75; PULSE 62; RESP 18; TEMP 36.6; O2SAT 97; BMI 24.9
[2023-05-13 08:44] VITALS: BP 110/74; PULSE 60
[2023-05-13 08:45] VITALS: BP 122/75; PULSE 65
[2023-05-13 08:48] VITALS: BP 129/77; PULSE 70
[2023-05-13] MEDS: 0.9 % Sodium Chloride 1,000 ML 999 ML IV (09:00)
[2023-05-13 09:05] LABS: MANUAL DIFF FLAG NO
[2023-05-13 09:08] LABS: Basophils Absolute Auto 0.1 X10*3/uL (0.0-0.2); Basophils Percent Auto 0.4 % (0-2); Hematocrit 41.6 % (42.0-52.0); Hemoglobin 13.4 g/dl (14.0-18.0); Imm Gran Abs Auto 0.03 X10*3/uL (0.00-0.03); Imm Gran Pct Auto 0.3 % (0.0-0.4); Lymphocytes Absolute Auto 1.2 X10*3/uL (1.2-4.9); Mean Corpuscular HGB Conc 32.2 g/dl (31.0-36.0); Mean Corpuscular Hemoglobin 26.6 pg (27.0-33.0); Mean Corpuscular Volume 82.7 fL (80.0-98.0); Mean Platelet Volume 9.3 fL (9.4-12.4); Monocytes Absolute Auto 0.9 X10*3/uL (0.1-1.2); Monocytes Percent Auto 7.7 % (2-11); Neutrophils Absolute Auto 9.1 x10*3/uL (2.0-8.3); Neutrophils Percent Auto 80.6 % (45-73); Platelet Count 344 X10*3/uL (160-400); Red Blood Count 5.03 X10*6/uL (4.60-5.80); Red Cell Distribution Width 15.8 % (11.0-16.0); White Blood Count 11.3 X10*3/uL (4.8-10.8)
[2023-05-13] MEDS: Loperamide HCl 2 MG CAPSULE PO (09:19)
--- NOTE | 2023-05-13 09:20 | PC.NURSE ---
patient a&ox3, iv inserted, labs drawn, nasal swab obtained, ortho stats performed- negative, ivf started per order, pt medicated per order, pt awaiting radiology, call rodriguez within reach, family at bedside, will continue to monitor.
[2023-05-13 09:23] LABS: Alanine Aminotransferase 34 U/L (0-40); Alkaline Phosphatase 72 U/L (39-117); Anion Gap 9 (12-20); Aspartate Amino Transferase 25 U/L (5-37); Bilirubin Direct 0.3 mg/dL (0.0-0.5); Bilirubin Total 0.6 mg/dL (0.0-1.0); Blood Urea Nitrogen 11 mg/dL (9-16); Calcium 9.1 mg/dL (8.4-10.2); Carbon Dioxide 26 mmol/L (22-29); Chloride 108 mmol/L (96-108); Creatinine Clr Calc Pharmacy 85.3; Estimated Glomerular Filt Rate > 60; Glucose Random 122 mg/dL (60-115); Lipase 21 U/L (8-78); Potassium 4.2 mmol/L (3.3-5.1); Sodium 139 mmol/L (135-145)
[2023-05-13 10:15] LABS: Influenza A PCR NEGATIVE (Negative); Influenza B PCR NEGATIVE (Negative); Resp Syncy Virus RNA Qual PCR NEGATIVE (Negative); SARS COV2 PCR INHOUSE NEGATIVE (Negative)
[2023-05-13] MEDS: Doxycycline Monohydrate 100 MG CAPSULE PO (11:04)
== END 2023-05-13 11:11 | disposition home or self-care (01) ==
PROVIDERS: Emergency Provider Emergency Medicine; PCP Internal Medicine
DX: K57.32 Diverticulitis of large intestine without perforation or abscess without bleeding (principal); Z20.822 Contact with and (suspected) exposure to COVID-19; Z20.828 Contact with and (suspected) exposure to other viral communicable diseases; E78.5 Hyperlipidemia, unspecified; Z79.82 Long term (current) use of aspirin; Z79.899 Other long term (current) drug therapy; Z79.02 Long term (current) use of antithrombotics/antiplatelets; Z87.891 Personal history of nicotine dependence
CPT/HCPCS: 0241U; 74176; 80048; 80076; 83690; 85025; 96360; 99284

== ENCOUNTER 2023-05-20 10:31 | Outpatient (AMB) | payer MEDICARE, SELFPAY ==
[2023-05-20 10:44] VITALS: BP 120/68; PULSE 55; O2SAT 99; BMI 25.5
--- NOTE | 2023-05-20 10:44 | MHC.PC.OV ---
Vital Signs 05/20/23 10:44 Height 5 ft 8 in Weight 168 lb BMI 25.5 BP 120/68 Blood Pressure Location Lt brachial Position Sitting Pulse 55 Pulse Source Pulse Oximeter Pulse Oximetry (%) 99 Oxygen Delivery Method Room Air Intake Visit Reasons: [facility] [place] 05/13/23 Diarrhea Allergies amoxicillin [Augmentin] Allergy (Severe, Verified 05/13/23 08:39) ANAPHYLAXIS clavulanic acid [CLAVULANIC ACID] Allergy (Severe, Verified 05/13/23 08:39) ANAPHYLAXIS Penicillins [PENICILLINS] Allergy (Severe, Verified 05/13/23 08:39) ANAPHYLAXIS sulfamethoxazole [From Bactrim] Allergy (Severe, Verified 05/13/23 08:39) Rash trimethoprim [From Bactrim] Allergy (Severe, Verified 05/13/23 08:39) Rash metronidazole [From FLAGYL] Allergy (Intermediate, Verified 05/13/23 08:39) RASH,NAUSEA VOMITING ciprofloxacin [From CIPRO] Allergy (Mild, Verified 05/13/23 08:39) RASH Iodinated Contrast Media [IV Dye, Iodine Containing] Allergy (Unknown, Verified 05/13/23 08:39) RASH levofloxacin [From LEVAQUIN] Allergy (Unknown, Verified 05/13/23 08:39) RASH metoprolol Allergy (Unknown, Verified 05/13/23 08:39) rash piperacillin [Zosyn] Allergy (Unknown, Verified 03/03/23 09:22) UNK. Sulfa (Sulfonamide Antibiotics) Allergy (Unknown, Verified 03/03/23 09:22) rash tazobactam [Zosyn] Allergy (Unknown, Verified 03/03/23 09:22) UNK. Medication List - Last Reconciled 05/20/23 by Tawanda Yu MD aspirin 81 mg PO DAILY atorvastatin 40 mg PO DAILY blood sugar diagnostic (FreeStyle Test strips) As directed doxycycline hyclate 100 mg PO BID esomeprazole magnesium 40 mg PO DAILY gabapentin 300 mg PO DAILY lancets (FreeStyle Lancets) As directed mesalamine ER 1.5 grams PO DAILY Tobacco use date assessed: 12/15/22 Fall risk assessment: No Falls in past year Last assessed Fall Risk: 05/20/23 Dental Screening Dental Screen Date: 05/20/23 Did you have a dental visit in the last 12 months?: Yes Did you have a dental problem in the last 6 months where you did not have access to dental care?: No Was dental information given to patient?: Patient has dentist HPI [facility] [place] 05/13/23 Diarrhea HPI Details ER visit for diverticulitis with abd pain and diarrhea; has been recurrent and sees GI; given antibiotics and fine now PFSH Medical History Hepatic abscess Hyperglycemia Hyperlipidemia PVC (premature ventricular contraction) RBBB Stable angina CAD (coronary artery disease) Colitis Diverticulitis GERD (gastroesophageal reflux disease) Surgical History History of colonoscopy Hx of hernia repair History of surgery on arm H/O colectomy Family History Family/Other Prostate cancer CVD (cardiovascular disease) Father CVD (cardiovascular disease) Social History Household Members: Spouse Housing: House Do you presently have visiting nurse or other home services: No Alcohol intake: current Alcohol intake frequency: holidays/special occasions only Comment: Non-skid socks on Patient Tobacco Use Status: Former Tobacco user Quit Date: Tobacco use type: Cigarette e-Cigarette/Vaping Use: Never Used Second Hand Smoke Exposure: No service: Yes Current occupational status: retired Cognitive needs: No Hearing needs: No Vision needs: No Questionnaire Thrive Questionnaire Date Thrive assessed: 12/15/22 ALEJANDRA-7 AMB Questionnaire ALEJANDRA-7 Date ALEJANDRA - 7 assessed: 12/15/22 Source: Developed by Drs. Musa Wang, Susan Jimenez, Jovanny Browning and colleagues, with an educational jamaal from [employer]. Review of Systems Const Denies chills, Denies headache(s) and Denies weight loss ENT Denies headache(s) Card Denies chest pain, Denies syncope, Denies irregular heart rhythm and Denies dyspnea Resp Denies chest congestion, Denies cough and Denies dyspnea GI Denies abdominal pain, Denies change in stool character, Denies nausea and Denies vomiting Musc Denies deformity and Denies joint swelling Neuro Denies syncope and Denies headache(s) Physical exam (Primary Care) Vital Signs: Last Vital Signs Pulse 55 05/20/23 10:44 BP 120/68 05/20/23 10:44 Pulse Ox 99 05/20/23 10:44 Oxygen Delivery Method Room Air 05/20/23 10:44 BMI result Body Mass Index 25.5 Tobacco/Smoking Status: Tobacco use Status Tobacco use date assessed 12/15/22 05/20/23 10:48 Patient Tobacco Use Status Former Tobacco user 05/20/23 10:48 Tobacco use type Cigarette 05/20/23 10:48 e-Cigarette/Vaping Use Never Used 05/20/23 10:48 Thrive Assessment: Date of Thrive Assessment Date Thrive assessed 12/15/22 05/20/23 10:48 Const General: cooperative, comfortable, no acute distress and alert Neck Neck: Yes no lymphadenopathy Thyroid: Thyroid normal Resp Effort & Inspection: normal respiratory effort Auscultation: clear to auscultation bilaterally Percussion: percussion normal Cardio Jugular venous distension: no JVD Palpation: normal PMI Rate: regular rate Rhythm: regular rhythm Heart sounds: S1 normal heart sound present and S2 normal heart sound present GI Inspection: Yes normal to inspection Palpation (GI): No hepatosplenomegaly present Skin General skin exam: no rashes or lesions noted Extrem General: Yes no clubbing, cyanosis or edema Assessment and Plan Assessment & Plan (1) Diverticulitis: Code(s): K57.92 - Diverticulitis of intestine, part unspecified, without perforation or abscess without bleeding Orders: Orders Lipid Panel Today E78.5 - Hyperlipidemia, unspecified Medications: Refilled blood sugar diagnostic (FreeStyle Test strips) As directed 50 ea 8RF lancets (FreeStyle Lancets) As directed 100 ea 7RF Coding Level of Care Code Est Pt Level 3 (11671) Diagnoses Diverticulitis K57.92
== END 2023-05-20 11:07 | disposition home or self-care (01) ==
PROVIDERS: PCP Internal Medicine; Visit Provider Internal Medicine
DX: K57.92 Diverticulitis of intestine, part unspecified, without perforation or abscess without bleeding (principal)
CPT/HCPCS: 99213

== ENCOUNTER 2023-05-21 06:46 | Outpatient (REF) | payer MEDICARE, SELFPAY ==
[2023-05-21 07:34] LABS: Cholesterol 110 mg/dL (<200); HDL Cholesterol 43 mg/dL (>40); LDL Cholesterol Calculated 52 mg/dL (<100); Triglycerides 79 mg/dL (<150)
== END 2023-05-21 06:47 | disposition home or self-care (01) ==
LOC: HO.LAB 06:46
PROVIDERS: PCP Internal Medicine; Visit Provider Internal Medicine
DX: E78.5 Hyperlipidemia, unspecified (principal)
CPT/HCPCS: 36415; 80061

== ENCOUNTER 2023-07-07 09:37 | Outpatient (AMB) | payer MEDICARE, SELFPAY ==
--- NOTE | 2023-07-07 09:43 | A.OFFVIS_ITS ---
Intake Vital Signs 07/07/23 09:44 Height 5 ft 8 in Weight 167 lb 8.821 oz BMI 25.5 BP 110/62 Blood Pressure Location Rt brachial Position Sitting Pulse 63 Pulse Source Pulse Oximeter Intake Visit Reasons: 4 month follow up Intake Note: 4 mnht f/up pt its feeling good. 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 Accompanied by: Spouse Allergies amoxicillin [Augmentin] Allergy (Severe, Verified 05/13/23 08:39) ANAPHYLAXIS clavulanic acid [CLAVULANIC ACID] Allergy (Severe, Verified 05/13/23 08:39) ANAPHYLAXIS Penicillins [PENICILLINS] Allergy (Severe, Verified 05/13/23 08:39) ANAPHYLAXIS sulfamethoxazole [From Bactrim] Allergy (Severe, Verified 05/13/23 08:39) Rash trimethoprim [From Bactrim] Allergy (Severe, Verified 05/13/23 08:39) Rash metronidazole [From FLAGYL] Allergy (Intermediate, Verified 05/13/23 08:39) RASH,NAUSEA VOMITING ciprofloxacin [From CIPRO] Allergy (Mild, Verified 05/13/23 08:39) RASH Iodinated Contrast Media [IV Dye, Iodine Containing] Allergy (Unknown, Verified 05/13/23 08:39) RASH levofloxacin [From LEVAQUIN] Allergy (Unknown, Verified 05/13/23 08:39) RASH metoprolol Allergy (Unknown, Verified 05/13/23 08:39) rash piperacillin [Zosyn] Allergy (Unknown, Verified 03/03/23 09:22) UNK. Sulfa (Sulfonamide Antibiotics) Allergy (Unknown, Verified 03/03/23 09:22) rash tazobactam [Zosyn] Allergy (Unknown, Verified 03/03/23 09:22) UNK. Medication List - Last Reconciled 07/07/23 by Luis Roach MD aspirin 81 mg PO DAILY atorvastatin 40 mg PO DAILY blood sugar diagnostic (FreeStyle Test strips) As directed doxycycline hyclate 100 mg PO BID esomeprazole magnesium 40 mg PO DAILY gabapentin 300 mg PO DAILY lancets (FreeStyle Lancets) As directed mesalamine ER 1.5 grams PO DAILY HPI HPI Comments History of Present Illness Details 77-year-old gentleman here for follow-up. He was previously seen for palpitations which would happen to stressful situations. His Holter monitor showed 4000 monomorphic PVCs. He underwent echocardiography which showed low normal ejection fraction of 50 for 55% he in does no symptoms. Given mildly dropped ejection fraction as well as premature ventricular complexes, I sent him for exercise stress test. He exercised for 1-1/2 minute and stopped due to dyspnea as per the documentation. Patient is saying that he was feeling tired and probably was hypoglycemic and that is why stop but he is unsure. He did not have any chest discomfort. He was changed to a Lexiscan which did not show any perfusion defects. He is returning for follow-up and continues to stay active. He is saying he can walk on a plain surface up to 3 mile. His repeat Holter is showing relatively less number PVCs (1743/24 hours). After discussion we plan cardiac catheterization. Cardiac catheterization showed a proximal LAD 70% stenosis. This was FFR positive at 0.73. After discussion with the patient was started on aspirin and statin. We did not intervene given the lack of symptoms. Unfortunately he had rash on his body 24 hour after the procedure. He was started on prednisone and this persisted for 2- 3 weeks. He was also given metoprolol tartrate 25 mg twice a day but developed a rash. He has followed up after cardiac catheterization multiple times and has no symptoms. Clinically stable and denying any exertional symptoms. Also does not feel limited in his day-to-day life. Returns for follow-up. He continues to have no chest discomfort shortness of breath. He did have rectal bleeding and required blood transfusions. He is following with GI closely and is on mesalamine. 03/03/2023: He returns for follow-up. Sarita bhatia is denying any chest discomfort or shortness of breath. He is saying that he gets tired by mid day and has to rest. He also feels that he has not been as strong as he was last year. He had rectal bleeding requiring 4 units of blood last year but has not had any further bleeding recently. Has been taking baby aspirin regularly. 07/07/2023: He returns for follow-up. H e has been stable and is denying any chest discomfort or significant shortness of breath. Occasionally gets shortness of breath with activities but no consistent symptoms. Taking baby aspirin and tolerating with no recent bleeding. He previously had colitis with bleeding. [facility] Medical History Hepatic abscess Hyperglycemia Hyperlipidemia PVC (premature ventricular contraction) RBBB Stable angina CAD (coronary artery disease) Colitis Diverticulitis GERD (gastroesophageal reflux disease) Surgical History History of colonoscopy Hx of hernia repair History of surgery on arm H/O colectomy Family History Family/Other Prostate cancer CVD (cardiovascular disease) Father CVD (cardiovascular disease) Social History Household Members: Spouse Housing: House Do you presently have visiting nurse or other home services: No Alcohol intake: current Alcohol intake frequency: holidays/special occasions only Comment: Non-skid socks on Patient Tobacco Use Status: Former Tobacco user Quit Date: Tobacco use type: Cigarette e-Cigarette/Vaping Use: Never Used Second Hand Smoke Exposure: No service: Yes Current occupational status: retired Cognitive needs: No Hearing needs: No Vision needs: No Review of Systems Const Reports chills, Reports fatigue, Reports fever(s), Reports frequent falls, Reports weakness, Reports weight gain and Reports weight loss ENT Reports dizziness Card Reports chest pain, Reports leg edema, Reports lightheadedness, Reports palpitations, Reports dyspnea and Reports dyspnea on exertion Resp Reports cough, Reports dyspnea and Reports dyspnea on exertion GI Reports hematochezia Musc Reports abnormal gait, Reports muscle weakness, Reports numbness, Reports radiating pain into limb and Reports tingling Neuro Reports abnormal gait, Reports dizziness, Reports frequent falls, Reports numbness, Reports tingling and Reports weakness Endo Reports fatigue and Reports palpitations Physical Exam Vital Signs: Last Vital Signs Pulse 63 07/07/23 09:44 BP 110/62 07/07/23 09:44 BMI result Body Mass Index 25.5 GENERAL APPEARANCE: in no acute distress. NECK/THYROID: no carotid bruit, no lymphadenopathy. SKIN: no suspicious lesions, warm and dry. HEART: no murmurs, regular rate and rhythm, S1, S2 normal. LUNGS: clear to auscultation bilaterally. ABDOMEN: normal, bowel sounds present, soft, nontender, nondistended. EXTREMITIES: no edema. PERIPHERAL PULSES: equal. NEUROLOGIC: nonfocal, alert and oriented. Assessment & Plan Assessment & Plan (1) Stable angina: Code(s): I20.8 - Other forms of angina pectoris (2) RBBB: Code(s): I45.10 - Unspecified right bundle-branch block Plan Pleasant 77-year-old gentleman who is here for follow-up. Has known history of coronary disease with stable angina. Previously had GI bleeding with colitis and at that time the angiogram was performed we decided to medically treat him. He also had a significant contrast reaction which was a delayed reaction despite getting steroids and antihistamines. He overall continues to be stable. 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 Continue same medications for now. He will see us back in 3 months. If he develops change in his dyspnea or chest discomfort then we may have to consider further testing. Right now is stable and does not need any further testing. Thank you for allowing me to participate in the care of your patient. Please feel free to contact me if you have any questions. Coding Level of Care Code Est Pt Level 4 (52058) Diagnoses Stable angina I20.8 RBBB I45.10
[2023-07-07 09:44] VITALS: BP 110/62; PULSE 63; BMI 25.5
== END 2023-07-07 10:17 | disposition home or self-care (01) ==
PROVIDERS: PCP Internal Medicine; Visit Provider Internal Medicine Cardiovascular Disease
DX: I20.8 Other forms of angina pectoris (principal); I45.10 Unspecified right bundle-branch block
CPT/HCPCS: 99214

== ENCOUNTER → 2023-07-07 09:37 | Outpatient (BNVA) | payer MEDICARE, SELFPAY | PROVIDERS: PCP Internal Medicine; Visit Provider Internal Medicine Cardiovascular Disease | DX: I20.89 Other forms of angina pectoris (principal); I45.10 Unspecified right bundle-branch block; Z79.82 Long term (current) use of aspirin | CPT/HCPCS: 99212 ==

== ENCOUNTER 2023-08-18 08:20 | Outpatient (AMB) | payer MEDICARE, SELFPAY ==
[2023-08-18 08:30] VITALS: BP 120/72; PULSE 55; O2SAT 99; BMI 25.5
--- NOTE | 2023-08-18 08:30 | A.OFFPC_ITS ---
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 Accompanied by: Self / Same As Patient Allergies amoxicillin [Augmentin] Allergy (Severe, Verified 08/18/23 08:30) ANAPHYLAXIS clavulanic acid [CLAVULANIC ACID] Allergy (Severe, Verified 08/18/23 08:30) ANAPHYLAXIS Penicillins [PENICILLINS] Allergy (Severe, Verified 08/18/23 08:30) ANAPHYLAXIS sulfamethoxazole [From Bactrim] Allergy (Severe, Verified 08/18/23 08:30) Rash trimethoprim [From Bactrim] Allergy (Severe, Verified 08/18/23 08:30) Rash metronidazole [From FLAGYL] Allergy (Intermediate, Verified 08/18/23 08:30) RASH,NAUSEA VOMITING ciprofloxacin [From CIPRO] Allergy (Mild, Verified 08/18/23 08:30) RASH Iodinated Contrast Media [IV Dye, Iodine Containing] Allergy (Unknown, Verified 08/18/23 08:30) RASH levofloxacin [From LEVAQUIN] Allergy (Unknown, Verified 08/18/23 08:30) RASH metoprolol Allergy (Unknown, Verified 08/18/23 08:30) rash piperacillin [Zosyn] Allergy (Unknown, Verified 08/18/23 08:30) UNK. Sulfa (Sulfonamide Antibiotics) Allergy (Unknown, Verified 08/18/23 08:30) rash tazobactam [Zosyn] Allergy (Unknown, Verified 08/18/23 08:30) UNK. Medication List - Last Reconciled 08/18/23 by Tawanda Yu MD aspirin 81 mg PO DAILY atorvastatin 40 mg PO DAILY blood sugar diagnostic (FreeStyle Test strips) As directed doxycycline hyclate 100 mg PO BID esomeprazole magnesium 40 mg PO DAILY gabapentin 300 mg PO DAILY lancets (FreeStyle Lancets) As directed mesalamine ER 1.5 grams PO DAILY Tobacco use date assessed: 08/18/23 Fall risk assessment: No Falls in past year Last assessed Fall Risk: 08/18/23 Dental Screening Dental Screen Date: 08/18/23 Did you have a dental visit in the last 12 months?: Yes Did you have a dental problem in the last 6 months where you did not have access to dental care?: No Was dental information given to patient?: Patient has dentist HPI 3 month f/u HPI Details bilat foot pain for years, worse recently PFSH Medical History Hepatic abscess Hyperglycemia Hyperlipidemia PVC (premature ventricular contraction) RBBB Stable angina CAD (coronary artery disease) Colitis Diverticulitis GERD (gastroesophageal reflux disease) Surgical History History of colonoscopy Hx of hernia repair History of surgery on arm H/O colectomy Family History Family/Other Prostate cancer CVD (cardiovascular disease) Father CVD (cardiovascular disease) Social History Household Members: Spouse Housing: House Do you presently have visiting nurse or other home services: No Alcohol intake: current Alcohol intake frequency: holidays/special occasions only Comment: Non-skid socks on Patient Tobacco Use Status: Former Tobacco user Quit Date: Tobacco use type: Cigarette e-Cigarette/Vaping Use: Never Used Second Hand Smoke Exposure: No service: Yes Current occupational status: retired Cognitive needs: No Hearing needs: No Vision needs: No Questionnaire PHQ-9 Over the last 2 weeks, how often have you been bothered by any of the following problems? 1. Little interest or pleasure in doing things: not at all 2. Feeling down, depressed, or hopeless: not at all 3. Trouble falling or staying asleep, or sleeping too much: not at all 4. Feeling tired or having little energy: not at all 5. Poor appetite or overeating: not at all 6. Feeling bad about yourself - or that you are a failure or have let yourself or your family down: not at all 7. Trouble concentrating on things, such as reading the newspaper or watching television: not at all 8. Moving or speaking so slowly that other people could have noticed. Or the opposite - being so fidgety or restless that you have been moving around a lot more than usual: not at all 9. Thoughts that you would be better off or of hurting yourself in some way: not at all Total score: 0 Depression Screening Interpretation: Negative Depression Screening Done: Yes Source: Developed by Drs. Musa Wang, Jovanny Lang and colleagues, with an educational jamaal from [employer]. Thrive Questionnaire Date Thrive assessed: 08/18/23 I am a: Patient What is your living situation today?: I have a steady place to live Within the past 12 months, did the food you bought not last and you didn't have the money to get more?: Never true Within the past 12 months, did you worry whether your food would run out before you got money to buy more?: Never true Do you have trouble paying for medicines?: No Do you have trouble getting transportation to medical appointments?: No Do you have trouble paying your heating and electricity bill?: No Do you have trouble taking care of your child, family member or friend?: No Do you have trouble with day-to-day activities such as bathing, preparing meals, shopping, managing finances, etc.?: No Are you currently unemployed and looking for a job?: No Are you interested in more education?: No Please select the resources that you would like help with: None THRIVE Score: 0 AUDIT C Alcohol Use Questionnaire (AUDIT-C) 1. How often do you have a drink containing alcohol?: Never Total Score: 0 ALEJANDRA-7 AMB Questionnaire ALEJANDRA-7 Date ALEJANDRA - 7 assessed: 08/18/23 Feeling nervous, anxious, or on edge: 0 = Not at all Not being able to stop or control worryin = Not at all Worrying too much about different things: 0 = Not at all Trouble relaxin = Not at all Being so restless that it is hard to sit still: 0 = Not at all Becoming easily annoyed or irritable: 0 = Not at all Feeling afraid as if something awful might happen: 0 = Not at all Total ALEJANDRA-7 score (0-4 normal; 5-9 mild; 10-14 moderate; 15-21 severe): 0 Source: Developed by Susan Moctezuma Kurt Kroenke and colleagues, with an educational jamaal from [employer]. Review of Systems Const Denies chills, Denies headache(s) and Denies weight loss ENT Denies headache(s) Card Denies chest pain, Denies syncope, Denies irregular heart rhythm and Denies dyspnea Resp Denies chest congestion, Denies cough and Denies dyspnea GI Denies abdominal pain, Denies change in stool character, Denies nausea and Denies vomiting Musc Denies deformity and Denies joint swelling Neuro Denies syncope and Denies headache(s) Physical exam (Primary Care) Vital Signs: Last Vital Signs Pulse 55 08/18/23 08:30 BP 120/72 08/18/23 08:30 Pulse Ox 99 08/18/23 08:30 Oxygen Delivery Method Room Air 08/18/23 08:30 BMI result Body Mass Index 25.5 Tobacco/Smoking Status: Tobacco use Status Tobacco use date assessed 08/18/23 08/18/23 08:31 Patient Tobacco Use Status Former Tobacco user 08/18/23 08:31 Tobacco use type Cigarette 08/18/23 08:31 e-Cigarette/Vaping Use Never Used 08/18/23 08:31 PHQ-9: PHQ-9 Score PHQ-9: Total score 0 08/18/23 08:31 Depression Screening Interpretation: Negative Thrive Assessment: Date of Thrive Assessment Date Thrive assessed 08/18/23 08/18/23 08:31 Const General: cooperative, comfortable, no acute distress and alert Neck Neck: Yes no lymphadenopathy Thyroid: Thyroid normal Resp Effort & Inspection: normal respiratory effort Auscultation: clear to auscultation bilaterally Percussion: percussion normal Cardio Jugular venous distension: no JVD Palpation: normal PMI Rate: regular rate Rhythm: regular rhythm Heart sounds: S1 normal heart sound present and S2 normal heart sound present GI Inspection: Yes normal to inspection Palpation (GI): No hepatosplenomegaly present Skin General skin exam: no rashes or lesions noted Extrem General: Yes no clubbing, cyanosis or edema Assessment and Plan Assessment & Plan (1) Foot pain: Code(s): M79.673 - Pain in unspecified foot Plan: labs and xr Orders: Orders XR foot LT 2V Today M79.672 - Pain in left foot XR foot RT 2V Today M79.673 - Pain in unspecified foot Uric Acid Today M10.9 - Gout, unspecified Hemoglobin A1c Today R73.9 - Hyperglycemia, unspecified Medications: Refilled lancets (FreeStyle Lancets) As directed 100 ea 7RF blood sugar diagnostic (FreeStyle Test strips) As directed 50 ea 8RF Coding Level of Care Code Est Pt Level 3 (41586) Diagnoses Foot pain M79.673
== END 2023-08-18 09:16 | disposition home or self-care (01) ==
PROVIDERS: PCP Internal Medicine; Visit Provider Internal Medicine
DX: M79.671 Pain in right foot (principal); M79.672 Pain in left foot
CPT/HCPCS: 99213

== ENCOUNTER 2023-08-18 09:20 | Outpatient (REF) | payer MEDICARE, SELFPAY ==
--- NOTE | ~2023-08-18 | XR_ITS ---
EXAMINATION: XR FOOT LEFT XR FOOT RIGHT CLINICAL INFORMATION: Pain of left foot and right foot. COMPARISON: None TECHNIQUE: Right foot, 3 views and left foot, 3 views. These radiographs were acquired without weightbearing. FINDINGS: Right foot: There is a very small plantar calcaneal enthesophyte. Small osteophytes at 1st - 4th tarsometatarsal joints with nonuniform narrowing of joint spaces and subchondral cystic changes. No acute fracture or malalignment. [id number] degenerative loss of great toe metatarsophalangeal joint space with subchondral sclerosis, subchondral cystic change and osteophyte formation. There is is likely chronic mild degenerative medial subluxation of the proximal phalanx at this joint. Otherwise, metatarsophalangeal joint spaces are well-preserved. There is mild soft tissue prominence lateral to the fifth metatarsal head and there appears to be a small cystic lucency in the fifth metatarsal head. No erosions or periostitis. Left foot: Minimal osteoarthrosis of the first tarsometatarsal joint. Also, osteophytes, subchondral sclerosis and/or subchondral cystic changes are noted at the other tarsometatarsal joints. No acute fracture or malalignment. Mild joint space narrowing and small osteophytes of great toe metatarsophalangeal joint. Mild osteoarthrosis of the great toe interphalangeal joint, as well. There is a mild soft tissue prominence lateral to the fifth metatarsal head. No erosions or periostitis. XR/XR foot LT 2V IMPRESSION: * No acute osseous injury in either foot. 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 * Osteoarthritis of great toe metatarsophalangeal joints (severe on the right and mild on the left).
--- NOTE | ~2023-08-18 | XR_ITS ---
EXAMINATION: XR FOOT LEFT XR FOOT RIGHT CLINICAL INFORMATION: Pain of left foot and right foot. COMPARISON: None TECHNIQUE: Right foot, 3 views and left foot, 3 views. These radiographs were acquired without weightbearing. FINDINGS: Right foot: There is a very small plantar calcaneal enthesophyte. Small osteophytes at 1st - 4th tarsometatarsal joints with nonuniform narrowing of joint spaces and subchondral cystic changes. No acute fracture or malalignment. [id number] degenerative loss of great toe metatarsophalangeal joint space with subchondral sclerosis, subchondral cystic change and osteophyte formation. There is is likely chronic mild degenerative medial subluxation of the proximal phalanx at this joint. Otherwise, metatarsophalangeal joint spaces are well-preserved. There is mild soft tissue prominence lateral to the fifth metatarsal head and there appears to be a small cystic lucency in the fifth metatarsal head. No erosions or periostitis. Left foot: Minimal osteoarthrosis of the first tarsometatarsal joint. Also, osteophytes, subchondral sclerosis and/or subchondral cystic changes are noted at the other tarsometatarsal joints. No acute fracture or malalignment. Mild joint space narrowing and small osteophytes of great toe metatarsophalangeal joint. Mild osteoarthrosis of the great toe interphalangeal joint, as well. There is a mild soft tissue prominence lateral to the fifth metatarsal head. No erosions or periostitis. XR/XR foot RT 2V IMPRESSION: * No acute osseous injury in either foot. 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 * Osteoarthritis of great toe metatarsophalangeal joints (severe on the right and mild on the left).
[2023-08-18 12:06] LABS: Estimated Average Glucose 154 mg/dL
[2023-08-18 12:19] LABS: Uric Acid 4.8 mg/dL (3.4-7.0)
== END 2023-08-18 09:21 | disposition home or self-care (01) ==
LOC: HO.XRAY 09:20
PROVIDERS: PCP Internal Medicine; Visit Provider Internal Medicine
DX: M10.9 Gout, unspecified (principal); R73.9 Hyperglycemia, unspecified; M79.672 Pain in left foot; M79.671 Pain in right foot
CPT/HCPCS: 36415; 73620; 83036; 84550

== ENCOUNTER 2023-10-13 08:49 | Outpatient (AMB) | payer MEDICARE, SELFPAY ==
[2023-10-13 09:00] VITALS: BP 130/70; PULSE 73; BMI 25.5
--- NOTE | 2023-10-13 09:00 | MHC.OFFVIS ---
Vital Signs 10/13/23 09:00 Height 5 ft 8 in Weight 167 lb 8.821 oz BMI 25.5 BP 130/70 Blood Pressure Location Lt brachial Position Sitting Pulse 73 Pulse Source Pulse Oximeter Intake Visit Reasons: 4 mth f/up Intake Note: pt states that he its ding fine. 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 Accompanied by: Spouse Allergies amoxicillin [Augmentin] Allergy (Severe, Verified 08/18/23 08:30) ANAPHYLAXIS clavulanic acid [CLAVULANIC ACID] Allergy (Severe, Verified 08/18/23 08:30) ANAPHYLAXIS Penicillins [PENICILLINS] Allergy (Severe, Verified 08/18/23 08:30) ANAPHYLAXIS sulfamethoxazole [From Bactrim] Allergy (Severe, Verified 08/18/23 08:30) Rash trimethoprim [From Bactrim] Allergy (Severe, Verified 08/18/23 08:30) Rash metronidazole [From FLAGYL] Allergy (Intermediate, Verified 08/18/23 08:30) RASH,NAUSEA VOMITING ciprofloxacin [From CIPRO] Allergy (Mild, Verified 08/18/23 08:30) RASH Iodinated Contrast Media [IV Dye, Iodine Containing] Allergy (Unknown, Verified 08/18/23 08:30) RASH levofloxacin [From LEVAQUIN] Allergy (Unknown, Verified 08/18/23 08:30) RASH metoprolol Allergy (Unknown, Verified 08/18/23 08:30) rash piperacillin [Zosyn] Allergy (Unknown, Verified 08/18/23 08:30) UNK. Sulfa (Sulfonamide Antibiotics) Allergy (Unknown, Verified 08/18/23 08:30) rash tazobactam [Zosyn] Allergy (Unknown, Verified 08/18/23 08:30) UNK. Medication List - Last Reconciled 10/13/23 by Luis Roach MD aspirin 81 mg PO DAILY atorvastatin 40 mg PO DAILY blood sugar diagnostic (FreeStyle Test strips) As directed esomeprazole magnesium 40 mg PO DAILY gabapentin 300 mg PO DAILY lancets (FreeStyle Lancets) As directed mesalamine ER 1.5 grams PO DAILY HPI Comments Details: 78-year-old gentleman here for follow-up. He was previously seen for palpitations which would happen to stressful situations. His Holter monitor showed 4000 monomorphic PVCs. He underwent echocardiography which showed low normal ejection fraction of 50 for 55% he in does no symptoms. Given mildly dropped ejection fraction as well as premature ventricular complexes, I sent him for exercise stress test. He exercised for 1-1/2 minute and stopped due to dyspnea as per the documentation. Patient is saying that he was feeling tired and probably was hypoglycemic and that is why stop but he is unsure. He did not have any chest discomfort. He was changed to a Lexiscan which did not show any perfusion defects. He is returning for follow-up and continues to stay active. He is saying he can walk on a plain surface up to 3 mile. His repeat Holter is showing relatively less number PVCs (1743/24 hours). After discussion we plan cardiac catheterization. Cardiac catheterization showed a proximal LAD 70% stenosis. This was FFR positive at 0.73. After discussion with the patient was started on aspirin and statin. We did not intervene given the lack of symptoms. Unfortunately he had rash on his body 24 hour after the procedure. He was started on prednisone and this persisted for 2-3 weeks. He was also given metoprolol tartrate 25 mg twice a day but developed a rash. He has followed up after cardiac catheterization multiple times and has no symptoms. Clinically stable and denying any exertional symptoms. Also does not feel limited in his day-to-day life. Returns for follow-up. He continues to have no chest discomfort shortness of breath. He did have rectal bleeding and required blood transfusions. He is following with GI closely and is on mesalamine. 03/03/2023: He returns for follow-up. He is denying any chest discomfort or shortness of breath. He is saying that he gets tired by mid day and has to rest. He also feels that he has not been as strong as he was last year. He had rectal bleeding requiring 4 units of blood last year but has not had any further bleeding recently. Has been taking baby aspirin regularly. 07/07/2023: He returns for follow-up. He has been stable and is denying any chest discomfort or significant shortness of breath. Occasionally gets shortness of breath with activities but no consistent symptoms. Taking baby aspirin and tolerating with no recent bleeding. He previously had colitis with bleeding. 10/13/23: He returns for follow-up. Denying any chest discomfort shortness of breath. He continues to work on cars as a hobby with his son and grandson. Overall clinically stable. [facility] Medical History Hepatic abscess Hyperglycemia Hyperlipidemia PVC (premature ventricular contraction) RBBB Stable angina CAD (coronary artery disease) Colitis Diverticulitis GERD (gastroesophageal reflux disease) Surgical History History of colonoscopy Hx of hernia repair History of surgery on arm H/O colectomy Family History Family/Other Prostate cancer CVD (cardiovascular disease) Father CVD (cardiovascular disease) Social History Household Members: Spouse Housing: House Do you presently have visiting nurse or other home services: No Alcohol intake: current Alcohol intake frequency: holidays/special occasions only Comment: Non-skid socks on Patient Tobacco Use Status: Former Tobacco user Quit Date: Tobacco use type: Cigarette e-Cigarette/Vaping Use: Never Used Second Hand Smoke Exposure: No service: Yes Current occupational status: retired Cognitive needs: No Hearing needs: No Vision needs: No Review of Systems Const Denies chills, Denies fatigue, Denies fever(s), Denies frequent falls, Denies weakness, Denies weight gain and Denies weight loss ENT Denies dizziness Card Denies chest pain, Denies leg edema, Denies lightheadedness, Denies palpitations, Denies dyspnea and Denies dyspnea on exertion Resp Denies cough, Denies dyspnea and Denies dyspnea on exertion GI Denies hematochezia Musc Denies abnormal gait, Denies muscle weakness, Denies numbness, Denies radiating pain into limb and Denies tingling Neuro Denies abnormal gait, Denies dizziness, Denies frequent falls, Denies numbness, Denies tingling and Denies weakness Endo Denies fatigue and Denies palpitations Physical Exam Vital Signs: Last Vital Signs Pulse 73 10/13/23 09:00 BP 130/70 10/13/23 09:00 BMI result Body Mass Index 25.5 GENERAL APPEARANCE: in no acute distress. NECK/THYROID: no carotid bruit, no lymphadenopathy. SKIN: no suspicious lesions, warm and dry. HEART: no murmurs, regular rate and rhythm, S1, S2 normal. LUNGS: clear to auscultation bilaterally. ABDOMEN: normal, bowel sounds present, soft, nontender, nondistended. EXTREMITIES: no edema. PERIPHERAL PULSES: equal. NEUROLOGIC: nonfocal, alert and oriented. Assessment & Plan Assessment & Plan (1) Stable angina: Code(s): I20.8 - Other forms of angina pectoris Category: Medical Plan Pleasant 78 year gentleman who is presenting for follow-up. He has background history of colitis with previous bleeding. He has been tolerating baby aspirin. He has LAD stenosis based on cardiac catheterization which was IFR positive in the past. Given bleeding risk we decided to medically treat him which he has been stable for few years at this stage. He also had a severe contrast reaction which was a delayed reaction. He is asking about risk of bleeding with PCI and whether there are any options in case he requires PCI. I have explained to him that we can use different type of contrast and probably due tap for 1 month and then stopped the 2nd antiplatelet agent. Unfortunately a challenge is that he has bled before without taking any antiplatelets and logically speaking the risk is there with dual antiplatelet therapy. Currently he continues to be stable and has no symptoms and is doing what he likes to do. Our decision after discussion is to medically manage as before. Thank you for allowing me to participate in the care of your patient. Please feel free to contact me if you have any questions. Coding Level of Care Code Est Pt Level 4 (42664) Diagnoses Stable angina I20.8
== END 2023-10-13 09:28 | disposition home or self-care (01) ==
PROVIDERS: PCP Internal Medicine; Visit Provider Internal Medicine Cardiovascular Disease
DX: I20.89 Other forms of angina pectoris (principal)
CPT/HCPCS: 99214

== ENCOUNTER → 2023-10-13 08:49 | Outpatient (BNVA) | payer MEDICARE, SELFPAY | PROVIDERS: PCP Internal Medicine; Visit Provider Internal Medicine Cardiovascular Disease | DX: I20.89 Other forms of angina pectoris (principal) | CPT/HCPCS: 99212 ==

== ENCOUNTER 2024-02-23 15:05 | Outpatient (AMB) | payer MEDICARE, SELFPAY ==
[2024-02-23 15:13] VITALS: BP 118/62; PULSE 85; BMI 24.5
--- NOTE | 2024-02-23 15:13 | MHC.OFFVIS ---
Vital Signs 02/23/24 15:13 Height 5 ft 8 in Weight 160 lb 14.999 oz BMI 24.5 BP 118/62 Blood Pressure Location Lt brachial Position Sitting Pulse 85 Pulse Source Monitor Intake Visit Reasons: 4 mth f/up Allergies amoxicillin [Augmentin] Allergy (Severe, Verified 08/18/23 08:30) ANAPHYLAXIS clavulanic acid [CLAVULANIC ACID] Allergy (Severe, Verified 08/18/23 08:30) ANAPHYLAXIS Penicillins [PENICILLINS] Allergy (Severe, Verified 08/18/23 08:30) ANAPHYLAXIS sulfamethoxazole [From Bactrim] Allergy (Severe, Verified 08/18/23 08:30) Rash trimethoprim [From Bactrim] Allergy (Severe, Verified 08/18/23 08:30) Rash metronidazole [From FLAGYL] Allergy (Intermediate, Verified 08/18/23 08:30) RASH,NAUSEA VOMITING ciprofloxacin [From CIPRO] Allergy (Mild, Verified 08/18/23 08:30) RASH Iodinated Contrast Media [IV Dye, Iodine Containing] Allergy (Unknown, Verified 08/18/23 08:30) RASH levofloxacin [From LEVAQUIN] Allergy (Unknown, Verified 08/18/23 08:30) RASH metoprolol Allergy (Unknown, Verified 08/18/23 08:30) rash piperacillin [Zosyn] Allergy (Unknown, Verified 08/18/23 08:30) UNK. Sulfa (Sulfonamide Antibiotics) Allergy (Unknown, Verified 08/18/23 08:30) rash tazobactam [Zosyn] Allergy (Unknown, Verified 08/18/23 08:30) UNK. Medication List - Last Reconciled 02/23/24 by Luis Roach MD aspirin 81 mg PO DAILY atorvastatin 40 mg PO DAILY blood sugar diagnostic (FreeStyle Test strips) As directed esomeprazole magnesium 40 mg PO DAILY gabapentin 300 mg PO DAILY lancets (FreeStyle Lancets) As directed mesalamine ER 1.5 grams PO DAILY HPI Comments Details: 78-year-old gentleman here for follow-up. He was previously seen for palpitations which would happen to stressful situations. His Holter monitor showed 4000 monomorphic PVCs. He underwent echocardiography which showed low normal ejection fraction of 50 for 55% he in does no symptoms. Given mildly dropped ejection fraction as well as premature ventricular complexes, I sent him for exercise stress test. He exercised for 1-1/2 minute and stopped due to dyspnea as per the documentation. Patient is saying that he was feeling tired and probably was hypoglycemic and that is why stop but he is unsure. He did not have any chest discomfort. He was changed to a Lexiscan which did not show any perfusion defects. He is returning for follow-up and continues to stay active. He is saying he can walk on a plain surface up to 3 mile. His repeat Holter is showing relatively less number PVCs (1743/24 hours). After discussion we plan cardiac catheterization. Cardiac catheterization showed a proximal LAD 70% stenosis. This was FFR positive at 0.73. After discussion with the patient was started on aspirin and statin. We did not intervene given the lack of symptoms. Unfortunately he had rash on his body 24 hour after the procedure. He was started on prednisone and this persisted for 2-3 weeks. He was also given metoprolol tartrate 25 mg twice a day but developed a rash. He has followed up after cardiac catheterization multiple times and has no symptoms. Clinically stable and denying any exertional symptoms. Also does not feel limited in his day-to-day life. Returns for follow-up. He continues to have no chest discomfort shortness of breath. He did have rectal bleeding and required blood transfusions. He is following with GI closely and is on mesalamine. 03/03/2023: He returns for follow-up. He is denying any chest discomfort or shortness of breath. He is saying that he gets tired by mid day and has to rest. He also feels that he has not been as strong as he was last year. He had rectal bleeding requiring 4 units of blood last year but has not had any further bleeding recently. Has been taking baby aspirin regularly. 07/07/2023: He returns for follow-up. He has been stable and is denying any chest discomfort or significant shortness of breath. Occasionally gets shortness of breath with activities but no consistent symptoms. Taking baby aspirin and tolerating with no recent bleeding. He previously had colitis with bleeding. 10/13/23: He returns for follow-up. Denying any chest discomfort shortness of breath. He continues to work on cars as a hobby with his son and grandson. Overall clinically stable. 02/23/2024: He is here for follow-up. He had recent COVID infection. He is recovering from that. He is also is getting some left lower abdominal pain off and on. No diarrhea or bloody bowel movement. He is taking baby aspirin regularly. Denying any significant issues otherwise. [facility] Medical History Hepatic abscess Hyperglycemia Hyperlipidemia PVC (premature ventricular contraction) RBBB Stable angina CAD (coronary artery disease) Colitis Diverticulitis GERD (gastroesophageal reflux disease) Surgical History History of colonoscopy Hx of hernia repair History of surgery on arm H/O colectomy Family History Family/Other Prostate cancer CVD (cardiovascular disease) Father CVD (cardiovascular disease) Social History Household Members: Spouse Housing: House Do you presently have visiting nurse or other home services: No Alcohol intake: current Alcohol intake frequency: holidays/special occasions only Comment: Non-skid socks on Patient Tobacco Use Status: Former Tobacco user Tobacco use type: Cigarette e-Cigarette/Vaping Use: Never Used Second Hand Smoke Exposure: No service: Yes Current occupational status: retired Cognitive needs: No Hearing needs: No Vision needs: No Review of Systems Const Denies weakness ENT Denies dizziness Card Denies chest pain, Denies chest pain with activity, Denies syncope, Denies rapid heart rate, Denies pedal edema, Denies edema, Denies leg edema, Denies lightheadedness, Denies palpitations, Denies dyspnea, Denies dyspnea on exertion and Denies orthopnea Resp Denies cough, Denies dyspnea and Denies dyspnea on exertion GI Denies hematochezia and Denies change in stool character Musc Denies abnormal gait, Denies muscle cramps, Denies muscle weakness, Denies numbness, Denies radiating pain into limb and Denies tingling Neuro Denies abnormal gait, Denies dizziness, Denies syncope, Denies numbness, Denies tingling and Denies weakness Endo Denies palpitations Physical Exam Vital Signs: Last Vital Signs Pulse 85 02/23/24 15:13 BP 118/62 02/23/24 15:13 BMI result Body Mass Index 24.5 GENERAL APPEARANCE: in no acute distress. NECK/THYROID: no carotid bruit, no lymphadenopathy. SKIN: no suspicious lesions, warm and dry. HEART: no murmurs, regular rate and rhythm, S1, S2 normal. LUNGS: clear to auscultation bilaterally. ABDOMEN: normal, bowel sounds present, soft, nontender, nondistended. EXTREMITIES: no edema. PERIPHERAL PULSES: equal. NEUROLOGIC: nonfocal, alert and oriented. Office Procedures EKG Details: Sinus rhythm 85 beats per minute, normal axis, right bundle-branch block, QTC 435 milliseconds. [id number], Complete Assessment & Plan Assessment & Plan (1) CAD (coronary artery disease): Code(s): I25.10 - Atherosclerotic heart disease of [place] coronary artery without angina pectoris Category: Medical (2) Stable angina: Code(s): I20.8 - Other forms of angina pectoris Category: Medical (3) RBBB: Code(s): I45.10 - Unspecified right bundle-branch block Category: Medical Plan Pleasant 78 year gentleman who is presenting for follow-up. He has background history of colitis with previous bleeding. He has been tolerating baby aspirin. He has LAD stenosis based on cardiac catheterization which was IFR positive in the past. Given bleeding risk we decided to medically treat him which he has been stable for few years at this stage. He also had a severe contrast reaction which was a delayed reaction. He is recovering from recent COVID-19 infection. He has some postnasal drip at this point. No chest pain or shortness of breath. He is also experiencing some left lower quadrant abdominal pain and is concerned because he has known history of colitis. Abdominal is not tender currently. He is going to discuss with GI about this. We will continue to manage him medically for now. No plan to do any cardiac catheterization unless he presents for unstable symptoms. Thank you for allowing me to participate in the care of your patient. Please feel free to contact me if you have any questions. Coding Level of Care Code Est Pt Level 4 (17576) Diagnoses CAD (coronary artery disease) I25.10 Stable angina I20.8 RBBB I45.10 CPT Codes EKG - CPT: 53062-[id number], Complete ([id number])
== END 2024-02-23 15:39 | disposition home or self-care (01) ==
PROVIDERS: PCP Internal Medicine; Visit Provider Internal Medicine Cardiovascular Disease
DX: I25.118 Atherosclerotic heart disease of native coronary artery with other forms of angina pectoris (principal); I45.10 Unspecified right bundle-branch block
CPT/HCPCS: 93010; 99214

== ENCOUNTER → 2024-02-23 15:05 | Outpatient (BNVA) | payer MEDICARE, SELFPAY | PROVIDERS: PCP Internal Medicine; Visit Provider Internal Medicine Cardiovascular Disease | DX: I25.10 Atherosclerotic heart disease of native coronary artery without angina pectoris (principal); I20.89 Other forms of angina pectoris; I45.10 Unspecified right bundle-branch block | CPT/HCPCS: 93005; 99212 ==

== ENCOUNTER 2024-02-25 09:40 | Outpatient (AMB) | payer MEDICARE, SELFPAY ==
[2024-02-25 09:42] VITALS: BP 128/76; PULSE 65; O2SAT 95; BMI 24.8
--- NOTE | 2024-02-25 09:42 | A.OFFPC_ITS ---
Vital Signs 02/25/24 09:42 Height 5 ft 8 in Weight 163 lb BMI 24.8 BP 128/76 Blood Pressure Location Lt brachial Position Sitting Pulse 65 Pulse Source Pulse Oximeter Pulse Oximetry (%) 95 Oxygen Delivery Method Room Air Intake Visit Reasons: Rsched from 02/15 - 6M Follow Up Closet Builder Required: No Accompanied by: Self / Same As Patient Allergies amoxicillin [Augmentin] Allergy (Severe, Verified 02/25/24 09:42) ANAPHYLAXIS clavulanic acid [CLAVULANIC ACID] Allergy (Severe, Verified 02/25/24 09:42) ANAPHYLAXIS Penicillins [PENICILLINS] Allergy (Severe, Verified 02/25/24 09:42) ANAPHYLAXIS sulfamethoxazole [From Bactrim] Allergy (Severe, Verified 02/25/24 09:42) Rash trimethoprim [From Bactrim] Allergy (Severe, Verified 02/25/24 09:42) Rash metronidazole [From FLAGYL] Allergy (Intermediate, Verified 02/25/24 09:42) RASH,NAUSEA VOMITING ciprofloxacin [From CIPRO] Allergy (Mild, Verified 02/25/24 09:42) RASH Iodinated Contrast Media [IV Dye, Iodine Containing] Allergy (Unknown, Verified 02/25/24 09:42) RASH levofloxacin [From LEVAQUIN] Allergy (Unknown, Verified 02/25/24 09:42) RASH metoprolol Allergy (Unknown, Verified 02/25/24 09:42) rash piperacillin [Zosyn] Allergy (Unknown, Verified 02/25/24 09:42) UNK. Sulfa (Sulfonamide Antibiotics) Allergy (Unknown, Verified 02/25/24 09:42) rash tazobactam [Zosyn] Allergy (Unknown, Verified 02/25/24 09:42) UNK. Medication List - Last Reconciled 02/25/24 by Tawanda Yu MD aspirin 81 mg PO DAILY atorvastatin 40 mg PO DAILY blood sugar diagnostic (FreeStyle Test strips) As directed esomeprazole magnesium 40 mg PO DAILY gabapentin 300 mg PO DAILY lancets (FreeStyle Lancets) As directed mesalamine ER 1.5 grams PO DAILY Tobacco use date assessed: 08/18/23 Fall risk assessment: No Falls in past year Last assessed Fall Risk: 02/25/24 Dental Screening Dental Screen Date: 08/18/23 HPI Rsched from 02/15 - 6M Follow Up HPI Details hyperlipidemia on rx; doing well; due for labs [facility] Medical History Hepatic abscess Hyperglycemia Hyperlipidemia PVC (premature ventricular contraction) RBBB Stable angina CAD (coronary artery disease) Colitis Diverticulitis GERD (gastroesophageal reflux disease) Surgical History History of colonoscopy Hx of hernia repair History of surgery on arm H/O colectomy Family History Family/Other Prostate cancer CVD (cardiovascular disease) Father CVD (cardiovascular disease) Social History Household Members: Spouse Housing: House Do you presently have visiting nurse or other home services: No Alcohol intake: current Alcohol intake frequency: holidays/special occasions only Comment: Non-skid socks on Patient Tobacco Use Status: Former Tobacco user Tobacco use type: Cigarette e-Cigarette/Vaping Use: Never Used Second Hand Smoke Exposure: No service: Yes Current occupational status: retired Cognitive needs: No Hearing needs: No Vision needs: No Questionnaire PHQ-9 Over the last 2 weeks, how often have you been bothered by any of the following problems? 1. Little interest or pleasure in doing things: not at all 2. Feeling down, depressed, or hopeless: not at all 3. Trouble falling or staying asleep, or sleeping too much: not at all 4. Feeling tired or having little energy: not at all 5. Poor appetite or overeating: not at all 6. Feeling bad about yourself - or that you are a failure or have let yourself or your family down: not at all 7. Trouble concentrating on things, such as reading the newspaper or watching television: not at all 8. Moving or speaking so slowly that other people could have noticed. Or the opposite - being so fidgety or restless that you have been moving around a lot more than usual: not at all 9. Thoughts that you would be better off or of hurting yourself in some way: not at all Total score: 0 Depression Screening Interpretation: Negative Depression Screening Done: Yes Source: Developed by Iam Moctezumaet B.W. Tony, Jovanny Browning and colleagues, with an educational jamaal from [employer]. Thrive Questionnaire Date Thrive assessed: 08/18/23 AUDIT C Alcohol Use Questionnaire (AUDIT-C) 1. How often do you have a drink containing alcohol?: Never Total Score: 0 ALEJANDAR-7 AMB Questionnaire ALEJANDRA-7 Date ALEJANDRA - 7 assessed: 08/18/23 Source: Developed by Drs. Musa Wang, Susan Jimenez, Jovanny Browning and colleagues, with an educational jamaal from [employer]. Review of Systems Const Denies chills, Denies headache(s) and Denies weight loss ENT Denies headache(s) Card Denies chest pain, Denies syncope, Denies irregular heart rhythm and Denies dyspnea Resp Denies chest congestion, Denies cough and Denies dyspnea GI Denies abdominal pain, Denies change in stool character, Denies nausea and Denies vomiting Musc Denies deformity and Denies joint swelling Neuro Denies syncope and Denies headache(s) Physical exam (Primary Care) Vital Signs: Last Vital Signs Pulse 65 02/25/24 09:42 BP 128/76 02/25/24 09:42 Pulse Ox 95 02/25/24 09:42 Oxygen Delivery Method Room Air 02/25/24 09:42 BMI result Body Mass Index 24.8 Tobacco/Smoking Status: Tobacco use Status Tobacco use date assessed 08/18/23 02/25/24 09:46 Patient Tobacco Use Status Former Tobacco user 02/25/24 09:46 Tobacco use type Cigarette 02/25/24 09:46 e-Cigarette/Vaping Use Never Used 02/25/24 09:46 PHQ-9: PHQ-9 Score PHQ-9: Total score 0 02/25/24 09:46 Depression Screening Interpretation: Negative Thrive Assessment: Date of Thrive Assessment Date Thrive assessed 08/18/23 02/25/24 09:46 Const General: cooperative, comfortable, no acute distress and alert Neck Neck: Yes no lymphadenopathy Thyroid: Thyroid normal Resp Effort & Inspection: normal respiratory effort Auscultation: clear to auscultation bilaterally Percussion: percussion normal Cardio Jugular venous distension: no JVD Palpation: normal PMI Rate: regular rate Rhythm: regular rhythm Heart sounds: S1 normal heart sound present and S2 normal heart sound present GI Inspection: Yes normal to inspection Palpation (GI): No hepatosplenomegaly present Skin General skin exam: no rashes or lesions noted Extrem General: Yes no clubbing, cyanosis or edema Assessment and Plan Assessment & Plan (1) Hyperlipidemia: Code(s): E78.5 - Hyperlipidemia, unspecified Plan: stable; do labs Orders: Orders Lipid Panel Today Z13.220 - Encounter for screening for lipoid disorders Complete Blood Count Auto Diff Today Z13.0 - Encounter for screening for diseases of the blood and blood-forming organs and certain disorders involving the immune mechanism Comprehensive Frost. Panel Fast Today Z13.9 - Encounter for screening, unspecified Hemoglobin A1c Today R73.9 - Hyperglycemia, unspecified Coding Level of Care Code Est Pt Level 3 (91854) Diagnoses Hyperlipidemia E78.5
== END 2024-02-25 10:05 | disposition home or self-care (01) ==
PROVIDERS: PCP Internal Medicine; Visit Provider Internal Medicine
DX: E78.5 Hyperlipidemia, unspecified (principal)
CPT/HCPCS: 99213

== ENCOUNTER 2024-02-29 06:17 | Outpatient (REF) | payer MEDICARE, SELFPAY ==
[2024-02-29 06:38] LABS: MANUAL DIFF FLAG NO
[2024-02-29 07:31] LABS: Basophils Absolute Auto 0.1 X10*3/uL (0.0-0.2); Basophils Percent Auto 0.7 % (0-2); Eosinophils Absolute Auto 0.2 X10*3/uL (0.0-0.4); Eosinophils Percent Auto 2.1 % (0-4); Hematocrit 44.4 % (42.0-52.0); Hemoglobin 14.3 g/dl (14.0-18.0); Imm Gran Abs Auto 0.06 X10*3/uL (0.00-0.03); Imm Gran Pct Auto 0.8 % (0.0-0.4); Lymphocytes Absolute Auto 1.8 X10*3/uL (1.2-4.9); Lymphocytes Percent Auto 25.6 % (20-40); Mean Corpuscular HGB Conc 32.2 g/dl (31.0-36.0); Mean Corpuscular Hemoglobin 28.4 pg (27.0-33.0); Mean Corpuscular Volume 88.3 fL (80.0-98.0); Mean Platelet Volume 9.4 fL (9.4-12.4); Monocytes Absolute Auto 0.7 X10*3/uL (0.1-1.2); Neutrophils Absolute Auto 4.4 x10*3/uL (2.0-8.3); Neutrophils Percent Auto 60.8 % (45-73); Platelet Count 316 X10*3/uL (160-400); Red Blood Count 5.03 X10*6/uL (4.60-5.80); Red Cell Distribution Width 14.5 % (11.0-16.0); White Blood Count 7.2 X10*3/uL (4.8-10.8)
[2024-02-29 07:50] LABS: Estimated Average Glucose 169 mg/dL; Hemoglobin A1c % 7.5 % (<6.0)
[2024-02-29 08:13] LABS: Alanine Aminotransferase 24 U/L (0-40); Albumin Level 3.9 g/dL (3.5-5.0); Alkaline Phosphatase 83 U/L (39-117); Anion Gap 12 (12-20); Aspartate Amino Transferase 21 U/L (5-37); Bilirubin Total 0.7 mg/dL (0.0-1.0); Blood Urea Nitrogen 19 mg/dL (9-16); Calcium 9.3 mg/dL (8.4-10.2); Carbon Dioxide 27 mmol/L (22-29); Chloride 105 mmol/L (96-108); Cholesterol 105 mg/dL (<200); Estimated Glomerular Filt Rate > 60; Glucose Fasting 125 mg/dL (60-99); HDL Cholesterol 37 mg/dL (>40); LDL Cholesterol Calculated 49 mg/dL (<100); Potassium 4.3 mmol/L (3.3-5.1); Sodium 140 mmol/L (135-145); Total Protein 6.8 g/dL (6.5-8.0); Triglycerides 96 mg/dL (<150)
== END 2024-02-29 06:18 | disposition home or self-care (01) ==
LOC: HO.LAB 06:17
PROVIDERS: PCP Internal Medicine; Visit Provider Internal Medicine
DX: Z13.9 Encounter for screening, unspecified (principal); Z13.220 Encounter for screening for lipoid disorders; Z13.0 Encounter for screening for diseases of the blood and blood-forming organs and certain disorders involving the immune mechanism; R73.9 Hyperglycemia, unspecified
CPT/HCPCS: 36415; 80053; 80061; 83036; 85025

== ENCOUNTER 2024-04-11 14:06 | Outpatient (AMB) | payer MEDICARE, SELFPAY ==
--- NOTE | 2024-04-11 14:21 | MHC.OFFWIV ---
Intake Vital Signs 04/11/24 14:23 Height 5 ft 8 in Weight 166 lb BMI 25.2 BP 128/80 Blood Pressure Location Lt brachial Position Sitting Pulse 68 Pulse Source Pulse Oximeter Pulse Oximetry (%) 94 Oxygen Delivery Method Room Air Intake Visit Reasons: EP Rt knee injury Intake Note: Patient here for right knee injury about 1 month ago and pain has worsened since than. Patient Tobacco Use Status: Former Tobacco user Allergies amoxicillin [Augmentin] Allergy (Severe, Verified 04/11/24 14:23) ANAPHYLAXIS clavulanic acid [CLAVULANIC ACID] Allergy (Severe, Verified 04/11/24 14:23) ANAPHYLAXIS Penicillins [PENICILLINS] Allergy (Severe, Verified 04/11/24 14:23) ANAPHYLAXIS sulfamethoxazole [From Bactrim] Allergy (Severe, Verified 04/11/24 14:23) Rash trimethoprim [From Bactrim] Allergy (Severe, Verified 04/11/24 14:23) Rash metronidazole [From FLAGYL] Allergy (Intermediate, Verified 04/11/24 14:23) RASH,NAUSEA VOMITING ciprofloxacin [From CIPRO] Allergy (Mild, Verified 04/11/24 14:23) RASH Iodinated Contrast Media [IV Dye, Iodine Containing] Allergy (Unknown, Verified 04/11/24 14:23) RASH levofloxacin [From LEVAQUIN] Allergy (Unknown, Verified 04/11/24 14:23) RASH metoprolol Allergy (Unknown, Verified 04/11/24 14:23) rash piperacillin [Zosyn] Allergy (Unknown, Verified 04/11/24 14:23) UNK. Sulfa (Sulfonamide Antibiotics) Allergy (Unknown, Verified 04/11/24 14:23) rash tazobactam [Zosyn] Allergy (Unknown, Verified 04/11/24 14:23) UNK. Do you need a note to return to daycare/school/sports/work: No HPI HPI Comments History of Present Illness Details Patient is a 78-year-old male complaining of right knee pain that is getting worse over the last month. He tells me that approximately 1 month ago, he was pushing a car when he heard a pop in his knee and he had pain. He states that pain was tolerable and he has been using a knee brace and ice and heat with some temporary improvement in his symptoms. He states the pain is worse when he goes up and down the stairs and it is mostly behind his knee and it sometimes radiates down the side of his leg towards his foot. He tells me he has tried resting it but that it is getting worse overall. He has been taking Excedrin because he has a history of GI bleed so he tries not to take any NSAIDs. But the Excedrin does not seem to be helping. [facility] Medical History Hepatic abscess Hyperglycemia Hyperlipidemia PVC (premature ventricular contraction) RBBB Stable angina CAD (coronary artery disease) Colitis Diverticulitis GERD (gastroesophageal reflux disease) Surgical History History of colonoscopy Hx of hernia repair History of surgery on arm H/O colectomy Family History Family/Other Prostate cancer CVD (cardiovascular disease) Father CVD (cardiovascular disease) Social History Household Members: Spouse Housing: House Do you presently have visiting nurse or other home services: No Alcohol intake: current Alcohol intake frequency: holidays/special occasions only Comment: Non-skid socks on Patient Tobacco Use Status: Former Tobacco user Tobacco use type: Cigarette e-Cigarette/Vaping Use: Never Used Second Hand Smoke Exposure: No service: Yes Current occupational status: retired Cognitive needs: No Hearing needs: No Vision needs: No Review of Systems Const All systems reviewed & are unremarkable except as noted in HPI and below Physical Exam Vital Signs: Last Vital Signs Pulse 68 04/11/24 14:23 BP 128/80 04/11/24 14:23 Pulse Ox 94 04/11/24 14:23 Oxygen Delivery Method Room Air 04/11/24 14:23 BMI result Body Mass Index 25.2 Const General: cooperative, healthy appearing, comfortable and no acute distress Orientation/consciousness: patient oriented x3 Limitations: no limitations HEENT Head: Yes normal to inspection Resp Effort & Inspection: normal respiratory effort and able to speak in complete sentences Neuro General: patient oriented x3 Extrem Right lower extremity: knee Details: normal to inspection, tenderness (posterior knee), swelling (lateral knee, slight swelling), normal ROM and knee ligament exam normal; no abrasions, no lacerations, no ecchymosis, no deformity and no unusual warmth Assessment & Plan Assessment & Plan (1) Hayden's cyst of knee: Code(s): M71.20 - Synovial cyst of popliteal space [Hayden], unspecified knee Qualifiers: Laterality: right Qualified Code(s): M71.21 - Synovial cyst of popliteal space [Hayden], right knee Plan: Most likely a diagnosis is a Hayden's cyst, we will do a 10 day taper of prednisone, Mark wrapped knee for comfort, recommended continuing to use ice behind the knee. Sent referral for orthopedics for patient to be followed up after he returns from traveling on May 02, recommended he can cancel the appointment if resolution in his symptoms we will know it was a Hayden's cyst. If his symptoms get worse, he should follow up with that appointment for possible meniscus injury. Plan see above Orders: Referrals Orthopedics Referral M71.20 - Synovial cyst of popliteal space [Hayden], unspecified knee Medications: New prednisone On days 1-3, take 2 tablets with breakfast. On days 4-6 take 1 tablet with breakfast, on days 7-10 take 0.5 tablet with breakfast 20 mg PO DAILY 11 tabs 0RF Coding Level of Care Code Est Pt Level 4 (52067) Diagnoses Synovial cyst of right knee M71.21 Laterality: right
[2024-04-11 14:23] VITALS: BP 128/80; PULSE 68; O2SAT 94; BMI 25.2
== END 2024-04-11 15:02 | disposition home or self-care (01) ==
PROVIDERS: PCP Internal Medicine; Visit Provider Physician Assistant
DX: M71.21 Synovial cyst of popliteal space [Baker], right knee (principal)

== ENCOUNTER → 2024-04-11 14:06 | Outpatient (BNVA) | payer MEDICARE, SELFPAY | PROVIDERS: PCP Internal Medicine; Visit Provider Physician Assistant | DX: M71.21 Synovial cyst of popliteal space [Baker], right knee (principal) | CPT/HCPCS: 99212 ==

== ENCOUNTER 2024-05-10 07:47 | Outpatient (REF) | payer MEDICARE, SELFPAY | END 2024-05-10 07:48 | disposition home or self-care (01) | LOC: HO.HOSX 07:47 | PROVIDERS: PCP Internal Medicine; Visit Provider Physician Assistant | DX: M25.562 Pain in left knee (principal); M17.11 Unilateral primary osteoarthritis, right knee; S76.311A Strain of muscle, fascia and tendon of the posterior muscle group at thigh level, right thigh, initial encounter | CPT/HCPCS: 73560; 73562; 99202 ==

== ENCOUNTER 2024-05-10 07:47 | Outpatient (AMB) | payer MEDICARE, SELFPAY ==
[2024-05-10 07:54] VITALS: BMI 25.2
--- NOTE | 2024-05-10 07:54 | MHC.OFFVIS ---
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 Patient reports he does not believe this is a Hayden's cyst. He states early February, he was walking and heard a pop behind his knee. Walking, climbing, and using stairs. He has been taking Tylenol PRN, wearing a knee brace, and using Biofreeze with some relief. Denies prior injuries or surgeries to the right knee. Allergies amoxicillin [Augmentin] Allergy (Severe, Verified 05/10/24 07:54) ANAPHYLAXIS clavulanic acid [CLAVULANIC ACID] Allergy (Severe, Verified 05/10/24 07:54) ANAPHYLAXIS Penicillins [PENICILLINS] Allergy (Severe, Verified 05/10/24 07:54) ANAPHYLAXIS sulfamethoxazole [From Bactrim] Allergy (Severe, Verified 05/10/24 07:54) Rash trimethoprim [From Bactrim] Allergy (Severe, Verified 05/10/24 07:54) Rash metronidazole [From FLAGYL] Allergy (Intermediate, Verified 05/10/24 07:54) RASH,NAUSEA VOMITING ciprofloxacin [From CIPRO] Allergy (Mild, Verified 05/10/24 07:54) RASH Iodinated Contrast Media [IV Dye, Iodine Containing] Allergy (Unknown, Verified 05/10/24 07:54) RASH levofloxacin [From LEVAQUIN] Allergy (Unknown, Verified 05/10/24 07:54) RASH metoprolol Allergy (Unknown, Verified 05/10/24 07:54) rash piperacillin [Zosyn] Allergy (Unknown, Verified 05/10/24 07:54) UNK. Sulfa (Sulfonamide Antibiotics) Allergy (Unknown, Verified 05/10/24 07:54) rash tazobactam [Zosyn] Allergy (Unknown, Verified 05/10/24 07:54) UNK. 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 He states that he was using his back to push a car into the garage when he felt a strain behind the leg and a pop into the right knee. He states that he did have some significant pain thereafter and was seen in urgent care. Urgent care suggested he had a Hayden's cyst and referred him to our office for ortho eval. He denies specific pain in the knee. He does have pain with stairs but this pain is located directly behind the knee and the hamstring muscle. [facility] Medical History Hepatic abscess Hyperglycemia Hyperlipidemia PVC (premature ventricular contraction) RBBB Stable angina CAD (coronary artery disease) Colitis Diverticulitis GERD (gastroesophageal reflux disease) Surgical History History of colonoscopy Hx of hernia repair History of surgery on arm H/O colectomy Family History Family/Other Prostate cancer CVD (cardiovascular disease) Father CVD (cardiovascular disease) Social History Household Members: Spouse Housing: House Do you presently have visiting nurse or other home services: No Alcohol intake: current Alcohol intake frequency: holidays/special occasions only Comment: Non-skid socks on Patient Tobacco Use Status: Former Tobacco user Tobacco use type: Cigarette e-Cigarette/Vaping Use: Never Used Second Hand Smoke Exposure: No service: Yes Current occupational status: retired Cognitive needs: No Hearing needs: No Vision needs: No Review of Systems Const All systems reviewed & are unremarkable except as noted in HPI and below Physical Exam Vital Signs: BMI result Body Mass Index 25.2 Const General: cooperative and no acute distress Orientation/consciousness: patient oriented x3 Resp Effort & Inspection: normal respiratory effort and able to speak in complete sentences Cardio Peripheral pulses: Peripheral pulses 2+ throughout Neuro General: patient oriented x3 Extrem Other: Right knee is normal to inspection. No joint effusion. No tenderness over the medial or lateral joint space. Tenderness along the posterior aspect of the right leg into the hamstring. No muscle defect. He does have pain with hamstring flexion against resistance. No pain with straight leg raise against resistance. Neurovascularly intact. Assessment & Plan Assessment & Plan (1) Right hamstring muscle strain: Code(s): S76.311A - Strain of muscle, fascia and tendon of the posterior muscle group at thigh level, right thigh, initial encounter Category: Medical Plan: Reassurance given that this is likely a hamstring strain. I do recommend a course of physical therapy to work on scar tissue release and strengthening work. He should increase activities as tolerated and if symptoms persist or continue he should contact our office otherwise follow up as needed. Orders: Orders XR knee RT 3V Today M17.11 - Unilateral primary osteoarthritis, right knee XR knee LT 1V Today M25.562 - Pain in left knee PT Evaluation and Treatment Today S76.311A - Strain of muscle, fascia and tendon of the posterior muscle group at thigh level, right thigh, initial encounter Coding Level of Care Code New Pt Level 3 (34769) Complex EM visit Add On G2211 Diagnoses Right hamstring muscle strain S76.311A
== END 2024-05-10 08:23 | disposition home or self-care (01) ==
PROVIDERS: PCP Internal Medicine; Visit Provider Physician Assistant
DX: S76.311A Strain of muscle, fascia and tendon of the posterior muscle group at thigh level, right thigh, initial encounter (principal)
CPT/HCPCS: 99203; G2211

== ENCOUNTER 2024-06-19 07:00 | Outpatient (RCR) | payer MEDICARE, SELFPAY ==
--- NOTE | 2024-05-26 07:35 | MHC.PT.EP ---
[facility] [place] Office [place] Office [place] Office [address]afson [address] [phone] F: [phone] F: [phone] F: [phone] F: [phone] Physical Therapy Plan of Care Date of Evaluation: 05/26/24 Date of Surgery: n/a Diagnosis: R hamstring strain Assessment: Patient is a 78 year old male presenting to PT with complaints of pain in his R hamstring. Pt reports onset of pain began 02/20/2024 due to pushing a car. He presents today with impairments in pain, ROM, hip strength, hs strength. 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 Clinical presentation today is most consistent with signs and sx associated with R hamstring strain and pt will benefit from skilled PT 2 week x 4 weeks to address the following problems and impairments noted upon evaluation: pain, ROM, hip strength, hs strength. These problems limit the patient with the following functional activities: ambulating, stair negotiation, ADLs, hobby. The prescribed treatment plan of care is medically necessary. Co-morbidities of PVC, stable angina were identified and taken into considerations of plan of care. Pt was educated on HEP, role of PT, prognosis, POC. Frequency and Duration: The patient will be seen 2 x week x 4 weeks Short Term Goals: Pt will demonstrate improved knee ROM to equal B in 2 weeks. Pt will demonstrate improved knee MMT flexion strength to 5/5 in 2 weeks. Pt will demonstrate improved hip MMT strength by 1/3 grade in 2 weeks. District Fire Management Officer Goals: Pt will demonstrate improved LEFI score by 9 point sin 4 weeks for improved functional mobility. Pt will demonstrate ability to negotiate stairs with min to no pain in 4 weeks for return to PLOF. Pt will demonstrate ability to complete ADLs with min to no pain in 4 weeks for return to PLOF. Treatment Plan: Modalities to reduce pain, spasms and effusion. Manual therapy to restore motion and function. Therapeutic exercise to improve strength and flexibility. Neuromuscular re-education for posture and balance. Therapeutic activities to return to functional activities of daily living. Electronically signed by: Shanti Sheffield, PT, DPT, ATC Please sign and return to therapist. Thank you for your referral.
--- NOTE | 2024-06-19 07:40 | MHC.PT.DC ---
[facility] [place] Office [place] Office [place] Office [address] [phone] F: [phone] F: [phone] F: [phone] F: [phone] Physical Therapy Discharge Report Diagnosis: R hamstring strain Date of Surgery: n/a Date of Evaluation: 05/26/24 Date of Discharge: 06/19/24 Treatments to Date: 5 Cancellations to Date: 0 No Shows to Date: 0 Discharge Status: Achieved Goals Improved Function Independent with HEP Discharge Summary: 06/19/2024: Pt has made good progress since start of care. He feels stiffness at times but this does not limit him functionally. He is independent and compliant with his HEP and understands the importance of intermediate accountant continuation of it. At this time max benefits of PT have been provided and skilled PT is no longer indicated. He is in agreement with d/c today. Electronically signed by: Shanti Sheffield, PT, DPT, ATC Please sign and return to therapist. Thank you for your referral.
== END 2024-06-19 07:41 | disposition home or self-care (01) ==
LOC: HO.PTCHIC 07:00
PROVIDERS: PCP Internal Medicine; Visit Provider Physician Assistant
DX: S76.311D Strain of muscle, fascia and tendon of the posterior muscle group at thigh level, right thigh, subsequent encounter (principal)
CPT/HCPCS: 97110; 97161

== ENCOUNTER 2024-07-19 09:16 | Outpatient (AMB) | payer MEDICARE, SELFPAY ==
[2024-07-19 09:19] VITALS: BP 110/60; PULSE 58; BMI 25.5
--- NOTE | 2024-07-19 09:19 | MHC.OFFVIS ---
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 Accompanied by: Spouse Allergies amoxicillin [Augmentin] Allergy (Severe, Verified 05/10/24 07:54) ANAPHYLAXIS clavulanic acid [CLAVULANIC ACID] Allergy (Severe, Verified 05/10/24 07:54) ANAPHYLAXIS Penicillins [PENICILLINS] Allergy (Severe, Verified 05/10/24 07:54) ANAPHYLAXIS sulfamethoxazole [From Bactrim] Allergy (Severe, Verified 05/10/24 07:54) Rash trimethoprim [From Bactrim] Allergy (Severe, Verified 05/10/24 07:54) Rash metronidazole [From FLAGYL] Allergy (Intermediate, Verified 05/10/24 07:54) RASH,NAUSEA VOMITING ciprofloxacin [From CIPRO] Allergy (Mild, Verified 05/10/24 07:54) RASH Iodinated Contrast Media [IV Dye, Iodine Containing] Allergy (Unknown, Verified 05/10/24 07:54) RASH levofloxacin [From LEVAQUIN] Allergy (Unknown, Verified 05/10/24 07:54) RASH metoprolol Allergy (Unknown, Verified 05/10/24 07:54) rash piperacillin [Zosyn] Allergy (Unknown, Verified 05/10/24 07:54) UNK. Sulfa (Sulfonamide Antibiotics) Allergy (Unknown, Verified 05/10/24 07:54) rash tazobactam [Zosyn] Allergy (Unknown, Verified 05/10/24 07:54) UNK. Medication List - Last Reconciled 07/19/24 by Luis Roach MD aspirin 81 mg PO DAILY atorvastatin 40 mg PO DAILY blood sugar diagnostic (FreeStyle Test strips) As directed esomeprazole magnesium 40 mg PO DAILY gabapentin 300 mg PO DAILY lancets (FreeStyle Lancets) As directed mesalamine ER 1.5 grams PO DAILY HPI Comments Details: 78-year-old gentleman here for follow-up. He was previously seen for palpitations which would happen to stressful situations. His Holter monitor showed 4000 monomorphic PVCs. He underwent echocardiography which showed low normal ejection fraction of 50 for 55% he in does no symptoms. Given mildly dropped ejection fraction as well as premature ventricular complexes, I sent him for exercise stress test. He exercised for 1-1/2 minute and stopped due to dyspnea as per the documentation. Patient is saying that he was feeling tired and probably was hypoglycemic and that is why stop but he is unsure. He did not have any chest discomfort. He was changed to a Lexiscan which did not show any perfusion defects. He is returning for follow-up and continues to stay active. He is saying he can walk on a plain surface up to 3 mile. His repeat Holter is showing relatively less number PVCs (1743/24 hours). After discussion we plan cardiac catheterization. Cardiac catheterization showed a proximal LAD 70% stenosis. This was FFR positive at 0.73. After discussion with the patient was started on aspirin and statin. We did not intervene given the lack of symptoms. Unfortunately he had rash on his body 24 hour after the procedure. He was started on prednisone and this persisted for 2-3 weeks. He was also given metoprolol tartrate 25 mg twice a day but developed a rash. He has followed up after cardiac catheterization multiple times and has no symptoms. Clinically stable and denying any exertional symptoms. Also does not feel limited in his day-to-day life. Returns for follow-up. He continues to have no chest discomfort shortness of breath. He did have rectal bleeding and required blood transfusions. He is following with GI closely and is on mesalamine. 03/03/2023: He returns for follow-up. He is denying any chest discomfort or shortness of breath. He is saying that he gets tired by mid day and has to rest. He also feels that he has not been as strong as he was last year. He had rectal bleeding requiring 4 units of blood last year but has not had any further bleeding recently. Has been taking baby aspirin regularly. 07/07/2023: He returns for follow-up. He has been stable and is denying any chest discomfort or significant shortness of breath. Occasionally gets shortness of breath with activities but no consistent symptoms. Taking baby aspirin and tolerating with no recent bleeding. He previously had colitis with bleeding. 10/13/23: He returns for follow-up. Denying any chest discomfort shortness of breath. He continues to work on cars as a hobby with his son and grandson. Overall clinically stable. 02/23/2024: He is here for follow-up. He had recent COVID infection. He is recovering from that. He is also is getting some left lower abdominal pain off and on. No diarrhea or bloody bowel movement. He is taking baby aspirin regularly. Denying any significant issues otherwise. 07/19/2024: He is here for follow-up. Denying any chest discomfort. He had hamstring injury on the right leg and has slowed down further. He feels tired easily compared to before. Denying any significant shortness of breath. No recent bleeding. Taking baby aspirin regularly. [facility] Medical History Hepatic abscess Hyperglycemia Hyperlipidemia PVC (premature ventricular contraction) RBBB Stable angina CAD (coronary artery disease) Colitis Diverticulitis GERD (gastroesophageal reflux disease) Surgical History History of colonoscopy Hx of hernia repair History of surgery on arm H/O colectomy Family History Family/Other Prostate cancer CVD (cardiovascular disease) Father CVD (cardiovascular disease) Social History Household Members: Spouse Housing: House Do you presently have visiting nurse or other home services: No Alcohol intake: current Alcohol intake frequency: holidays/special occasions only Comment: Non-skid socks on Patient Tobacco Use Status: Former Tobacco user Tobacco use type: Cigarette e-Cigarette/Vaping Use: Never Used Second Hand Smoke Exposure: No service: Yes Current occupational status: retired Cognitive needs: No Hearing needs: No Vision needs: No Review of Systems Const Denies chills, Denies fatigue, Denies fever(s), Denies frequent falls, Denies weakness, Denies weight gain and Denies weight loss ENT Denies dizziness Card Denies chest pain, Denies leg edema, Denies lightheadedness, Denies palpitations, Denies dyspnea and Denies dyspnea on exertion Resp Denies cough, Denies dyspnea and Denies dyspnea on exertion GI Denies hematochezia Musc Denies abnormal gait, Denies muscle weakness, Denies numbness, Denies radiating pain into limb and Denies tingling Neuro Denies abnormal gait, Denies dizziness, Denies frequent falls, Denies numbness, Denies tingling and Denies weakness Endo Denies fatigue and Denies palpitations Physical Exam Vital Signs: Last Vital Signs Pulse 58 07/19/24 09:19 BP 110/60 07/19/24 09:19 BMI result Body Mass Index 25.5 GENERAL APPEARANCE: in no acute distress. NECK/THYROID: no carotid bruit. SKIN: no suspicious lesions, warm and dry. HEART: no murmurs, regular rate and rhythm, S1, S2 normal. LUNGS: clear to auscultation bilaterally. ABDOMEN: normal, bowel sounds present, soft, nontender, nondistended. EXTREMITIES: no edema. PERIPHERAL PULSES: equal. NEUROLOGIC: nonfocal, alert and oriented. Assessment & Plan Assessment & Plan (1) Stable angina: Code(s): I20.8 - Other forms of angina pectoris Category: Medical (2) RBBB: Code(s): I45.10 - Unspecified right bundle-branch block Category: Medical (3) CAD (coronary artery disease): Code(s): I25.10 - Atherosclerotic heart disease of [place] coronary artery without angina pectoris Category: Medical Plan Pleasant 78 year gentleman who is presenting for follow-up. He has background history of colitis with previous bleeding. He has been tolerating baby aspirin. He has LAD stenosis based on cardiac catheterization which was IFR positive in the past. Given bleeding risk we decided to medically treat him which he has been stable for few years at this stage. He also had a severe contrast reaction which was a delayed reaction. He had hamstring injury recently and is recovering from that. He notices that he gets tired easily compared to before. Denying chest discomfort or any significant shortness of breath though. I have explained to him that there is risk with procedure for him with delayed contrast reaction previously as well as bleeding concerns. We discussed about doing repeat stress testing but currently he has hamstring injury and I will let him recover from that. Once he is stable we will do exercise tolerance test. High threshold to take him for any angiography which I have explained to him and he is agreeable. If he had any unstable symptoms like shortness of breath or chest discomfort then obviously he will need invasive assessment. Currently he is not giving any such symptoms and we will continue to medically treat. Thank you for allowing me to participate in the care of your patient. Please feel free to contact me if you have any questions. Medications: New aspirin (Adult Aspirin Regimen) 81 mg PO DAILY 90 tabs 3RF Coding Level of Care Code Est Pt Level 4 (81751) Diagnoses Stable angina I20.8 RBBB I45.10 CAD (coronary artery disease) I25.10
--- OUTSIDE RECORDS SUMMARY | 2024-07-19 10:46 | XMS_ITS | Patient Health Record ---
Author Organization [facility] Address [address] [place] [phone] Care Team Providers Care Member Of Parliament Name Role Phone Gigi CORTEZ, Tawanda Primary Care Provider Shantanu Gonsales Jr Unavailable ALLERGIES Allergen (clinical drug ingredient) Drug/Non Drug Allergy documented on EMR Reaction Allergy Type Onset Date Status metronidazole Flagyl Unknown Drug Allergy Act mehreen ciprofloxacin Cipro Unknown Drug Allergy Act mehreen sulfamethoxazole / trimethoprim Bactrim Unknown Drug Allergy Active amoxicillin / clavulanate Augmentin Unknown Drug Allergy Active CT Scan Dye (uncoded) Unknown Allergy Active Penicillin Unknown Drug Allergy Active piperacillin / tazobactam Zosyn Unknown Drug Allergy Active trimethoprim Trimethoprim Unknown Drug Allergy A ctive Piperacillin Sodium Unknown Drug Allergy Active Levaquin Unknown Drug Allergy Active REASON FOR REFERRAL No Information MEDICATIONS Medication SIG (Take, Route, Frequency, Duration) Notes Start Date End Date Status Tylenol 325 MG 1 tablet as needed O rally every 6 hrs/prn Active Gabapentin 300 MG 1 capsule Orally Onc e a day for 30 day(s) Active Esomeprazole Magnesium 40 MG TAKE 1 CAPSULE DAILY for 90 Active Dicyclomine HCl 20 MG 1 tablet Orally Fo ur times a day/prn 08/13/2015 Active Mesalamine ER 0.375 GM TAKE 1 CAPSULE BY MOUTH FOUR TIMES A DAY FOR 30 DAY for 90 Active Centrum Silver Ultra Mens 1 Orally once daily Active Atorvastatin Calcium 40 MG TAKE 1 TABLET BY MOUTH EVERY DAY Oral for 90 Active Aspirin Adult Low Strength 81 MG TAKE 1 TABLET BY MOUTH EVERY DAY Oral for 90 Active IMMUNIZATIONS Vaccine Route Administration Date Status Comme nts Flu vaccine no Preserv 3 and > Unknown 04/04/2014 Admin istered Flu vaccine no Preserv 3 and > Unknown 04/30/2015 Admin istered Influenza Unknown 04/13/2017 Administered Influenza Unknown 02/22/2018 Administered Influenza Unknown 02/19/2019 Administered Influenza Unknown 04/10/2022 Administered Influenza Unknown 04/06/2023 Administered SOCIAL HISTORY Sex Assigned At : Social History Observation Description Sex Assigned At Unknown PROBLEMS Problem Type ICD Code Onset Dates Problem Status W/U Status Risk SNOMED Code Notes Problem Colon cancer screening (Z12.11) Active confirmed 897272265 Problem Gastro-esophageal reflux disease with esophagitis (K21.0) Active confirmed 627417535 Problem Colitis (K52.9) Active confirmed 939870 004 Problem Gastric polyp (K31.7) Active confirmed Gastric polyp (46049474) Problem Diverticulitis of colon without hemorrhage (K57.32) Active confirmed 772190950 Problem 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 386083590 Problem LLQ pain (R10.32) Active confirmed 3017 03901 Problem Diverticulosis of colon (K57.30) Active confirmed Diverticulosi s of colon (755895822) Problem History of Billroth II operation (Z98.0) Active confirmed History of gastrointestinal tract bypass (474015889) Problem Gastroesophageal reflux disease, unspecified whether esophagitis present (K21.9) Active confirmed 604319288 Problem Gastro-esophageal reflux disease with esophagitis, without bleeding (K21.00) Active confirmed Gastroesophagea l reflux disease with esophagitis (disorder) (722302036) VITAL SIGNS Temperature 95.9 degrees Fahrenheit 07/26/2023 Blood pressure diastolic 00 mm Hg 07/26/2023 Height 66.5 in 07/26/2023 Blood pressure systolic 000 mm Hg 07/26/2023 Weight 166 lbs 07/26/2023 BMI 26.39 kg/m2 07/26/2023 Encounters Encounter Location Date Provider Diagnosis [facility] [address] [place] [id number] 07/26/2023 Shantanu Loza Jr Diverticulitis of colon without hemorrhage K57.32 ; Gastro-esophageal reflux disease with esophagitis K21.0 and Indeterminate colitis K52.3 [facility] [address] [place] [phone] 02/08/2024 Shantanu Loza Jr ASSESSMENTS Encounter Date Diagnosis Assessment Notes Treatment Notes Treatment Clinical Notes 07/26/2023 Gastro-esophageal reflux disease with esophagitis (ICD-10 - K21.0) 07/26/2023 Diverticulitis of colon without hemorrhage (ICD-10 - K57.32) Diverticulitis - what to ask your doctor material was printed 07/26/2023 Indeterminate colitis (ICD-10 - K52.3) PLAN OF TREATMENT Pending Test Test Name Order Date CT ABD & PELVIS WITH PO CONT ONLY 2012 Future Test Test Name Order Date COLONOSCOPY 07/19/2013 COLONOSCOPY 05/27/2018 Next Appt Details Provider Name:Shantanu park Jr, 07/26/2024 09:00:00 AM, [address] [facility], [address], [place], [address], Insurance Providers Payer Name Payer Address Payer Phone Subscriber Number Group Number Insured Name Patient Relationship to Insured Coverage Start Date Coverage End Date MEDICARE OF [place] [address] [place] [address] [phone] [id number] [facility] [place] Self - patient is the insured [employer] CLAIMS [address] [place] [address] [id number] [facility] [place] Self - patient is the insured MEDICAL (GENERAL) HISTORY Medical History History ICD Code Colon polyps, colonoscopy , anastomotic stricture, dilated, biopsies showing chronic colitis, Indeterminate colitis, current therapy m esalamine, diagnosis 03/30 History of hepatic abscesses Gastroesophageal reflux disease, EGD 02/20 2, fundic gland polyps Diverticular bleeding Coronary artery disease with history of angina, right bundle-branch block, and PVCs Hyperlipidemia Surgical History Surgery Date(Month/Year) appendectomy hernia repair Sigmoid resection for divert icular phlegmon, pathology shows quiescent colitis 08/01 Hospitalization History Reason Date(Month/Year) Diverticular bleed, 4 units packed red blood cells, upper and lower endoscopy 02/2022
--- OUTSIDE RECORDS SUMMARY | 2024-07-19 10:46 | XMS_ITS ---
Author Organization [facility] Address [address] [place] [address] [place] [phone] Care Team Providers Care Rehabilitation Counselor Name Role Phone Tawanda Yu MD Primary Care Provider Unavaila Shantanu Durán Jr REASON FOR VISIT diverticulitis and colitis Encounters Encounter Location Date Provider Diagnosis [facility] [address] [place] [phone] 02/08/2024 Shantanu Loza Jr PLAN OF TREATMENT Next Appt Details Provider Name:Shantanu park Jr, 07/26/2024 09:00:00 AM, [address] [place] [address], [address], [place], [address],
--- OUTSIDE RECORDS SUMMARY | 2024-07-19 10:46 | XMS_ITS | Patient Health Record ---
Author Organization [facility] Address [address] [facility] [place] [address] Care Team Providers Care Photographer Model Name Role Phone Tawanda Yu MD Primary Care Provider Ji Mcduffie Unavailable [phone] Allergies Allergen (clinical drug ingredient) Drug/Non Drug Allergy documented on EMR Reaction Allergy Type Onset Date Status ciprofloxacin Cipro Unknown Drug Allergy Act mehreen metronidazole Flagyl Unknown Drug Allergy Act mehreen piperacillin / tazobactam Zosyn Unknown Drug Allergy Active Iodinated contrast media (substance) Iodinated Diagnostic Agents Unknown Drug Allergy Active metoprolol Metoprolol Unknown Drug Allergy Activ e Penicillin Unknown Drug Allergy Active Substance with sulfonamide structure and antibacterial mechanism of action (substance) Sulfa Antibiotics Unknown Drug Allergy Active Reason For Referral No Information Medications Medication SIG (Take, Route, Frequency, Duration) Notes Start Date End Date Status Atorvastatin Calcium 40 MG 1 tablet Oral ly Once a day Active Centrum Active Aspirin Active Esomeprazole Magnesium 40 MG 1 capsule Orally Once a day Active Mesalamine ER 0.375 GM 4 capsules in the morning Orally Once a day Active Immunizations Vaccine Route Administration Date Status Comme nts COVID-19 Moderna Vaccine Unknown 05/29/2021 Administered 1st 07/24/20 2nd 08/20/20 Social History Tobacco Use: Social History Observation Description Date Details (start date - stop date) Former Smoker NA - NA Tobacco Use/Smoking Question Answer Notes Are you a: former smoker Additional Findings: Tobacco Non-User Current no n-smoker Alcohol Screen Question Answer Notes Did you have a drink contain ing alcohol in the past year? Yes How often did you have a dri nk containing alcohol in the past year? Monthly or less (1 point) How many drinks did you have on a typical day when you were drinking in the past year? 1 or 2 drinks (0 point) Points 1 Interpretation Negative Tobacco use other than smoking: Question Answer Notes Are you an other tobacco user? No Plan Of Treatment Pending Test Test Name Order Date X ray : Foot, right 3V 10/07/2021 Insurance Providers Payer Name Payer Address Payer Phone Subscriber Number Group Number Insured Name Patient Relationship to Insured Coverage Start Date Coverage End Date Medicare National [employer]t Sv[employer] [address] [place] [address] [id number] [place] Self - patient is the insured [employer] [address] [place] [address] [id number] [place] Self - patient is the insured Medical (General) History Medical History History ICD Code Angina osteoarthritis Back,Hip,and Knee pain Broken bones Cancer Cataracts Diverticulosis Headaches/Migraines Heart disease Hiatal hernia Liver disease Reflux ( GERD) chronic sinusitis Measles Mumps Chicken pox Transfusions lower gastrointestinal bleed Inguinal Hernia Surgical History Surgery Date(Month/Year) colectomy, partial 07/2010 inguinal hernia repair
--- OUTSIDE RECORDS SUMMARY | 2024-07-19 10:46 | XMS_ITS ---
Author Organization [facility] Address [address] [place] [address] Care Team Providers Care Airways Control Specialist Name Role Phone Gigi CORTEZ, Tawanda Primary Care Provider Shantanu Gonsales Jr Unavailable [phone] ALLERGIES Allergen (clinical drug ingredient) Drug/Non Drug [...] Levaquin Unknown Drug Allergy Active REASON FOR VISIT Patient presents today for colitis MEDICATIONS Medication SIG (Take, Route, Frequency, Duration) Notes Start Date End Date Status Tylenol 325 MG 1 tablet as needed O rally every 6 hrs/prn Active Gabapentin 300 MG 1 capsule Orally Onc e a day for 30 day(s) Active Mesalamine ER 0.375 GM TAKE 1 CAPSULE BY MOUTH FOUR TIMES A DAY FOR 30 DAY for 30 Active Esomeprazole Magnesium 40 MG TAKE 1 CAPSULE DAILY for 90 Active Atorvastatin Calcium 40 MG TAKE 1 TABLET BY MOUTH EVERY DAY Oral for 90 Active Dicyclomine HCl 20 MG 1 tablet Orally Fo ur times a day/prn 08/13/2015 Active Centrum Silver Ultra Mens 1 Orally once daily Active Aspirin Adult Low Strength 81 MG TAKE 1 TABLET BY MOUTH EVERY DAY Oral for 90 Active PROBLEMS Problem Type ICD Code Onset Dates Problem Status W/U Status Risk SNOMED Code Notes Problem Gastro-esoph ageal reflux disease with esophagitis, without bleeding (K21.00) Active confirmed Gastroesophagea l reflux disease with esophagitis (disorder) (921035839) VITAL SIGNS BMI 26.39 kg/m2 07/26/2023 Blood pressure systolic 000 mm Hg 07/26/19 24 Blood pressure diastolic 00 mm Hg 024 Height 66.5 in 07/26/2023 Temperature 95.9 degrees Fahrenheit 07/26/19 24 Weight 166 lbs 07/26/2023 Encounters Encounter Location Date Provider Diagnosis [facility] [address] [place] [address] 07/26/2023 Shantanu Loza Jr Diverticulitis of colon without hemorrhage K57.32 ; Gastro-esophageal reflux disease with esophagitis K21.0 and Indeterminate colitis K52.3 ASSESSMENTS Encounter Date Diagnosis Assessment Notes Treatment Notes Treatment Clinical Notes 07/26/2023 Diverticulitis of colon without hemorrhage (ICD-10 - K57.32) Diverticulitis - what to ask your doctor material was printed 07/26/2023 Gastro-esophageal reflux disease with esophagitis (ICD-10 - K21.0) 07/26/2023 Indeterminate colitis (ICD-10 - K52.3) PLAN OF TREATMENT Treatment Notes Assessment Notes Diverticulitis of colon without hemorrha ge Diverticulitis - what to ask your doctor material was printed Next Appt Details Follow Up: 1 Year, Reason: Provider Name:Shantanu park Jr, 07/26/2024 09:00:00 AM, [address], [address], [place], [address],
== END 2024-07-19 09:54 | disposition home or self-care (01) ==
PROVIDERS: PCP Internal Medicine; Visit Provider Internal Medicine Cardiovascular Disease
DX: I20.89 Other forms of angina pectoris (principal); I45.10 Unspecified right bundle-branch block
CPT/HCPCS: 99214

== ENCOUNTER → 2024-07-19 09:16 | Outpatient (BNVA) | payer MEDICARE, SELFPAY | PROVIDERS: PCP Internal Medicine; Visit Provider Internal Medicine Cardiovascular Disease | DX: I20.89 Other forms of angina pectoris (principal); I45.10 Unspecified right bundle-branch block; I25.10 Atherosclerotic heart disease of native coronary artery without angina pectoris | CPT/HCPCS: 99212 ==

== ENCOUNTER 2024-11-15 09:26 | Outpatient (AMB) | payer MEDICARE, SELFPAY ==
[2024-11-15 09:29] VITALS: BP 114/62; PULSE 82; BMI 25.2
--- NOTE | 2024-11-15 09:29 | A.OFFVIS_ITS ---
Vital Signs 11/15/24 09:29 Height 5 ft 8 in Weight 165 lb 12.602 oz BMI 25.2 BP 114/62 Blood Pressure Location Lt brachial Position Sitting Pulse 82 Pulse Source Pulse Oximeter Intake Visit Reasons: 4m follow up Intake Note: 4 mth f/up Model Home Sales Greeter Required: No Accompanied by: Spouse Allergies amoxicillin [Augmentin] Allergy (Severe, Verified 05/10/24 07:54) ANAPHYLAXIS clavulanic acid [CLAVULANIC ACID] Allergy (Severe, Verified 05/10/24 07:54) ANAPHYLAXIS Penicillins [PENICILLINS] Allergy (Severe, Verified 05/10/24 07:54) ANAPHYLAXIS sulfamethoxazole [From Bactrim] Allergy (Severe, Verified 05/10/24 07:54) Rash trimethoprim [From Bactrim] Allergy (Severe, Verified 05/10/24 07:54) Rash metronidazole [From FLAGYL] Allergy (Intermediate, Verified 05/10/24 07:54) RASH,NAUSEA VOMITING ciprofloxacin [From CIPRO] Allergy (Mild, Verified 05/10/24 07:54) RASH Iodinated Contrast Media [IV Dye, Iodine Containing] Allergy (Unknown, Verified 05/10/24 07:54) RASH levofloxacin [From LEVAQUIN] Allergy (Unknown, Verified 05/10/24 07:54) RASH metoprolol Allergy (Unknown, Verified 05/10/24 07:54) rash piperacillin [Zosyn] Allergy (Unknown, Verified 05/10/24 07:54) UNK. Sulfa (Sulfonamide Antibiotics) Allergy (Unknown, Verified 05/10/24 07:54) rash tazobactam [Zosyn] Allergy (Unknown, Verified 05/10/24 07:54) UNK. Medication List - Last Reconciled 11/15/24 by Luis Roach MD aspirin (Adult Aspirin Regimen) 81 mg PO DAILY atorvastatin 40 mg PO DAILY blood sugar diagnostic (FreeStyle Test strips) As directed esomeprazole magnesium 40 mg PO DAILY gabapentin 300 mg PO DAILY lancets (FreeStyle Lancets) As directed mesalamine ER 1.5 grams PO DAILY HPI Comments Details: 79-year-old gentleman here for follow-up. He was previously seen for palpitations which would happen to stressful situations. His Holter monitor showed 4000 monomorphic PVCs. He underwent echocardiography which showed low normal ejection fraction of 50 for 55% he in does no symptoms. Given mildly dropped ejection fraction as well as premature ventricular complexes, I sent him for exercise stress test. He exercised for 1-1/2 minute and stopped due to dyspnea as per the documentation. Patient is saying that he was feeling tired and probably was hypoglycemic and that is why stop but he is unsure. He did not have any chest discomfort. He was changed to a Lexiscan which did not show any perfusion defects. He is returning for follow-up and continues to stay active. He is saying he can walk on a plain surface up to 3 mile. His repeat Holter is showing relatively less number PVCs (1743/24 hours). After discussion we plan cardiac catheterization. Cardiac catheterization showed a proximal LAD 70% stenosis. This was FFR positive at 0.73. After discussion with the patient was started on aspirin and statin. We did not intervene given the lack of symptoms. Unfortunately he had rash on his body 24 hour after the procedure. He was started on prednisone and this persisted for 2- 3 weeks. He was also given metoprolol tartrate 25 mg twice a day but developed a rash. He has followed up after cardiac catheterization multiple times and has no symptoms. Clinically stable and denying any exertional symptoms. Also does not feel limited in his day-to-day life. Returns for follow-up. He continues to have no chest discomfort shortness of breath. He did have rectal bleeding and required blood transfusions. He is following with GI closely and is on mesalamine. 03/03/2023: He returns for follow-up. He is denying any chest discomfort or shortness of breath. He is saying that he gets tired by mid day and has to rest. He also feels that he has not been as strong as he was last year. He had rectal bleeding requiring 4 units of blood last year but has not had any further bleeding recently. Has been taking baby aspirin regularly. 07/07/2023: He returns for follow-up. He has been stable and is denying any chest discomfort or significant shortness of breath. Occasionally gets shortness of breath with activities but no consistent symptoms. Taking baby asp irin and tolerating with no recent bleeding. He previously had colitis with bleeding. 10/13/23: He returns for follow-up. Denying any chest discomfort shortness of breath. He continues to work on cars as a hobby with his son and grandson. Overall clinically stable. 02/23/2024: He is here for follow-up. He had recent COVID infection. He is recovering from that. He is also is getting some left lower abdominal pain off and on. No diarrhea or bloody bowel movement. He is taking baby aspirin regularly. Denying any significant issues otherwise. 07/19/2024: He is here for follow-up. Denying any chest discomfort. He had hamstring injury on the right leg and has slowed down further. He feels tired easily compared to before. Denying any significant shortness of breath. No recent bleeding. Taking baby aspirin regularly. 11/15/24: Here for follow-up. 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 He is saying by mid day he feels fatigued and tired but while doing activities he does not get significant symptoms. He did have 1 episode of left-sided chest discomfort which lasted for couple of hours 3-4 weeks ago. He said this was self-limiting and since then he has not had any further symptoms. [facility] Medical History Hepatic abscess Hyperglycemia Hyperlipidemia PVC (premature ventricular contraction) RBBB Stable angina CAD (coronary artery disease) Colitis Diverticulitis GERD (gastroesophageal reflux disease) Surgical History History of colonoscopy Hx of hernia repair History of surgery on arm H/O colectomy Family History Family/Other Prostate cancer CVD (cardiovascular disease) Father CVD (cardiovascular disease) Social History Household Members: Spouse Housing: House Do you presently have visiting nurse or other home services: No Alcohol intake: current Alcohol intake frequency: holidays/special occasions only Comment: Non-skid socks on Patient Tobacco Use Status: Former Tobacco user Tobacco use type: Cigarette e-Cigarette/Vaping Use: Never Used Second Hand Smoke Exposure: No service: Yes Current occupational status: retired Cognitive needs: No Hearing needs: No Vision needs: No Review of Systems Const Denies chills, Denies fatigue, Denies fever(s), Denies frequent falls, Denies weakness, Denies weight gain and Denies weight loss ENT Denies dizziness Card Denies chest pain, Denies leg edema, Denies lightheadedness, Denies palpitations, Denies dyspnea and Denies dyspnea on exertion Resp Denies cough, Denies dyspnea and Denies dyspnea on exertion GI Denies hematochezia Musc Denies abnormal gait, Denies muscle weakness, Denies numbness, Denies radiating pain into limb and Denies tingling Neuro Denies abnormal gait, Denies dizziness, Denies frequent falls, Denies numbness, Denies tingling and Denies weakness Endo Denies fatigue and Denies palpitations Physical Exam Vital Signs: Last Vital Signs Pulse 82 11/15/24 09:29 BP 114/62 11/15/24 09:29 BMI result Body Mass Index 25.2 GENERAL APPEARANCE: in no acute distress. NECK/THYROID: no carotid bruit. SKIN: no suspicious lesions, warm and dry. HEART: no murmurs, regular rate and rhythm, S1, S2 normal. LUNGS: clear to auscultation bilaterally. ABDOMEN: normal, bowel sounds present, soft, nontender, nondistended. EXTREMITIES: no edema. PERIPHERAL PULSES: equal. NEUROLOGIC: nonfocal, alert and oriented. Assessment & Plan Assessment & Plan (1) PVC (premature ventricular contraction): Code(s): I49.3 - Ventricular premature depolarization Category: Medical (2) Stable angina: Code(s): I20.8 - Other forms of angina pectoris Category: Medical (3) MURO (dyspnea on exertion): Code(s): R06.09 - Other forms of dyspnea Category: Medical Plan Pleasant 79-year-old gentleman who is here for follow-up. He has background history of colitis with GI blood loss and stable coronary artery disease with IFR positive stenosis in the left anterior descending artery. He has complained of dyspnea on exertion in the past and continues to have some dyspnea but overall has been stable for many months. Is still active and works in the garage and does not have any significant change in his dyspnea. He did have chest discomfort few weeks ago which is a new symptom for him. We discussed about potential ways of going forward. After discussion we have decided to repeat an exercise stress test. We will do a modified Angelo protocol stress test. This is mainly to see symptoms with activities. If he is significantly symptomatic with exercise or develops ischemic changes at a lower workload then before then we will discuss about repeat cardiac catheterization. I have explained to him that in that circumstance I will send him to an roll contour grinder to have discussion about potential ways of dealing with his delayed contrast reaction. He was prepared before with steroids and antihistamine medications but still had a pretty severe contrast reaction. He also has colitis and has bled before which has been 1 of the reasons we have been conservative about treating his coronary disease. I have explained to him that with the current generation stents 1-3 months of dual antiplatelet therapy is also a possibility. I will see him after the exercise stress test. He will report to us if any new symptoms develop. Thank you for allowing me to participate in the care of your patient. Please feel free to contact me if you have any questions. Orders: Orders CA stress test Today I20.8 - Other forms of angina pectoris Coding Level of Care Code Est Pt Level 4 (13552) Diagnoses PVC (premature ventricular contraction) I49.3 Stable angina I20.8 MURO (dyspnea on exertion) R06.09
== END 2024-11-15 10:04 | disposition home or self-care (01) ==
LOC: HO.HCS 09:27
PROVIDERS: PCP Internal Medicine; Visit Provider Internal Medicine Cardiovascular Disease
DX: I49.3 Ventricular premature depolarization (principal); I20.89 Other forms of angina pectoris; R06.09 Other forms of dyspnea
CPT/HCPCS: 99214

== ENCOUNTER → 2024-11-15 09:26 | Outpatient (BNVA) | payer MEDICARE, SELFPAY | PROVIDERS: PCP Internal Medicine; Visit Provider Internal Medicine Cardiovascular Disease | DX: I49.3 Ventricular premature depolarization (principal); I20.89 Other forms of angina pectoris; R06.09 Other forms of dyspnea; Z87.891 Personal history of nicotine dependence | CPT/HCPCS: 99212 ==

== ENCOUNTER 2024-12-15 10:11 | Outpatient (AMB) | payer MEDICARE, SELFPAY ==
[2024-12-15 10:15] VITALS: BP 120/70; PULSE 60; O2SAT 96; BMI 24.5
--- NOTE | 2024-12-15 10:15 | MHC.PC.OV ---
Vital Signs 12/15/24 10:15 Height 5 ft 8 in Weight 161 lb BMI 24.5 BP 120/70 Blood Pressure Location Lt brachial Position Sitting Pulse 60 Pulse Source Pulse Oximeter Pulse Oximetry (%) 96 Oxygen Delivery Method Room Air Intake Visit Reasons: AUREA Dr Yu Assistant Oceanographer Required: No Accompanied by: Self / Same As Patient Allergies amoxicillin (Augmentin) Allergy (Severe, Verified 12/15/24 10:50) ANAPHYLAXIS clavulanic acid (CLAVULANIC ACID) Allergy (Severe, Verified 12/15/24 10:50) ANAPHYLAXIS Penicillins (PENICILLINS) Allergy (Severe, Verified 12/15/24 10:50) ANAPHYLAXIS sulfamethoxazole (From Bactrim) Allergy (Severe, Verified 12/15/24 10:50) Rash trimethoprim (From Bactrim) Allergy (Severe, Verified 12/15/24 10:50) Rash metronidazole (From FLAGYL) Allergy (Intermediate, Verified 12/15/24 10:50) RASH,NAUSEA VOMITING ciprofloxacin (From CIPRO) Allergy (Mild, Verified 12/15/24 10:50) RASH Iodinated Contrast Media (IV Dye, Iodine Containing) Allergy (Unknown, Verified 12/15/24 10:50) RASH levofloxacin (From LEVAQUIN) Allergy (Unknown, Verified 12/15/24 10:50) RASH metoprolol Allergy (Unknown, Verified 12/15/24 10:50) rash piperacillin (Zosyn) Allergy (Unknown, Verified 12/15/24 10:50) UNK. Sulfa (Sulfonamide Antibiotics) Allergy (Unknown, Verified 12/15/24 10:50) rash tazobactam (Zosyn) Allergy (Unknown, Verified 12/15/24 10:50) UNK. Medication List - Last Reconciled 12/15/24 by Medardo Metz MD aspirin (Adult Aspirin Regimen) 81 mg PO DAILY atorvastatin 40 mg PO DAILY blood sugar diagnostic (FreeStyle Test strips) As directed esomeprazole magnesium 40 mg PO DAILY gabapentin 300 mg PO DAILY lancets (FreeStyle Lancets) As directed mesalamine ER 1.5 grams PO DAILY Tobacco use date assessed: 12/15/24 Fall risk assessment: No Falls in past year Last assessed Fall Risk: 12/15/24 Dental Screening Dental Screen Date: 12/15/24 Did you have a dental visit in the last 12 months?: Yes Did you have a dental problem in the last 6 months where you did not have access to dental care?: No Was dental information given to patient?: Patient has dentist HPI AUREA Dr Yu HPI Details Patient comes in today for his follow up visit - is transferring over from Dr. Yu, who retired from the practice a few months ago States that he feels okay except for some recurrent leg symptoms that seem more pronounced at night lately Patient describes his leg symptoms as more of a sensation wherein he feels the need to move his legs often to stay comfortable although he thinks that these are likely leg/muscle cramps He denies any headaches or dizziness Denies any chest pains, no increased shortness of breath No nausea/vomiting, no abdominal pain No change in bowel habits noted Needs his glucometer test strips Rx refilled today Patient has no follow up labs done recently His daughter would also like for patient to see an corporate specialist for further evaluation as he has several medication allergies, mostly to Abx, and she is concerned that patient may not have any available Abx to take in the future if the need arises due to his multiple Abx allergies [facility] Medical History Diabetes mellitus Chronic colitis Pure hypercholesterolemia Hepatic abscess Hyperglycemia Hyperlipidemia PVC (premature ventricular contraction) RBBB Stable angina CAD (coronary artery disease) Colitis Diverticulitis GERD (gastroesophageal reflux disease) Surgical History History of colonoscopy Hx of hernia repair History of surgery on arm H/O colectomy Family History Family/Other Prostate cancer CVD (cardiovascular disease) Father CVD (cardiovascular disease) Social History Household Members: Spouse Housing: House Do you presently have visiting nurse or other home services: No Alcohol intake: current Alcohol intake frequency: holidays/special occasions only Comment: Non-skid socks on Patient Tobacco Use Status: Former Tobacco user Tobacco use type: Cigarette e-Cigarette/Vaping Use: Never Used Second Hand Smoke Exposure: No service: Yes Current occupational status: retired Cognitive needs: No Hearing needs: No Vision needs: No Questionnaire PHQ-9 Over the last 2 weeks, how often have you been bothered by any of the following problems? 1. Little interest or pleasure in doing things: not at all 2. Feeling down, depressed, or hopeless: not at all 3. Trouble falling or staying asleep, or sleeping too much: not at all 4. Feeling tired or having little energy: not at all 5. Poor appetite or overeating: not at all 6. Feeling bad about yourself - or that you are a failure or have let yourself or your family down: not at all 7. Trouble concentrating on things, such as reading the newspaper or watching television: not at all 8. Moving or speaking so slowly that other people could have noticed. Or the opposite - being so fidgety or restless that you have been moving around a lot more than usual: not at all 9. Thoughts that you would be better off or of hurting yourself in some way: not at all Total score: 0 Depression Screening Interpretation: Negative Depression Screening Done: Yes 13729 - PHQ-9 Billing: Yes Source: Developed by Drs. Musa Wang, Susan Jimenez, Jovanny Browning and colleagues, with an educational jamaal from [employer]. Thrive Questionnaire Date Thrive assessed: 12/15/24 I am a: Patient What is your living situation today?: I have a steady place to live Within the past 12 months, did the food you bought not last and you didn't have the money to get more?: Never true Within the past 12 months, did you worry whether your food would run out before you got money to buy more?: Never true Do you have trouble paying for medicines?: No Do you have trouble getting transportation to medical appointments?: No Do you have trouble paying your heating and electricity bill?: No Do you have trouble taking care of your child, family member or friend?: No Do you have trouble with day-to-day activities such as bathing, preparing meals, shopping, managing finances, etc.?: No Are you currently unemployed and looking for a job?: No Are you interested in more education?: No Please select the resources that you would like help with: None Currently or been in a relationship where the following occur: No concerns reported THRIVE Score: 0 AUDIT C Alcohol Use Questionnaire (AUDIT-C) 1. How often do you have a drink containing alcohol?: Monthly or less 2. How many drinks containing alcohol do you have on a typical day when you are drinking?: 1 or 2 3. How often do you have six or more drinks on one occasion?: Never Total Score: 1 Score Reviewed/Action Taken: Yes ALEJANDRA-7 AMB Questionnaire ALEJANDRA-7 Date ALEJANDRA - 7 assessed: 12/15/24 Feeling nervous, anxious, or on edge: 0 = Not at all Not being able to stop or control worryin = Not at all Worrying too much about different things: 0 = Not at all Trouble relaxin = Not at all Being so restless that it is hard to sit still: 0 = Not at all Becoming easily annoyed or irritable: 0 = Not at all Feeling afraid as if something awful might happen: 0 = Not at all Total ALEJANDRA-7 score (0-4 normal; 5-9 mild; 10-14 moderate; 15-21 severe): 0 Source: Developed by Drs. Musa Wang, Susan Jimenez, Jovanny Browning and colleagues, with an educational jamaal from [employer]. Review of Systems Const Denies chills, Denies fatigue, Denies fever(s) and Denies headache(s) ENT Denies dysphagia, Denies dizziness, Denies otalgia, Denies headache(s), Denies neck pain, Denies odynophagia and Denies sore throat Card Denies chest pain, Denies palpitations and Reports dyspnea on exertion (mild; chronic) Resp Denies cough and Reports dyspnea on exertion (mild; chronic) GI Denies abdominal pain, Denies constipation, Denies dysphagia, Denies heartburn, Denies diarrhea, Denies nausea, Denies odynophagia and Denies vomiting Denies dysuria, Denies nocturia and Denies urinary frequency Musc Denies back pain, Reports muscle cramps (in both legs - see HPI) and Denies neck pain Skin/Breast Denies rash Neuro Denies dizziness and Denies headache(s) Endo Denies fatigue and Denies palpitations Physical exam (Primary Care) Vital Signs: Last Vital Signs Pulse 60 12/15/24 10:15 BP 120/70 12/15/24 10:15 Pulse Ox 96 06/27/25 10:15 Oxygen Delivery Method Room Air 12/15/24 10:15 BMI result Body Mass Index 24.5 Tobacco/Smoking Status: Tobacco use Status Tobacco use date assessed 12/15/24 12/15/24 10:16 Patient Tobacco Use Status Former Tobacco user 12/15/24 10:16 Tobacco use type Cigarette 12/15/24 10:16 e-Cigarette/Vaping Use Never Used 12/15/24 10:16 PHQ-9: PHQ-9 Score PHQ-9: Total score 0 12/15/24 11:04 Depression Screening Interpretation: Negative Thrive Assessment: Date of Thrive Assessment Date Thrive assessed 12/15/24 12/15/24 10:16 Currently or been in a relationship where the following occur: No concerns reported Const General: no acute distress and alert HENMT Ears: TM's normal bilaterally and EAC's normal Throat: Yes posterior oropharynx normal and Yes tonsils normal (no TP congestion) Neck Neck: Yes no lymphadenopathy and Yes supple Resp Auscultation: clear to auscultation bilaterally, no rales and no wheezes Cardio Rate: regular rate Rhythm: regular rhythm Heart sounds: no murmurs GI Palpation (GI): Soft to palpation, nontender and No hepatosplenomegaly present Skin General skin exam: no rashes or lesions noted Extrem General: Yes no clubbing, cyanosis or edema Coding Level of Care Code Est Pt Level 4 (39437) Complex EM visit Add On G2211 Diagnoses Coronary artery disease of [place] artery of [place] heart with stable angina pectoris I25.118 Coronary Disease-Associated Artery/Lesion type: [place] artery [place] vs. transplanted heart: [place] heart Associated angina: with stable angina Pure hypercholesterolemia E78.00 Gastroesophageal reflux disease without esophagitis K21.9 Esophagitis presence: without esophagitis Chronic colitis K52.9 Type 2 diabetes mellitus without complication, without long-term current use of insulin E11.9 Diabetes mellitus type: type 2 Diabetes mellitus salvage determiner insulin use: without salvage determiner use Diabetes mellitus complication status: without complication Nocturnal leg movements R25.8 Multiple drug allergies Z88.9 Additional Codes PHQ-9 - 37917 - PHQ-9 Billing: Yes ([id number]) Assessment & Plan Assessment & Plan (1) CAD (coronary artery disease): Code(s): I25.10 - Atherosclerotic heart disease of [place] coronary artery without angina pectoris Category: Medical Qualifiers: Coronary Disease-Associated Artery/Lesion type: [place] artery [place] vs. transplanted heart: [place] heart Associated angina: with stable angina Qualified Code(s): I25.118 - Atherosclerotic heart disease of [place] coronary artery with other forms of angina pectoris Plan: (+) Hx of PVCs and RBBB Lexiscan stress test done earlier this year came out normal, with no perfusion defect Cardiac catheterization showed a proximal LAD 70% stenosis. This was FFR positive at 0.73 No intervention was done given his lack of symptoms Continue Aspirin 81 mg QD Follow up with cardiology as scheduled (2) Pure hypercholesterolemia: Code(s): E78.00 - Pure hypercholesterolemia, unspecified Category: Medical Plan: Patient has no recent follow up labs done Reinforced low cholesterol diet Continue Atorvastatin 80 mg QD Will have patient recheck his labs and fasting lipids in 6 months for follow up (3) GERD (gastroesophageal reflux disease): Code(s): K21.9 - Gastro-esophageal reflux disease without esophagitis Category: Medical Qualifiers: Esophagitis presence: without esophagitis Qualified Code(s): K21.9 - Gastro-esophageal reflux disease without esophagitis Plan: Dietary restrictions reinforced Continue Esomeprazole 40 mg QD (4) Chronic colitis: Comment: indeterminate type Code(s): K52.9 - Noninfective gastroenteritis and colitis, unspecified Category: Medical Plan: Patient's GI symptoms appear to be controlled on his current Rx - Mesalamine ER 1.5 gm QD Follow up with GI as scheduled (5) Diabetes mellitus: Code(s): E11.9 - Type 2 diabetes mellitus without complications Category: Medical Qualifiers: Diabetes mellitus type: type 2 Diabetes mellitus long-term insulin use: without salvage determiner use Diabetes mellitus complication status: without complication Qualified Code(s): E11.9 - Type 2 diabetes mellitus without complications Plan: Patient's HgbA1c was at 7.5% when last checked in February 2024 - goal is at least <7.5% Reinforced diabetic diet He is on no Rx for his diabetes at this time Will recheck his FBS and HgbA1c in 6 months for follow up (6) Nocturnal leg movements: Code(s): R25.8 - Other abnormal involuntary movements Category: Medical Plan: Continue Gabapentin 300 mg QD He is currently also seeing neurology for this Will try him on Manesium oxide 400 mg Q HS He is advised that if oral Magnesium does not help with his leg symptoms over the next couple of weeks, can consider starting him on a trial of Rx for RLS (7) Multiple drug allergies: Code(s): Z88.9 - Allergy status to unspecified drugs, medicaments and biological substances Category: Medical Plan: Per request, we will refer him to an tube cutter operator for further evaluation and management Plan Follow up in 6 months Orders: Orders Complete Blood Count Auto Diff 06/04/25 D64.9 - Anemia, unspecified Comprehensive [place]. Panel Fast 06/04/25 E78.00 - Pure hypercholesterolemia, unspecified Vitamin D 25-OH Total 06/04/25 E55.9 - Vitamin D deficiency, unspecified Hemoglobin A1c 06/04/25 E11.9 - Type 2 diabetes mellitus without complications Lipid Panel 06/04/25 E78.00 - Pure hypercholesterolemia, unspecified Magnesium 06/04/25 E83.42 - Hypomagnesemia Vitamin B12 and Folate 06/04/25 E53.8 - Deficiency of other specified B group vitamins UA CC w/rflx Micro + Cult 06/04/25 R30.0 - Dysuria TSH reflex Free T4 06/04/25 E78.00 - Pure hypercholesterolemia, unspecified Microalbumin, Random (w Creat) 06/04/25 E11.9 - Type 2 diabetes mellitus without complications Referrals Allergy & Immunology Referral Z88.9 - Allergy status to unspecified drugs, medicaments and biological substances Medications: New magnesium oxide 400 mg PO BEDTIME 90 tabs 1RF 90 days Refilled blood sugar diagnostic (FreeStyle Test strips) As directed 100 ea 12RF
== END 2024-12-15 11:07 | disposition home or self-care (01) ==
LOC: HO.HMCH 10:12
PROVIDERS: PCP Internal Medicine; Visit Provider Internal Medicine
DX: I25.118 Atherosclerotic heart disease of native coronary artery with other forms of angina pectoris (principal); E11.9 Type 2 diabetes mellitus without complications; E78.00 Pure hypercholesterolemia, unspecified; K21.9 Gastro-esophageal reflux disease without esophagitis; K52.9 Noninfective gastroenteritis and colitis, unspecified; R25.8 Other abnormal involuntary movements; Z88.9 Allergy status to unspecified drugs, medicaments and biological substances

== ENCOUNTER → 2024-12-15 10:11 | Outpatient (BNVA) | payer MEDICARE, SELFPAY | PROVIDERS: PCP Internal Medicine; Visit Provider Internal Medicine | DX: I25.118 Atherosclerotic heart disease of native coronary artery with other forms of angina pectoris (principal); E78.00 Pure hypercholesterolemia, unspecified; K21.9 Gastro-esophageal reflux disease without esophagitis; K52.9 Noninfective gastroenteritis and colitis, unspecified; E11.9 Type 2 diabetes mellitus without complications; R25.8 Other abnormal involuntary movements; Z88.9 Allergy status to unspecified drugs, medicaments and biological substances; Z87.891 Personal history of nicotine dependence | CPT/HCPCS: 96127; 99212 ==

== ENCOUNTER → 2024-12-19 07:55 | Outpatient (REF) | payer MEDICARE, SELFPAY ==
--- NOTE | 2024-12-19 07:58 | CA_ITS ---
Acquisition Time: 2024-12-19 08:04:26 Total Exercise Time: 00:05:00 Test Indications: CP, SOB Medications: SEE H&P Protocol: MOD LOLI Max HR: 126 BPM 90% of Pred: 140 BPM Max BP: 170/74 mmHG Max Work Load: 3.2 METS Exercise stress test with exercise 5 mins of Modified [place] Protocol, reduced speed at 1.5mph and incline at 5%, achieving 90% MPHR, with reports of SOB, no chest pain, with isolated PACs- brief runs 3 beats, isolated PVCs- isolated couplets and triplets, with normotensive response to exercise. Without any EKG changes meeting criteria for ischemia. In recovery, breathing improved to baseline. Test reviewed with Dr. Burns. Referred By: Luis Roach Electronically Signed By: Jens Wood
== END ==
LOC: HO.CARD 07:55
PROVIDERS: PCP Internal Medicine; Visit Provider Internal Medicine Cardiovascular Disease
DX: I20.89 Other forms of angina pectoris (principal)
CPT/HCPCS: 93017

== ENCOUNTER → 2024-12-19 07:58 | Outpatient (BNV) | payer MEDICARE, SELFPAY | PROVIDERS: PCP Internal Medicine | DX: R06.02 Shortness of breath (principal); I49.1 Atrial premature depolarization; I49.3 Ventricular premature depolarization | CPT/HCPCS: 93016; 93018 ==

== ENCOUNTER 2025-01-08 10:41 | Outpatient (AMB) | payer MEDICARE, SELFPAY ==
--- NOTE | 2025-01-08 10:54 | A.OFFVIS_ITS ---
Vital Signs 01/08/25 10:56 Weight 158 lb 15.253 oz BP 120/72 Blood Pressure Location Lt brachial Position Sitting Pulse 50 Pulse Source Pulse Oximeter Intake Visit Reasons: sooner Apt per km [employer] Maintenance Required: No Accompanied by: Spouse Allergies amoxicillin (Augmentin) Allergy (Severe, Verified 12/15/24 10:50) ANAPHYLAXIS clavulanic acid (CLAVULANIC ACID) Allergy (Severe, Verified 12/15/24 10:50) ANAPHYLAXIS Penicillins (PENICILLINS) Allergy (Severe, Verified 12/15/24 10:50) ANAPHYLAXIS sulfamethoxazole (From Bactrim) Allergy (Severe, Verified 12/15/24 10:50) Rash trimethoprim (From Bactrim) Allergy (Severe, Verified 12/15/24 10:50) Rash metronidazole (From FLAGYL) Allergy (Intermediate, Verified 12/15/24 10:50) RASH,NAUSEA VOMITING ciprofloxacin (From CIPRO) Allergy (Mild, Verified 12/15/24 10:50) RASH Iodinated Contrast Media (IV Dye, Iodine Containing) Allergy (Unknown, Verified 12/15/24 10:50) RASH levofloxacin (From LEVAQUIN) Allergy (Unknown, Verified 12/15/24 10:50) RASH metoprolol Allergy (Unknown, Verified 12/15/24 10:50) rash piperacillin (Zosyn) Allergy (Unknown, Verified 12/15/24 10:50) UNK. Sulfa (Sulfonamide Antibiotics) Allergy (Unknown, Verified 12/15/24 10:50) rash tazobactam (Zosyn) Allergy (Unknown, Verified 12/15/24 10:50) UNK. Medication List - Last Reconciled 01/08/25 by Luis Roach MD aspirin (Adult Aspirin Regimen) 81 mg PO DAILY atorvastatin 40 mg PO DAILY blood sugar diagnostic (FreeStyle Test strips) As directed esomeprazole magnesium 40 mg PO DAILY gabapentin 300 mg PO DAILY lancets (FreeStyle Lancets) As directed magnesium oxide 400 mg PO BEDTIME 90 days mesalamine ER 1.5 grams PO DAILY HPI Comments Details: 79-year-old gentleman here for follow-up. He was previously seen for palpitations which would happen to stressful situations. His Holter monitor showed 4000 monomorphic PVCs. He underwent echocardiography which showed low normal ejection fraction of 50 for 55% he in does no symptoms. Given mildly dropped ejection fraction as well as premature ventricular complexes, I sent him for exercise stress test. He exercised for 1-1/2 minute and stopped due to dyspn ea as per the documentation. Patient is saying that he was feeling tired and probably was hypoglycemic and that is why stop but he is unsure. He did not have any chest discomfort. He was changed to a Lexiscan which did not show any perfusion defects. He is returning for follow-up and continues to stay active. He is saying he can walk on a plain surface up to 3 mile. His repeat Holter is showing relatively less number PVCs (1743/24 hours). After discussion we plan cardiac catheterization. Cardiac catheterization showed a proximal LAD 70% stenosis. This was FFR positive at 0.73. After dis cussion with the patient was started on aspirin and statin. We did not intervene given the lack of symptoms. Unfortunately he had rash on his body 24 hour after the procedure. He was started on prednisone and this persisted for 2-3 weeks. He was also given metoprolol tartrate 25 mg twice a day but developed a rash. He has followed up after cardiac catheterization multiple times and has no symptoms. Clinically stable and denying any exertional symptoms. Also does not feel limited in his day-to-day life. Returns for follow-up. He continues to have no chest discomfort shortness of breath. He did have rectal bleeding and required blood transfusions. He is following with GI closely and is on mesalamine. 03/03/2023: He returns for follow-up. He is denying any chest discomfort or shortness of breath. He is saying that he gets tired by mid day and has to rest. He also feels that he has not been as strong as he was last year. He had rectal bleeding requiring 4 units of blood last year but has not had any further bleeding recently. Has been taking baby aspirin regularly. 07/07/2023: He returns for follow-up. He has been stable and is denying any chest discomfort or significant shortness of breath. Occasionally gets shortness of breath with activities but no consistent symptoms. Taking baby aspirin and tolerating with no recent bleeding. He previously had colitis with bleeding. 10/13/23: He returns for follow-up. Denying any chest discomfort shortness of breath. He continues to work on cars as a hobby with his son and grandson. Overall clinically stable. 02/23/2024: He is here for follow-up. He had recent COVID infection. He is recovering from that. He is also is getting some left lower abdominal pain off and on. No diarrhea or bloody bowel movement. He is taking baby aspirin regularly. Denying any significant issues otherwise. 07/19/2024: He is here for follow-up. Denying any chest discomfort. He had hamstring injury on the right leg and has slowed down further. He feels tired easily compared to before. Denying any significant shortness of breath. No recent bleeding. Taking baby aspirin regularly. 11/15/24: Here for follow-up. 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 He is saying by mid day he feels fatigued and tired but while doing activities he does not get significant symptoms. He did have 1 episode of left-sided chest discomfort which lasted for couple of hours 3-4 weeks ago. He said this was self-limiting and since then he has not had any further symptoms. 01/08/2025: Here for follow-up. He underwent stress testing where he was able to exercise for 5 minutes and had dyspnea which was the reason he terminated the stress test. He is saying he otherwise is walking at his own pace up to 2 miles with his . No chest discomfort. He did not have any dynamic changes during stress testing. Overall stable. No bleeding recently. He is due to see iron pourer to discuss about strategies for contrast exposure in case he requires angiogram in the future. [facility] Medical History Diabetes mellitus Chronic colitis Pure hypercholesterolemia Hepatic abscess Hyperglycemia Hyperlipidemia PVC (premature ventricular contraction) RBBB Stable angina CAD (coronary artery disease) Colitis Diverticulitis GERD (gastroesophageal reflux disease) Surgical History History of colonoscopy Hx of hernia repair History of surgery on arm H/O colectomy Family History Family/Other Prostate cancer CVD (cardiovascular disease) Father CVD (cardiovascular disease) Social History (Reviewed 01/08/25 @ 10:57 by Kathy Ambrosio [facility] Household Members: Spouse Housing: House Do you presently have visiting nurse or other home services: No Alcohol intake: current Alcohol intake frequency: holidays/special occasions only Comment: Non-skid socks on Patient Tobacco Use Status: Former Tobacco user Tobacco use type: Cigarette e-Cigarette/Vaping Use: Never Used Second Hand Smoke Exposure: No service: Yes Current occupational status: retired Cognitive needs: No Hearing needs: No Vision needs: No Physical Exam Vital Signs: Last Vital Signs Pulse 50 01/08/25 10:56 BP 120/72 01/08/25 10:56 GENERAL APPEARANCE: in no acute distress. NECK/THYROID: no carotid bruit. SKIN: no suspicious lesions, warm and dry. HEART: no murmurs, regular rate and rhythm, S1, S2 normal. LUNGS: clear to auscultation bilaterally. ABDOMEN: normal, bowel sounds present, soft, nontender, nondistended. EXTREMITIES: no edema. PERIPHERAL PULSES: equal. NEUROLOGIC: nonfocal, alert and oriented. Assessment & Plan Assessment & Plan (1) PVC (premature ventricular contraction): Code(s): I49.3 - Ventricular premature depolarization Category: Medical (2) Stable angina: Code(s): I20.8 - Other forms of angina pectoris Category: Medical (3) MURO (dyspnea on exertion): Code(s): R06.09 - Other forms of dyspnea Category: Medical Plan Pleasant 79-year-old gentleman who is here for follow-up. He has background history of colitis with GI blood loss and stable coronary artery disease with FFR positive stenosis in the left anterior descending artery. He underwent repeat stress testing where he was able to exercise for 5 minutes. No dynamic EKG changes were noted. He achieved 90% of predicted heart rate and terminated the stress test because of dyspnea. In his day-to-day life he continues to function and has no significant issues. I reviewed his angiogram from 2019 and he had proximally 70% proximal to mid LAD stenosis which was IFR negative but FFR positive. Due to discrepant IFR and FFR result we decided to defer PCI. He also had GI blood loss before that and this was and other big concern because he had colitis with bleeding while being on no aspirin. We have discussed again about conservative management at this stage. I think we monitor him closely and if he has a change in symptoms then consider angiography. He will see an iron pourer to see if there are any strategies to prevent his delayed contrast reaction because he was prepared for contrast allergy last time and still had a delayed reaction with rash for many weeks. Same medications for now. He will follow up with us in few months. If he has any change in symptoms then we will consider repeat angiography. Thank you for allowing me to participate in the care of your patient. Please feel free to contact me if you have any questions. Coding Level of Care Code Est Pt Level 4 (70983) Diagnoses PVC (premature ventricular contraction) I49.3 Stable angina I20.8 MURO (dyspnea on exertion) R06.09
[2025-01-08 10:56] VITALS: BP 120/72; PULSE 50
== END 2025-01-08 11:25 | disposition home or self-care (01) ==
LOC: HO.HCS 10:42
PROVIDERS: PCP Internal Medicine; Visit Provider Internal Medicine Cardiovascular Disease
DX: I49.3 Ventricular premature depolarization (principal); I20.89 Other forms of angina pectoris; R06.09 Other forms of dyspnea
CPT/HCPCS: 99214

== ENCOUNTER → 2025-01-08 10:41 | Outpatient (BNVA) | payer MEDICARE, SELFPAY | PROVIDERS: PCP Internal Medicine; Visit Provider Internal Medicine Cardiovascular Disease | DX: I49.3 Ventricular premature depolarization (principal); R06.09 Other forms of dyspnea; I20.89 Other forms of angina pectoris | CPT/HCPCS: 99212 ==

== ENCOUNTER 2025-05-21 14:00 | Outpatient (AMB) | payer MEDICARE, SELFPAY ==
--- NOTE | 2025-05-21 14:04 | A.OFFVIS_ITS ---
Vital Signs 05/21/25 14:07 Height 5 ft 8 in Weight 165 lb 5.547 oz BMI 25.1 BP 120/80 Blood Pressure Location Lt brachial Position Sitting Pulse 78 Pulse Source Pulse Oximeter Intake Visit Reasons: 4mth f/up Intake Note: 4 mth f/up Food Cooking Machine Operator Required: No Accompanied by: Spouse Allergies amoxicillin (Augmentin) Allergy (Severe, Verified 12/15/24 10:50) ANAPHYLAXIS clavulanic acid (CLAVULANIC ACID) Allergy (Severe, Verified 12/15/24 10:50) ANAPHYLAXIS Penicillins (PENICILLINS) Allergy (Severe, Verified 12/15/24 10:50) ANAPHYLAXIS sulfamethoxazole (From Bactrim) Allergy (Severe, Verified 12/15/24 10:50) Rash trimethoprim (From Bactrim) Allergy (Severe, Verified 12/15/24 10:50) Rash metronidazole (From FLAGYL) Allergy (Intermediate, Verified 12/15/24 10:50) RASH,NAUSEA VOMITING ciprofloxacin (From CIPRO) Allergy (Mild, Verified 12/15/24 10:50) RASH Iodinated Contrast Media (IV Dye, Iodine Containing) Allergy (Unknown, Verified 12/15/24 10:50) RASH levofloxacin (From LEVAQUIN) Allergy (Unknown, Verified 12/15/24 10:50) RASH metoprolol Allergy (Unknown, Verified 12/15/24 10:50) rash piperacillin (Zosyn) Allergy (Unknown, Verified 12/15/24 10:50) UNK. Sulfa (Sulfonamide Antibiotics) Allergy (Unknown, Verified 12/15/24 10:50) rash tazobactam (Zosyn) Allergy (Unknown, Verified 12/15/24 10:50) UNK. Medication List - Last Reconciled 05/21/25 by Luis Roach MD aspirin (Adult Aspirin Regimen) 81 mg PO DAILY atorvastatin 40 mg PO DAILY blood sugar diagnostic (FreeStyle Test strips) As directed esomeprazole magnesium 40 mg PO DAILY gabapentin 300 mg PO DAILY lancets (FreeStyle Lancets) As directed magnesium oxide 400 mg PO BEDTIME 90 days mesalamine ER 1.5 grams PO DAILY HPI Comments Details: 79-year-old gentleman here for follow-up. He was previously seen for palpitations which would happen to stressful situations. His Holter monitor showed 4000 monomorphic PVCs. He underwent echocardiography which showed low normal ejection fraction of 50 for 55% he in does no symptoms. Given mildly dropped ejection fraction as well as premature ventricular complexes, I sent him for exercise stress test. He exercised for 1-1/2 minute and stopped due to dyspnea as per the documentation. Patient is saying that he was feeling tired and probably was hypoglycemic and that is why stop but he is unsure. He did not have any chest discomfort. He was changed to a Lexiscan which did not show any perfusion defects. He is returning for follow-up and continues to stay active. He is saying he can walk on a plain surface up to 3 mile. His repeat Holter is showing relatively less number PVCs (1743/24 hours). After discussion we plan cardiac catheterization. Cardiac catheterization showed a proximal LAD 70% stenosis. This was FFR positive at 0.73. After discussion with the patient was started on aspirin and statin. We did not intervene given the lack of symptoms. Unfortunately he had rash on his body 24 hour after the procedure. He was started on prednisone and this persisted for 2- 3 weeks. He was also given metoprolol tartrate 25 mg twice a day but developed a rash. He has followed up after cardiac catheterization multiple times and has no symptoms. Clinically stable and denying any exertional symptoms. Also does not feel limited in his day-to-day life. Returns for follow-up. He continues to have no chest discomfort shortness of breath. He did have rectal bleeding and required blood transfusions. He is following with GI closely and is on mesalamine. 03/03/2023: He returns for follow-up. He is denying any chest discomfort or shortness of breath. He is saying that he gets tired by mid day and has to rest. He also feels that he has not been as strong as he was last year. He had rectal bleeding requiring 4 units of blood last year but has not had any further bleeding recently. Has been taking baby aspirin regularly. 07/07/2023: He returns for follow-up. He has been stable and is denying any chest discomfort or significant shortness of breath. Occasionally gets shortness of breath with activities but no consistent symptoms. Taking baby aspirin and tolerating with no recent bleeding. He previously had colitis with bleeding. 10/13/23: He returns for follow-up. Denying any chest discomfort shortness of breath. He continues to work on cars as a hobby with his son and grandson. Overall clinically stable. 02/23/2024: He is here for follow-up. He had recent COVID infection. He is recovering from that. He is also is getting some left lower abdominal pain off and on. No diarrhea or bloody bowel movement. He is taking baby aspirin regularly. Denying any significant issues otherwise. 07/19/2024: He is here for follow-up. Denying any chest discomfort. He had hamstring injury on the right leg and has slowed down further. He feels tired easily compared to before. Denying any significant shortness of breath. No recent bleeding. Taking baby aspirin regularly. 11/15/24: Here for follow-up. 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 He is saying by mid day he feels fatigued and tired but while doing activities he does not get significant symptoms. He did have 1 episode of left-sided chest discomfort which lasted for couple of hours 3-4 weeks ago. He said this was self-limiting and since then he has not had any further symptoms. 01/08/2025: Here for follow-up. He underwent stress testing where he was able to exercise for 5 minutes and had dyspnea which was the reason he terminated the stress test. He is saying he otherwise is walking at his own pace up to 2 miles with his . No chest discomfort. He did not have any dynamic changes during stress testing. Overall stable. No bleeding recently. He is due to see energy conservation director to discuss about strategies for contrast exposure in case he requires angiogram in the future. 05/21/2025: He is here for follow-up. He saw allergy immunology and was given a plan for dye preparation before cardiac catheterization is required. It appears he had similar preparation given to him before with the exception that it was advised that he continues the H2 blockers and antihistamine his post procedure for up to a week. He continues to have some dyspnea with activities but it is stable. He is functioning fine. His main complaint as before he has fatigue Blunt's unrelated to cardiovascular disease. [facility] Medical History Diabetes mellitus Chronic colitis Pure hypercholesterolemia Hepatic abscess Hyperglycemia Hyperlipidemia PVC (premature ventricular contraction) RBBB Stable angina CAD (coronary artery disease) Colitis Diverticulitis GERD (gastroesophageal reflux disease) Surgical History History of colonoscopy Hx of hernia repair History of surgery on arm H/O colectomy Family History Family/Other Prostate cancer CVD (cardiovascular disease) Father CVD (cardiovascular disease) Social History Household Members: Spouse Housing: House Do you presently have visiting nurse or other home services: No Alcohol intake: current Alcohol intake frequency: holidays/special occasions only Comment: Non-skid socks on Patient Tobacco Use Status: Former Tobacco user Tobacco use type: Cigarette e-Cigarette/Vaping Use: Never Used Second Hand Smoke Exposure: No service: Yes Current occupational status: retired Cognitive needs: No Hearing needs: No Vision needs: No Review of Systems Const Denies chills, Denies fatigue, Denies fever(s), Denies frequent falls, Denies weakness, Denies weight gain and Denies weight loss ENT Denies dizziness Card Denies chest pain, Denies leg edema, Denies lightheadedness, Denies palpitations, Denies dyspnea and Denies dyspnea on exertion Resp Denies cough, Denies dyspnea and Denies dyspnea on exertion GI Denies hematochezia Musc Denies abnormal gait, Denies muscle weakness, Denies numbness, Denies radiating pain into limb and Denies tingling Neuro Denies abnormal gait, Denies dizziness, Denies frequent falls, Denies numbness, Denies tingling and Denies weakness Endo Denies fatigue and Denies palpitations Physical Exam Vital Signs: Last Vital Signs Pulse 78 05/21/25 14:07 BP 120/80 05/21/25 14:07 BMI result Body Mass Index 25.1 GENERAL APPEARANCE: in no acute distress. NECK/THYROID: no carotid bruit. SKIN: no suspicious lesions, warm and dry. HEART: no murmurs, regular rate and rhythm, S1, S2 normal. LUNGS: clear to auscultation bilaterally. ABDOMEN: normal, bowel sounds present, soft, nontender, nondistended. EXTREMITIES: no edema. PERIPHERAL PULSES: equal. NEUROLOGIC: nonfocal, alert and oriented. Assessment & Plan Assessment & Plan (1) Stable angina: Code(s): I20.8 - Other forms of angina pectoris Category: Medical (2) RBBB: Code(s): I45.10 - Unspecified right bundle-branch block Category: Medical (3) PVC (premature ventricular contraction): Code(s): I49.3 - Ventricular premature depolarization Category: Medical (4) MURO (dyspnea on exertion): Code(s): R06.09 - Other forms of dyspnea Category: Medical Plan Pleasant 79-year-old gentleman who is here for follow-up. He has background history of colitis with GI blood loss and stable coronary artery disease with FFR positive stenosis in the left anterior descending artery. He underwent repeat stress testing where he was able to exercise for 5 minutes. No dynamic EKG changes were noted. He achieved 90% of predicted heart rate and terminated the stress test because of dyspnea. In his day-to-day life he continues to function and has no significant issues. I reviewed his angiogram from 2019 and he had 70% proximal to mid LAD stenosis which was IFR negative but FFR positive. Due to discrepant IFR and FFR result we decided to defer PCI. He also had GI blood loss before that and this was another big concern because he had colitis with bleeding while being on no aspirin. We have discussed again about conservative management at this stage. I think we monitor him closely and if he has a change in symptoms then consider angiography. He has seen allergy and immunology and we have a pre cath plan. Current plan as before is conservative management. Thank you for allowing me to participate in the care of your patient. Please feel free to contact me if you have any questions. Coding Level of Care Code Est Pt Level 4 (92962) Diagnoses Stable angina I20.8 RBBB I45.10 PVC (premature ventricular contraction) I49.3 MURO (dyspnea on exertion) R06.09
[2025-05-21 14:07] VITALS: BP 120/80; PULSE 78; BMI 25.1
== END 2025-05-21 14:36 | disposition home or self-care (01) ==
LOC: HO.HCS 14:01
PROVIDERS: PCP Internal Medicine; Visit Provider Internal Medicine Cardiovascular Disease
DX: I20.89 Other forms of angina pectoris (principal); I45.10 Unspecified right bundle-branch block; I49.3 Ventricular premature depolarization; R06.09 Other forms of dyspnea
CPT/HCPCS: 99214

== ENCOUNTER → 2025-05-21 14:00 | Outpatient (BNVA) | payer MEDICARE, SELFPAY | PROVIDERS: PCP Internal Medicine; Visit Provider Internal Medicine Cardiovascular Disease | DX: I20.89 Other forms of angina pectoris (principal); I45.10 Unspecified right bundle-branch block; I49.3 Ventricular premature depolarization; R06.09 Other forms of dyspnea; Z87.891 Personal history of nicotine dependence | CPT/HCPCS: 99212 ==

== ENCOUNTER 2025-06-04 06:15 | Outpatient (REF) | payer MEDICARE, SELFPAY ==
[2025-06-04 06:28] LABS: MANUAL DIFF FLAG NO
[2025-06-04 07:55] LABS: Hematocrit 48.0 % (42.0-52.0); Hemoglobin 15.5 g/dl (14.0-18.0); Imm Gran Abs Auto 0.05 X10*3/uL (0.00-0.03); Imm Gran Pct Auto 0.6 % (0.0-0.4); Lymphocytes Absolute Auto 1.8 X10*3/uL (1.2-4.9); Mean Corpuscular HGB Conc 32.3 g/dl (31.0-36.0); Mean Corpuscular Hemoglobin 29.4 pg (27.0-33.0); Mean Corpuscular Volume 91.1 fL (80.0-98.0); NRBC Abs Auto 0.000 X10*3/uL (0.0-0.012); NRBC Pct Auto 0.0 /100WBC (0.0-0.2); Platelet Count 305 X10*3/uL (160-400); Red Blood Count 5.27 X10*6/uL (4.60-5.80); White Blood Count 7.7 X10*3/uL (4.8-10.8)
[2025-06-04 08:28] LABS: Alanine Aminotransferase 31 U/L (0-40); Albumin Level 4.4 g/dL (3.5-5.0); Alkaline Phosphatase 90 U/L (39-117); Anion Gap 11 (12-20); Aspartate Amino Transferase 22 U/L (5-37); Blood Urea Nitrogen 20 mg/dL (9-16); Calcium 9.4 mg/dL (8.4-10.2); Carbon Dioxide 28 mmol/L (22-29); Chloride 105 mmol/L (96-108); Cholesterol 113 mg/dL (<200); Estimated Glomerular Filt Rate > 60; HDL Cholesterol 45 mg/dL (>40); Magnesium 2.2 mg/dL (1.6-2.6); Potassium 4.2 mmol/L (3.3-5.1); Sodium 140 mmol/L (135-145); Total Protein 7.1 g/dL (6.5-8.0); Triglycerides 82 mg/dL (<150)
[2025-06-04 08:53] LABS: Appearance Urine Cloudy; Glucose Urine UA Negative (Negative); PH 6.5 (5.0-9.0); Specific Gravity - Urine 1.015 (1.005-1.025)
[2025-06-04 08:58] LABS: Folate 12.3 ng/mL (> or = 4.0); Vitamin B12 840 pg/mL (200-900)
== END 2025-06-04 06:16 | disposition home or self-care (01) ==
LOC: HO.LAB 06:15
PROVIDERS: PCP Internal Medicine; Visit Provider Internal Medicine
DX: E11.9 Type 2 diabetes mellitus without complications (principal); D64.9 Anemia, unspecified; E78.00 Pure hypercholesterolemia, unspecified; E53.8 Deficiency of other specified B group vitamins; R30.0 Dysuria; E55.9 Vitamin D deficiency, unspecified
CPT/HCPCS: 36415; 80053; 80061; 81003; 82043; 82306; 82570; 82607; 82746; 83036; 83735; 84443; 85025

== ENCOUNTER 2025-06-18 08:51 | Outpatient (AMB) | payer MEDICARE, SELFPAY ==
--- NOTE | 2025-06-18 09:08 | MHC.PC.OV ---
Vital Signs 06/18/25 09:09 Height 5 ft 8 in Weight 166 lb 4 oz BMI 25.3 BP 120/80 Blood Pressure Location Lt brachial Position Sitting Pulse 72 Pulse Source Pulse Oximeter Pulse Oximetry (%) 96 Oxygen Delivery Method Room Air Intake Visit Reasons: hyperlipidemia, neuropathy, RLS X Ray Control Equipment Repairer Required: No Accompanied by: Self / Same As Patient Allergies amoxicillin (Augmentin) Allergy (Severe, Verified 06/18/25 09:24) ANAPHYLAXIS clavulanic acid (CLAVULANIC ACID) Allergy (Severe, Verified 06/18/25 09:24) ANAPHYLAXIS Penicillins (PENICILLINS) Allergy (Severe, Verified 06/18/25 09:24) ANAPHYLAXIS sulfamethoxazole (From Bactrim) Allergy (Severe, Verified 06/18/25 09:24) Rash trimethoprim (From Bactrim) Allergy (Severe, Verified 06/18/25 09:24) Rash metronidazole (From FLAGYL) Allergy (Intermediate, Verified 06/18/25 09:24) RASH,NAUSEA VOMITING ciprofloxacin (From CIPRO) Allergy (Mild, Verified 06/18/25 09:24) RASH Iodinated Contrast Media (IV Dye, Iodine Containing) Allergy (Unknown, Verified 06/18/25 09:24) RASH levofloxacin (From LEVAQUIN) Allergy (Unknown, Verified 06/18/25 09:24) RASH metoprolol Allergy (Unknown, Verified 06/18/25 09:24) rash piperacillin (Zosyn) Allergy (Unknown, Verified 06/18/25 09:24) UNK. Sulfa (Sulfonamide Antibiotics) Allergy (Unknown, Verified 06/18/25 09:24) rash tazobactam (Zosyn) Allergy (Unknown, Verified 06/18/25 09:24) UNK. Medication List - Last Reconciled 06/18/25 by Medardo Metz MD aspirin (Adult Aspirin Regimen) 81 mg PO DAILY atorvastatin 40 mg PO DAILY blood sugar diagnostic (FreeStyle Test strips) As directed esomeprazole magnesium 40 mg PO DAILY gabapentin 300 mg PO DAILY lancets (FreeStyle Lancets) As directed magnesium oxide 400 mg PO BEDTIME 90 days mesalamine ER 1.5 grams PO DAILY Tobacco use date assessed: 06/18/25 Fall risk assessment: No Falls in past year Last assessed Fall Risk: 06/18/25 Dental Screening Dental Screen Date: 06/18/25 Did you have a dental visit in the last 12 months?: Yes Did you have a dental problem in the last 6 months where you did not have access to dental care?: No Was dental information given to patient?: Patient has dentist HPI hyperlipidemia, neuropathy, RLS HPI Details Patient comes in today for his follow up visit States that he feels okay He denies any headaches or dizziness Denies any chest pains, no increased shortness of breath No nausea/vomiting, no abdominal pain No change in bowel habits noted He is still experiencing recurrent leg symptoms that are more prominent at night - symptoms are more of a sensation wherein he feels the need to move his legs often to stay comfortable Needs his test strips Rx refilled He had his follow up labs done a couple of weeks ago - to discuss his results [facility] Medical History Diabetes mellitus Chronic colitis Pure hypercholesterolemia Hepatic abscess Hyperglycemia Hyperlipidemia PVC (premature ventricular contraction) RBBB Stable angina CAD (coronary artery disease) Colitis Diverticulitis GERD (gastroesophageal reflux disease) Surgical History History of colonoscopy Hx of hernia repair History of surgery on arm H/O colectomy Family History Family/Other Prostate cancer CVD (cardiovascular disease) Father CVD (cardiovascular disease) Social History Household Members: Spouse Housing: House Do you presently have visiting nurse or other home services: No Alcohol intake: current Alcohol intake frequency: holidays/special occasions only Comment: Non-skid socks on Patient Tobacco Use Status: Former Tobacco user Tobacco use type: Cigarette e-Cigarette/Vaping Use: Never Used Second Hand Smoke Exposure: No service: Yes Current occupational status: retired Cognitive needs: No Hearing needs: No Vision needs: No Questionnaire PHQ-9 Over the last 2 weeks, how often have you been bothered by any of the following problems? 1. Little interest or pleasure in doing things: not at all 2. Feeling down, depressed, or hopeless: not at all 3. Trouble falling or staying asleep, or sleeping too much: not at all 4. Feeling tired or having little energy: not at all 5. Poor appetite or overeating: not at all 6. Feeling bad about yourself - or that you are a failure or have let yourself or your family down: not at all 7. Trouble concentrating on things, such as reading the newspaper or watching television: not at all 8. Moving or speaking so slowly that other people could have noticed. Or the opposite - being so fidgety or restless that you have been moving around a lot more than usual: not at all 9. Thoughts that you would be better off or of hurting yourself in some way: not at all Total score: 0 Depression Screening Interpretation: Negative Depression Screening Done: Yes 31187 - PHQ-9 Billing: Yes Source: Developed by Drs. Musa Wang, Susan Jimenez, Jovanny Browning and colleagues, with an educational jamaal from [employer]. Thrive Questionnaire Date Thrive assessed: 06/18/25 I am a: Patient What is your living situation today?: I have a steady place to live Within the past 12 months, did the food you bought not last and you didn't have the money to get more?: Never true Within the past 12 months, did you worry whether your food would run out before you got money to buy more?: Never true Do you have trouble paying for medicines?: No Do you have trouble getting transportation to medical appointments?: No Do you have trouble paying your heating and electricity bill?: No Do you have trouble taking care of your child, family member or friend?: No Do you have trouble with day-to-day activities such as bathing, preparing meals, shopping, managing finances, etc.?: No Are you currently unemployed and looking for a job?: No Are you interested in more education?: No Please select the resources that you would like help with: None Currently or been in a relationship where the following occur: No concerns reported THRIVE Score: 0 AUDIT C Alcohol Use Questionnaire (AUDIT-C) 1. How often do you have a drink containing alcohol?: Monthly or less 2. How many drinks containing alcohol do you have on a typical day when you are drinking?: 1 or 2 3. How often do you have six or more drinks on one occasion?: Never Total Score: 1 Score Reviewed/Action Taken: Yes ALEJANDRA-7 AMB Questionnaire ALEJANDRA-7 Date ALEJANDRA - 7 assessed: 06/18/25 Feeling nervous, anxious, or on edge: 0 = Not at all Not being able to stop or control worryin = Not at all Worrying too much about different things: 0 = Not at all Trouble relaxin = Not at all Being so restless that it is hard to sit still: 0 = Not at all Becoming easily annoyed or irritable: 0 = Not at all Feeling afraid as if something awful might happen: 0 = Not at all Total ALEJANDRA-7 score (0-4 normal; 5-9 mild; 10-14 moderate; 15-21 severe): 0 Source: Developed by Drs. Musa Wang, Susan Jiemnez, Jovanny Browning and colleagues, with an educational jamaal from [employer]. Review of Systems Const Denies chills, Denies fatigue, Denies fever(s) and Denies headache(s) ENT Denies dysphagia, Denies dizziness, Denies otalgia, Denies headache(s), Denies neck pain, Denies odynophagia and Denies sore throat Card Denies chest pain, Denies palpitations and Reports dyspnea on exertion (mild; chronic) Resp Denies chest congestion, Denies cough and Reports dyspnea on exertion (mild; chronic) GI Denies abdominal pain, Denies constipation, Denies dysphagia, Denies heartburn, Denies diarrhea, Denies nausea, Denies odynophagia and Denies vomiting Details: rrrr Denies difficulty urinating, Denies dysuria, Denies nocturia and Denies urinary frequency Musc Denies back pain, Reports muscle cramps (in both legs - see HPI) and Denies neck pain Skin/Breast Denies rash Neuro Denies dizziness and Denies headache(s) Endo Denies fatigue and Denies palpitations Physical exam (Primary Care) Vital Signs: Last Vital Signs Pulse 72 06/18/25 09:09 BP 120/80 06/18/25 09:09 Pulse Ox 96 06/18/25 09:09 Oxygen Delivery Method Room Air 06/18/25 09:09 BMI result Body Mass Index 25.3 Tobacco/Smoking Status: Tobacco use Status Tobacco use date assessed 06/18/25 06/18/25 09:13 Patient Tobacco Use Status Former Tobacco user 06/18/25 09:13 Tobacco use type Cigarette 06/18/25 09:13 e-Cigarette/Vaping Use Never Used 06/18/25 09:13 PHQ-9: PHQ-9 Score PHQ-9: Total score 0 06/18/25 09:29 Depression Screening Interpretation: Negative Thrive Assessment: Date of Thrive Assessment Date Thrive assessed 06/18/25 06/18/25 09:13 Currently or been in a relationship where the following occur: No concerns reported Const General: no acute distress and alert HENMT Ears: TM's normal bilaterally and EAC's normal Throat: Yes posterior oropharynx normal and Yes tonsils normal (no TP congestion) Neck Neck: Yes supple and No lymphadenopathy Thyroid: Thyroid normal Resp Auscultation: clear to auscultation bilaterally, no rales and no wheezes Cardio Rate: regular rate Rhythm: regular rhythm Heart sounds: no murmurs GI Palpation (GI): Soft to palpation and nontender Auscultation: normal bowel sounds General: Yes no CVA tenderness Back/Spine/Pelvis Back: no CVA tenderness Thoracic/Lumbar Spine: No lumbar spinal tenderness Skin Rashes: no rashes Extrem General: Yes no clubbing, cyanosis or edema Results Reviewed Results Reviewed: Laboratory Tests 06/04/25 06/04/25 06:21 06:27 WBC 7.7 Hgb 15.5 Hct 48.0 Plt Count 305 Sodium 140 Potassium 4.2 Creatinine 0.66 Estimated GFR > 60 Fasting Glucose 136 H Hemoglobin A1c % 7.5 H Calcium 9.4 Magnesium 2.2 AST 22 ALT 31 Triglycerides 82 Cholesterol 113 LDL Cholesterol, Calc 52 HDL Cholesterol 45 Vitamin B12 840 25-OH Vitamin D Total 33.9 TSH 1.86 Ur Specific Dickinson 1.015 Urine Protein Negative Urine Glucose (UA) Negative Urine Blood Negative Urine Nitrite Negative Ur Leukocyte Esterase Negative Coding Level of Care Code Est Pt Level 4 (63446) Diagnoses 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 transplanted heart: samish heart Pure hypercholesterolemia E78.00 Gastroesophageal reflux disease without esophagitis K21.9 Esophagitis presence: without esophagitis Chronic colitis K52.9 Type 2 diabetes mellitus without complication, without long-term current use of insulin E11.9 Diabetes mellitus complication status: without complication Diabetes mellitus termite exterminator insulin use: without termite exterminator use Diabetes mellitus type: type 2 Nocturnal leg movements R25.8 Multiple drug allergies Z88.9 Additional Codes PHQ-9 - 24620 - PHQ-9 Billing: Yes ([id number]) Assessment & Plan Assessment & Plan (1) CAD (coronary artery disease): Code(s): I25.10 - Atherosclerotic heart disease of samish coronary artery without angina pectoris Category: Medical Qualifiers: Associated angina: with stable angina Coronary Disease-Associated Artery/Lesion type: samish artery [place] vs. transplanted heart: samish heart Qualified Code(s): I25.118 - Atherosclerotic heart disease of samish coronary artery with other forms of angina pectoris Plan: (+) Hx of PVCs and RBBB Lexiscan stress test done earlier this year came out normal, with no perfusion defect Cardiac catheterization showed a proximal LAD 70% stenosis. This was FFR positive at 0.73 No intervention was done given his lack of symptoms Patient also reportedly had some GI bleeding at the time although he was not on Aspirin back then He is also allergic to IV contrast so both this and his GI bleeding, in addition to his relative lack of symptoms given his LAD stenosis, are the main reasons cardiology continues to hold off on PCI but he is advised that if his symptoms progress, then they will proceed with angiography and intervention Patient currently has a pre cath plan from his house player in place with regards to his allergy to contrast medium if he should require intervention in the future Continue Aspirin 81 mg QD Follow up with cardiology as scheduled (2) Pure hypercholesterolemia: Code(s): E78.00 - Pure hypercholesterolemia, unspecified Category: Medical Plan: Results of his labs done a couple of weeks ago reviewed and discussed with patient Reinforced low cholesterol diet Continue Atorvastatin 80 mg QD Will have patient recheck his labs and fasting lipids in 6 months for follow up (3) GERD (gastroesophageal reflux disease): Code(s): K21.9 - Gastro-esophageal reflux disease without esophagitis Category: Medical Qualifiers: Esophagitis presence: without esophagitis Qualified Code(s): K21.9 - Gastro-esophageal reflux disease without esophagitis Plan: Dietary restrictions reinforced Continue Esomeprazole 40 mg QD (4) Chronic colitis: Comment: indeterminate type Code(s): K52.9 - Noninfective gastroenteritis and colitis, unspecified Category: Medical Plan: Patient's GI symptoms appear to be controlled adequately on his current Rx - Mesalamine ER 1.5 gm QD Follow up with GI as scheduled (5) Diabetes mellitus: Code(s): E11.9 - Type 2 diabetes mellitus without complications Category: Medical Qualifiers: Diabetes mellitus complication status: without complication Diabetes mellitus longterm insulin use: without longterm use Diabetes mellitus type: type 2 Qualified Code(s): E11.9 - Type 2 diabetes mellitus without complications Plan: Patient's HgbA1c remains unchanged at 7.5% on his recent labs; was also at 7.5% when previously checked in February 2024 - goal is at least <7.5% Reinforced diabetic diet He is still on NO Rx for his diabetes at this time Will recheck his FBS and HgbA1c in 6 months for follow up (6) Nocturnal leg movements: Code(s): R25.8 - Other abnormal involuntary movements Category: Medical Plan: Continue Gabapentin 300 mg QD He is currently also seeing and following up with neurology for this We also tried him on Magnesium oxide 400 mg Q HS at his last visit and he thinks that this is helping somewhat (7) Multiple drug allergies: Code(s): Z88.9 - Allergy status to unspecified drugs, medicaments and biological substances Category: Medical Plan: Follow up with his house player as scheduled Plan Follow up in 6 months Orders: Orders Complete Blood Count Auto Diff 6 Months D64.9 - Anemia, unspecified Comprehensive [place]. Panel Fast 6 Months E78.00 - Pure hypercholesterolemia, unspecified Hemoglobin A1c 6 Months E11.9 - Type 2 diabetes mellitus without complications Lipid Panel 6 Months E78.00 - Pure hypercholesterolemia, unspecified Microalbumin, Random (w Creat) 6 Months E11.9 - Type 2 diabetes mellitus without complications Vitamin B12 and Folate 6 Months E53.8 - Deficiency of other specified B group vitamins Vitamin D 25-OH Total 6 Months E55.9 - Vitamin D deficiency, unspecified UA CC w/rflx Micro + Cult 6 Months R30.0 - Dysuria TSH reflex Free T4 6 Months E78.00 - Pure hypercholesterolemia, unspecified Medications: Changed From blood sugar diagnostic (FreeStyle Test strips) As directed 100 ea 12RF E11.9 - Type 2 diabetes mellitus without complications To blood sugar diagnostic (FreeStyle Test strips) As directed once a day 100 ea 12RF E11.9 - Type 2 diabetes mellitus without complications
[2025-06-18 09:09] VITALS: BP 120/80; PULSE 72; O2SAT 96; BMI 25.3
== END 2025-06-18 09:39 | disposition home or self-care (01) ==
LOC: HO.HMCH 08:52
PROVIDERS: PCP Internal Medicine; Visit Provider Internal Medicine
DX: E11.59 Type 2 diabetes mellitus with other circulatory complications (principal); I25.118 Atherosclerotic heart disease of native coronary artery with other forms of angina pectoris; R25.8 Other abnormal involuntary movements; Z88.9 Allergy status to unspecified drugs, medicaments and biological substances

== ENCOUNTER → 2025-06-18 08:51 | Outpatient (BNVA) | payer MEDICARE, SELFPAY | PROVIDERS: PCP Internal Medicine; Visit Provider Internal Medicine | DX: I25.118 Atherosclerotic heart disease of native coronary artery with other forms of angina pectoris (principal); E78.00 Pure hypercholesterolemia, unspecified; K21.9 Gastro-esophageal reflux disease without esophagitis; K52.9 Noninfective gastroenteritis and colitis, unspecified; E11.9 Type 2 diabetes mellitus without complications; R25.8 Other abnormal involuntary movements; Z88.9 Allergy status to unspecified drugs, medicaments and biological substances | CPT/HCPCS: 96127; 99212 ==